=== PATIENT | female | born 1945 | race Caucasian/White ===

== ENCOUNTER 2018-01-21 12:39 | Inpatient (IN) | payer MEDICARE, OTHER ==
[~2018-01-21] VITALS: Ht 162.6 cm; Wt 71.6 kg
[~2018-01-21 12:39] MED LIST: ASPI81; CATA0.2D; DEPA500T3; LEVO.1; LEXA10TA; ZIPR1CAP27; ZIPR20
[2018-01-21 13:05] VITALS: BP 159/81; PULSE 68; RESP 18; TEMP 98.2; O2SAT 96
--- NOTE | 2018-01-21 13:13 | PD ---
HPI Chief Complaint: Psychiatric Symptoms Time Seen by Provider: 12:53 Travel History International Travel<30 days: No Contact w/Intl Traveler<30days: No Traveled to known affect area: No History of Present Illness HPI The patient is a 72-year-old female who presents to the emergency department with her from Dr. Karina Harrison office for psychiatric evaluation. The patient has a history of psychosis, does take medications, however, the patient and the cannot recall the name of the medications. The patient was seen 1 month ago, upon repeat visit today with Dr. Harrison it was noted the patient had an 18 pound weight loss. The patient's states the patient will sit and stare at the wall, has not been sleeping well as of lately, and has not been eating. He states the patient normally requires 8-10 hours of sleep plus a nap daily, however, she is only been sleeping approximately 2 hours/day. The states the patient will sit and stare at the wall. The patient states she has not been eating, however, she states she has been sleeping well. She denies any auditory or visual hallucinations or delusions. She denies any physical complaints except for mild shortness of breath when she is working out in the yard. She denies any headache, neck pain , current chest pain, current shortness of breath, nausea, vomiting, or abdominal pain. Symptoms are moderate. The patient is a somewhat limited historian. Much of the history is obtained from the . PFSH Past Medical History Arthritis: Yes (RA) Asthma: No Blood Disorders: No Bipolar Disorder: Yes Anxiety: Yes Depression: Yes Heart Rhythm Problems: No Cancer: Yes (THYROID CA IN 2000) Cardiovascular Problems: Yes (HEART MURMUR) High Cholesterol: No Chest Pain: No Congestive Heart Failure: No COPD: No Cerebrovascular Accident: No Coronary Artery Disease: Yes Diabetes: No Diminished Hearing: No Endocrine: Yes (THYROIDECTOM S/P [place] 2000) GERD: No Genitourinary: No Headaches: No Hepatitis: No Hiatal Hernia: No Hypertension: Yes Immune Disorder: No Kidney Stones: No Musculoskeletal: Yes (RHEUMATOID ARTHRITIS) Neurologic: No Psychiatric: Yes ([facility] 2000, BIPOLAR) Reproductive: No Respiratory: No Integumentary: Yes (STATES SKIN INFECTION ON FOREHEAD) Migraines: No Myocardial Infarction: No Radiation Therapy: Yes Renal Failure: No Seizures: No Sleep Apnea: No Thyroid Disease: Yes (THYROID CANCER) Ulcer: No Past Surgical History Abdominal Surgery: No AICD: No Appendectomy: No Arteriovenous Shunt: No Cardiac Surgery: No Cholecystectomy: No Ear Surgery: No Endocrine Surgery: Yes (THYROIDECTOMY 2000) Eye Surgery: No Genitourinary Surgery: No Gynecologic Surgery: No Insulin Pump: No Joint Replacement: No Oral Surgery: No Pacemaker: No Thoracic Surgery: No Tonsillectomy: Yes Other Surgery: Yes (LUMPECTOMY, RT BREAST CYST REMOVE) Social History Alcohol Use: No Tobacco Use: No Substance Use: No Allergies-Medications (Allergen,Severity, Reaction): Coded Allergies: Iodinated Contrast- Oral and IV Dye (Verified Allergy, Unknown, 01/21/18) Reported Meds & Prescriptions Reported Meds & Active Scripts Active Reported Valsartan-Hydrochlorothiazide 320-25 Mg Tab 1 Tab PO DAILY Valsartan 80 Mg Tab 160 Mg PO BID Norvasc (Amlodipine Besylate) 5 Mg Tab 5 Mg PO DAILY Synthroid (Levothyroxine Sodium) 125 Mcg Tab 125 Mcg PO EVERY OTHER DAY Alternate with Synthroid 137mcg every other day Synthroid (Levothyroxine Sodium) 137 Mcg Tab 137 Mcg PO EVERY OTHER DAY Alternate with Synthroid 125mcg every other day Trazodone (Trazodone HCl) 150 Mg Tablet 150-300 Mg PO HS PRN Ativan (Lorazepam) 1 Mg Tab 1 Mg PO TID PRN Aspirin Adult Low Strength (Aspirin) 81 Mg Tabdr 81 Mg PO DAILY Review of Systems ROS Limitations: Poor Historian Except as stated in HPI: all other systems reviewed are Neg General / Constitutional: Positive: Weight Loss (18 pound weight loss according to the ), No: Fever HENT: No: Lightheadedness Cardiovascular: Positive: Dyspnea on exertion (Shortness of breath when working on the yard), No: Chest Pain or Discomfort Respiratory: No: Shortness of Breath Gastrointestinal: No: Nausea, Vomiting, Abdominal Pain Psychiatric: Positive: Other (History of psychosis, according to the the patient has not been eating and has not been sleeping for the last month), No: Depression, Suicidal Ideations, Substance Abuse, Homicidal Ideation Physical Exam Narrative GENERAL: Awake, alert, pleasant 9-year-old female who appears her stated age and is in no acute respiratory distress. SKIN: Focused skin assessment warm/dry. HEAD: Atraumatic. Normocephalic. EYES: Pupils equal and round. 3 mm bilateral and reactive. ENT: No nasal bleeding or discharge. Mucous membranes pink and moist. NECK: Trachea midline. No JVD. CARDIOVASCULAR: Regular rate and rhythm. Holosystolic murmur noted. RESPIRATORY: No accessory muscle use. Clear to auscultation. Breath sounds equal bilaterally. GASTROINTESTINAL: Abdomen soft, non-tender, nondistended. MUSCULOSKELETAL: No obvious deformities. No clubbing. No cyanosis. No edema. NEUROLOGICAL: Awake and alert. No obvious cranial nerve deficits. Motor grossly within normal limits. Normal speech. PSYCHIATRIC: Flat affect. Data Data Last Documented VS Vital Signs Date Time Temp Pulse Resp B/P (MAP) Pulse Ox O2 Delivery O2 Flow Rate FiO2 01/21/18:18 68 20 01/21/18 13:05 98.2 159/81 (107) 96 Room Air Orders Orders Complete Blood Count With Diff (01/21/18 13:05) Comprehensive Metabolic Panel (01/21/18 13:05) Thyroid Stimulating Hormone (01/21/18 13:05) Urinalysis - C+S If Indicated (01/21/18 13:05) Electrocardiogram (01/21/18 13:05) Psych Screen (01/21/18 13:05) Drug Screen, Random Urine (01/21/18 13:05) Alcohol (Ethanol) (01/21/18 13:05) Valproic Acid (Depakene) (01/21/18 13:05) Free T3 (01/21/18 14:43) Free Thyroxine (T4) (01/21/18 14:43) Urine Culture (01/21/18 15:00) Ciprofloxacin (Cipro) (01/21/18 16:15) Labs Laboratory Tests Test 01/21/18 13:10 01/21/18 15:00 White Blood Count 8.7 TH/MM3 Red Blood Count 4.68 MIL/MM3 Hemoglobin 14.5 GM/DL Hematocrit 42.0 % Mean Corpuscular Volume 89.8 FL Mean Corpuscular Hemoglobin 31.0 PG Mean Corpuscular Hemoglobin Concent 34.5 % Red Cell Distribution Width 14.5 % Platelet Count 281 TH/MM3 Mean Platelet Volume 10.3 FL Neutrophils (%) (Auto) 77.1 % Lymphocytes (%) (Auto) 17.5 % Monocytes (%) (Auto) 4.3 % Eosinophils (%) (Auto) 0.3 % Basophils (%) (Auto) 0.8 % Neutrophils # (Auto) 6.7 TH/MM3 Lymphocytes # (Auto) 1.5 TH/MM3 Monocytes # (Auto) 0.4 TH/MM3 Eosinophils # (Auto) 0.0 TH/MM3 Basophils # (Auto) 0.1 TH/MM3 CBC Comment DIFF FINAL Differential Comment Blood Urea Nitrogen 24 MG/DL Creatinine 0.85 MG/DL Random Glucose 105 MG/DL Total Protein 7.7 GM/DL Albumin 4.3 GM/DL Calcium Level 9.9 MG/DL Alkaline Phosphatase 62 U/L Aspartate Amino Transf (AST/SGOT) 30 U/L Alanine Aminotransferase (ALT/SGPT) 34 U/L Total Bilirubin 0.7 MG/DL Sodium Level 136 MEQ/L Potassium Level 3.4 MEQ/L Chloride Level 100 MEQ/L Carbon Dioxide Level 22.3 MEQ/L Anion Gap 14 MEQ/L Estimat Glomerular Filtration Rate 66 ML/MIN Free Thyroxine 1.46 NG/DL Free Triiodothyronine (T3) pg/dL 1.79 PG/ML Thyroid Stimulating Hormone 3rd Gen 15.200 uIU/ML Valproic Acid (Depakene) Level LESS THAN 3 MCG/ML Ethyl Alcohol Level LESS THAN 3 MG/DL Urine Color YELLOW Urine Turbidity HAZY Urine pH 6.0 Urine Specific [place] 1.034 Urine Protein 100 mg/dL Urine Glucose (UA) NEG mg/dL Urine Ketones 40 mg/dL Urine Occult Blood SMALL Urine Nitrite NEG Urine Bilirubin NEG Urine Urobilinogen 4.0 MG/DL Urine Leukocyte Esterase LARGE Urine RBC 2 /hpf Urine WBC 17 /hpf Urine Squamous Epithelial Cells 1 /hpf Urine Bacteria FEW /hpf Urine Hyaline Casts 36 /lpf Urine Mucus MANY /lpf Microscopic Urinalysis Comment CULTURE INDICATED Urine Opiates Screen NEG Urine Barbiturates Screen NEG Urine Amphetamines Screen NEG Urine Benzodiazepines Screen NEG Urine Cocaine Screen NEG Urine Cannabinoids Screen NEG MDM Medical Decision Making Medical Screen Exam Complete: Yes Emergency Medical Condition: Yes Medical Record Reviewed: Yes Interpretation(s) EKG reveals sinus rhythm with occasional supraventricular premature complex. QTc 468 ms. Laboratory Tests Test 01/21/18 13:10 01/21/18 15:00 White Blood Count 8.7 TH/MM3 Red Blood Count 4.68 MIL/MM3 Hemoglobin 14.5 GM/DL Hematocrit 42.0 % Mean Corpuscular Volume 89.8 FL Mean Corpuscular Hemoglobin 31.0 PG Mean Corpuscular Hemoglobin Concent 34.5 % Red Cell Distribution Width 14.5 % Platelet Count 281 TH/MM3 Mean Platelet Volume 10.3 FL Neutrophils (%) (Auto) 77.1 % Lymphocytes (%) (Auto) 17.5 % Monocytes (%) (Auto) 4.3 % Eosinophils (%) (Auto) 0.3 % Basophils (%) (Auto) 0.8 % Neutrophils # (Auto) 6.7 TH/MM3 Lymphocytes # (Auto) 1.5 TH/MM3 Monocytes # (Auto) 0.4 TH/MM3 Eosinophils # (Auto) 0.0 TH/MM3 Basophils # (Auto) 0.1 TH/MM3 CBC Comment DIFF FINAL Differential Comment Blood Urea Nitrogen 24 MG/DL Creatinine 0.85 MG/DL Random Glucose 105 MG/DL Total Protein 7.7 GM/DL Albumin 4.3 GM/DL Calcium Level 9.9 MG/DL Alkaline Phosphatase 62 U/L Aspartate Amino Transf (AST/SGOT) 30 U/L Alanine Aminotransferase (ALT/SGPT) 34 U/L Total Bilirubin 0.7 MG/DL Sodium Level 136 MEQ/L Potassium Level 3.4 MEQ/L Chloride Level 100 MEQ/L Carbon Dioxide Level 22.3 MEQ/L Anion Gap 14 MEQ/L Estimat Glomerular Filtration Rate 66 ML/MIN Free Thyroxine 1.46 NG/DL Free Triiodothyronine (T3) pg/dL 1.79 PG/ML Thyroid Stimulating Hormone 3rd Gen 15.200 uIU/ML Valproic Acid (Depakene) Level LESS THAN 3 MCG/ML Ethyl Alcohol Level LESS THAN 3 MG/DL Urine Color YELLOW Urine Turbidity HAZY Urine pH 6.0 Urine Specific [place] 1.034 Urine Protein 100 mg/dL Urine Glucose (UA) NEG mg/dL Urine Ketones 40 mg/dL Urine Occult Blood SMALL Urine Nitrite NEG Urine Bilirubin NEG Urine Urobilinogen 4.0 MG/DL Urine Leukocyte Esterase LARGE Urine RBC 2 /hpf Urine WBC 17 /hpf Urine Squamous Epithelial Cells 1 /hpf Urine Bacteria FEW /hpf Urine Hyaline Casts 36 /lpf Urine Mucus MANY /lpf Microscopic Urinalysis Comment CULTURE INDICATED Urine Opiates Screen NEG Urine Barbiturates Screen NEG Urine Amphetamines Screen NEG Urine Benzodiazepines Screen NEG Urine Cocaine Screen NEG Urine Cannabinoids Screen NEG Differential Diagnosis Differential diagnosis includes psychosis, schizophrenia, catatonic schizophrenia, depressive disorder NOS, depression with psychosis, hypothyroidism, delirium, UTI, dehydration, acute kidney injury. Narrative Course Labs are drawn and sent. UA and TSH were sent to lab. The patient's TSH was elevated, therefore, free T4 and free T3 were sent to lab. Free T4 is within normal limits, free T3 slightly low. UA does reveal 17 WBCs, therefore, patient will be treated for UTI with Cipro. The patient is medically cleared to be evaluated by psychiatry. Disposition as per psych. Diagnosis Primary Impression: Severe major depression with psychotic features Additional Impressions: UTI (urinary tract infection) Qualified Codes: N30.00 - Acute cystitis without hematuria Hypothyroidism Qualified Codes: E03.9 - Hypothyroidism, unspecified Med/Other Pt SpecificInfo: Prescription(s) given Scripts Ciprofloxacin (Cipro) 500 Mg Tab 500 MG PO BID for Infection for 7 Days, #14 TAB 0 Refills Prov: Pastor Matamoros MD 01/21/18 Condition: Stable Pastor Matamoros MD Jan 21, 2018 13:12
[2018-01-21 13:38] LABS: AUTOMATED NEUTROPHIL # 6.7 TH/MM3 (1.8-7.7); BASOPHIL # 0.1 TH/MM3 (0-0.2); BASOPHIL % 0.8 % (0.0-2.0); EOSINOPHIL % 0.3 % (0.0-4.0); HEMOGLOBIN 14.5 GM/DL (11.6-15.3); LYMPH % 17.5 % (9.0-44.0); LYMPHOCYTE # 1.5 TH/MM3 (1.0-4.8); MEAN CELL VOLUME 89.8 FL (80.0-100.0); MEAN CORPUSCULAR HGB CONC 34.5 % (32.0-36.0); MEAN PLATELET VOLUME 10.3 FL (7.0-11.0); MONO % 4.3 % (0.0-8.0); MONOCYTE # 0.4 TH/MM3 (0-0.9); NEUT % 77.1 % (16.0-70.0); PLATELET COUNT 281 TH/MM3 (150-450); RED BLOOD COUNT 4.68 MIL/MM3 (4.00-5.30); RED CELL DISTRIBUTION WIDTH 14.5 % (11.6-17.2); WHITE BLOOD COUNT 8.7 TH/MM3 (4.0-11.0)
[2018-01-21 13:54] LABS: ALBUMIN 4.3 GM/DL (3.4-5.0); ALT (GPT) 34 U/L (10-53); BICARBONATE 22.3 MEQ/L (21.0-32.0); BLOOD UREA NITROGEN 24 MG/DL (7-18); CALCIUM 9.9 MG/DL (8.5-10.1); CHLORIDE 100 MEQ/L (98-107); CREATININE 0.85 MG/DL (0.50-1.00); GLOMERULAR FILTRATION RATE 66 ML/MIN (>89); GLUCOSE,RANDOM 105 MG/DL (74-106); SODIUM (NA) 136 MEQ/L (136-145)
[2018-01-21 14:03] LABS: ALKALINE PHOSPHATASE 62 U/L (45-117); AST (GOT) 30 U/L (15-37); TOTAL BILIRUBIN ADULT 0.7 MG/DL (0.2-1.0); TOTAL PROTEIN 7.7 GM/DL (6.4-8.2)
[2018-01-21 15:31] LABS: BACTERIA, URINE FEW /hpf; BLOOD, URINE SMALL (NEG); GLUCOSE,URINE NEG (NEG); HYALINE CAST, URINE 36 /lpf (RARE); KETONE, URINE 40 mg/dL (NEG); MUCUS URINE MANY /lpf (OCC); NITRITE,URINE NEG (NEG); SQUAMOUS EPITHELIAL CELL URINE 1 /hpf (0-5); URINE COLOR YELLOW (YELLW/STRAW); URINE LEUKOCYTE ESTERASE LARGE (NEG)
[2018-01-21 15:57] LABS: FREE T3 1.79 PG/ML (2.18-3.98); FREE T4 1.46 NG/DL (0.76-1.46)
[2018-01-21 15:58] LABS: BILIRUBIN, URINE NEG (NEG)
[2018-01-21] MEDS ORDERED: CIPROFLOXACIN 500 MG TAB PO ONE (16:15)
[2018-01-21] MEDS ORDERED: LORA-474 PO (16:16)
[2018-01-21] MEDS ORDERED: TRAZ1TAB14 PO (16:16)
[2018-01-21] MEDS ORDERED: LEVO-86 PO (16:16)
[2018-01-21] MEDS ORDERED: AMLO5 PO (16:16)
[2018-01-21] MEDS ORDERED: LEVO.125 PO (16:16)
[2018-01-21] MEDS ORDERED: VALS320T6 PO (16:16)
[2018-01-21] MEDS ORDERED: ASPI81TA16 PO (16:16)
[2018-01-21] MEDS ORDERED: VALS1TAB64 PO (16:16)
[2018-01-21] MEDS ORDERED: CIPR-9 PO (16:18)
[2018-01-22 01:00] VITALS: BP 173/86; PULSE 76; RESP 16; O2SAT 97
--- NOTE | 2018-01-22 06:36 | PD ---
Physical Exam Date Seen by Provider: Jan 22, 2018 Time Seen by Provider: 00:00 Narrative medically cleared by Dr Matamoros for psych evaluation Data Data Last Documented VS Vital Signs Date Time Temp Pulse Resp B/P (MAP) Pulse Ox O2 Delivery O2 Flow Rate FiO2 01/22/18 01:00 76 16 173/86 (115) 97 Room Air 01/21/18 13:05 98.2 Orders Orders Complete Blood Count With Diff (01/21/18 13:05) Comprehensive Metabolic Panel (01/21/18 13:05) Thyroid Stimulating Hormone (01/21/18 13:05) Urinalysis - C+S If Indicated (01/21/18 13:05) Electrocardiogram (01/21/18 13:05) Psych Screen (01/21/18 13:05) Drug Screen, Random Urine (01/21/18 13:05) Alcohol (Ethanol) (01/21/18 13:05) Valproic Acid (Depakene) (01/21/18 13:05) Free T3 (01/21/18 14:43) Free Thyroxine (T4) (01/21/18 14:43) Urine Culture (01/21/18 15:00) Ciprofloxacin (Cipro) (01/21/18 16:15) Labs Laboratory Tests Test 01/21/18 13:10 01/21/18 15:00 White Blood Count 8.7 TH/MM3 Red Blood Count 4.68 MIL/MM3 Hemoglobin 14.5 GM/DL Hematocrit 42.0 % Mean Corpuscular Volume 89.8 FL Mean Corpuscular Hemoglobin 31.0 PG Mean Corpuscular Hemoglobin Concent 34.5 % Red Cell Distribution Width 14.5 % Platelet Count 281 TH/MM3 Mean Platelet Volume 10.3 FL Neutrophils (%) (Auto) 77.1 % Lymphocytes (%) (Auto) 17.5 % Monocytes (%) (Auto) 4.3 % Eosinophils (%) (Auto) 0.3 % Basophils (%) (Auto) 0.8 % Neutrophils # (Auto) 6.7 TH/MM3 Lymphocytes # (Auto) 1.5 TH/MM3 Monocytes # (Auto) 0.4 TH/MM3 Eosinophils # (Auto) 0.0 TH/MM3 Basophils # (Auto) 0.1 TH/MM3 CBC Comment DIFF FINAL Differential Comment Blood Urea Nitrogen 24 MG/DL Creatinine 0.85 MG/DL Random Glucose 105 MG/DL Total Protein 7.7 GM/DL Albumin 4.3 GM/DL Calcium Level 9.9 MG/DL Alkaline Phosphatase 62 U/L Aspartate Amino Transf (AST/SGOT) 30 U/L Alanine Aminotransferase (ALT/SGPT) 34 U/L Total Bilirubin 0.7 MG/DL Sodium Level 136 MEQ/L Potassium Level 3.4 MEQ/L Chloride Level 100 MEQ/L Carbon Dioxide Level 22.3 MEQ/L Anion Gap 14 MEQ/L Estimat Glomerular Filtration Rate 66 ML/MIN Free Thyroxine 1.46 NG/DL Free Triiodothyronine (T3) pg/dL 1.79 PG/ML Thyroid Stimulating Hormone 3rd Gen 15.200 uIU/ML Valproic Acid (Depakene) Level LESS THAN 3 MCG/ML Ethyl Alcohol Level LESS THAN 3 MG/DL Urine Color YELLOW Urine Turbidity HAZY Urine pH 6.0 Urine Specific [place] 1.034 Urine Protein 100 mg/dL Urine Glucose (UA) NEG mg/dL Urine Ketones 40 mg/dL Urine Occult Blood SMALL Urine Nitrite NEG Urine Bilirubin NEG Urine Urobilinogen 4.0 MG/DL Urine Leukocyte Esterase LARGE Urine RBC 2 /hpf Urine WBC 17 /hpf Urine Squamous Epithelial Cells 1 /hpf Urine Bacteria FEW /hpf Urine Hyaline Casts 36 /lpf Urine Mucus MANY /lpf Microscopic Urinalysis Comment CULTURE INDICATED Urine Opiates Screen NEG Urine Barbiturates Screen NEG Urine Amphetamines Screen NEG Urine Benzodiazepines Screen NEG Urine Cocaine Screen NEG Urine Cannabinoids Screen NEG MDM Medical Record Reviewed: Yes Supervised Visit with OTIS: No Differential Diagnosis please refer to Dr Mataomros's note Narrative Course please refer to Dr Matamoros's note Patietn resting quietly voicing no complaints--waiting for psych evaluation Diagnosis Primary Impression: Severe major depression with psychotic features Additional Impressions: Hypothyroidism Qualified Codes: E03.9 - Hypothyroidism, unspecified UTI (urinary tract infection) Qualified Codes: N30.00 - Acute cystitis without hematuria Scripts Ciprofloxacin (Cipro) 500 Mg Tab 500 MG PO BID for Infection for 7 Days, #14 TAB 0 Refills Prov: Pastor Matamoros MD 01/21/18 Condition: Stable Temi House MD Jan 22, 2018 06:36
[2018-01-22 07:46] VITALS: BP 144/85; PULSE 83; RESP 18; O2SAT 98
--- NOTE | 2018-01-22 09:21 | PD ---
History of Present Illness Chief Complaint: Psychiatric Symptoms Time Seen by Provider: 09:00 Travel History International Travel<30 Days: No Contact w/Intl Traveler<30days: No Known affected area: No Legal Status Legal Status: Involuntary Bailey Act Comment: JO Arment[place] History of Present Illness: History of Present Illness HPI The patient is a 72-year-old , female with past psychiatric history of bipolar disorder, depressed, psychosis NOS, hx thyroidectomy ,who presents to the emergency department with her from Dr. Karina Harrison office for psychiatric evaluation. As per ED documentation "the patient was seen at her primary care's office with a reported weight loss of 18 pounds in the last 4 weeks. The reports that the patient will sit and stare at the wall, has not been sleeping well and only getting about 2 hours of sleep per day, has not been eating. EMR is reviewed. UA is positive for UTI, TSH elevated, free T4 WNL, Free T3 sl low. EKG obtained in ED. The patient was last psychiatric hospitalized at [facility] in 2006. At that time she presented with paranoia, agitation, hypomanic. I attempted to obtain collateral information from her , Ilya at [phone]. Generic message left for him to call [facility]. As per nursing report the patient has not eaten since she has been here in the ED. The patient is seen. She is awake. She is dressed casually and maintaining basic hygiene. There is significant psychomotor retardation noted. Her affect is very blunted. Her speech is very soft, latency of response, monosyllabic. She is alert and oriented 4. Denies any hallucinations. She appears internally preoccupied. No paranoia or delusions. Denies suicidal or homicidal ideation, intent or plan. Patient is hesitant and when admission is recommended she is hesitant about such, therefore she will be placed under an involuntary status. PFSH Past Medical History Arthritis: Yes (RA) Asthma: No Blood Disorders: No Bipolar Disorder: Yes Anxiety: Yes Depression: Yes Heart Rhythm Problems: No Cancer: Yes (THYROID CA IN 2000) Cardiovascular Problems: Yes (HEART MURMUR) High Cholesterol: No Chest Pain: No Congestive Heart Failure: No COPD: No Cerebrovascular Accident: No Coronary Artery Disease: Yes Diabetes: No Diminished Hearing: No Endocrine: Yes (THYROIDECTOMy S/P CA IN 2000) GERD: No Genitourinary: No Headaches: No Hepatitis: No Hiatal Hernia: No Hypertension: Yes Immune Disorder: No Kidney Stones: No Musculoskeletal: Yes (RHEUMATOID ARTHRITIS) Neurologic: No Psychiatric: Yes (HPC 2000, BIPOLAR) Reproductive: No Respiratory: No Integumentary: Yes (STATES SKIN INFECTION ON FOREHEAD) Immunizations Current: Yes Migraines: No Myocardial Infarction: No Radiation Therapy: Yes Renal Failure: No Seizures: No Sleep Apnea: No Thyroid Disease: Yes (THYROID CANCER) Ulcer: No Past Surgical History Abdominal Surgery: No AICD: No Appendectomy: No Arteriovenous Shunt: No Cardiac Surgery: No Cholecystectomy: No Ear Surgery: No Endocrine Surgery: Yes (THYROIDECTOMY 2000) Eye Surgery: No Genitourinary Surgery: No Gynecologic Surgery: No Insulin Pump: No Joint Replacement: No Oral Surgery: No Pacemaker: No Thoracic Surgery: No Tonsillectomy: Yes Other Surgery: Yes (LUMPECTOMY, RT BREAST CYST REMOVE) Psychiatric History Psychiatric History Hx Psychiatric Treatment: Past admission January 2007x 2 for psychotic disorder, hypomania. Denies past suicide attempt. Patient not currently being treated by psychiatry. History of Inpatient Treatment: Yes Guns or firearms in home: No Social History Most of the information is obtained from review of the record. The patient has been since 2002. She lives with her Ilya. She is retired. Has a degree in business. And worked for her [employer]. Hx Alcohol Use: No Hx Tobacco Use: No Hx Substance Use: No Hx of Substance Use Treatment: No Allergies-Medications (Allergen,Severity, Reaction): Coded Allergies: Iodinated Contrast- Oral and IV Dye (Verified Allergy, Unknown, 01/21/18) Reported Meds & Prescriptions Reported Meds & Active Scripts Active Cipro (Ciprofloxacin HCl) 500 Mg Tab 500 Mg PO BID 7 Days Reported Valsartan-Hydrochlorothiazide 320-25 Mg Tab 1 Tab PO DAILY Valsartan 80 Mg Tab 160 Mg PO BID Norvasc (Amlodipine Besylate) 5 Mg Tab 5 Mg PO DAILY Synthroid (Levothyroxine Sodium) 125 Mcg Tab 125 Mcg PO EVERY OTHER DAY Alternate with Synthroid 137mcg every other day Synthroid (Levothyroxine Sodium) 137 Mcg Tab 137 Mcg PO EVERY OTHER DAY Alternate with Synthroid 125mcg every other day Trazodone (Trazodone HCl) 150 Mg Tablet 150-300 Mg PO HS PRN Ativan (Lorazepam) 1 Mg Tab 1 Mg PO TID PRN Aspirin Adult Low Strength (Aspirin) 81 Mg Tabdr 81 Mg PO DAILY Review of Systems ROS Limitations: Poor Historian Constitutional: COMPLAINS OF: Weight loss Psychiatric: COMPLAINS OF: Mood changes, Depression Mental Status Examination Appearance: Appropriate Consciousness: Alert Orientation: x4 Motor Activity: Other (Psychomotor retardation) Speech: Hesitant, Slow Language: Adequate Fund of Knowledge: Adequate (Unable to evaluate) Attention and Concentration: Inadequate Memory: Unremarkable (Unable to evaluate with) Mood: Other (Depressed) Affect: Blunt Thought Process & Associations: Other (Appears internally preoccupied) Thought Content: Thought blocking Hallucination Type: None Delusion Type: None Suicidal Ideation: No Suicidal Plan: No Suicidal Intention: No Homicidal Ideation: No Homicidal Plan: No Homicidal Intention: No Insight: Fair Judgment: Poor MDM Medical Decision Making Medical Record Reviewed: Yes Assessment/Plan The patient is a 72-year-old , female with past psychiatric history of bipolar disorder, depressed, psychosis NOS, who presents to the emergency department with her from Dr. Karina Harrison office for psychiatric evaluation. As per ED documentation "the patient was seen at her primary care's office with a reported weight loss of 18 pounds in the last 4 weeks. The reports that the patient will sit and stare at the wall, has not been sleeping well and only getting about 2 hours of sleep per day, has not been eating. Patient on psychiatric evaluation presents with marked psychomotor retardation, depressed mood, thought blocking. At this time the patient will be admitted to inpatient psychiatric unit for further evaluation, stabilization, and medication adjustment. A consult with hospitalist will be obtained for management of medical issues. Orders Orders Complete Blood Count With Diff (01/21/18 13:05) Comprehensive Metabolic Panel (01/21/18 13:05) Thyroid Stimulating Hormone (01/21/18 13:05) Urinalysis - C+S If Indicated (01/21/18 13:05) Electrocardiogram (01/21/18 13:05) Psych Screen (01/21/18 13:05) Drug Screen, Random Urine (01/21/18 13:05) Alcohol (Ethanol) (01/21/18 13:05) Valproic Acid (Depakene) (01/21/18 13:05) Free T3 (01/21/18 14:43) Free Thyroxine (T4) (01/21/18 14:43) Urine Culture (01/21/18 15:00) Ciprofloxacin (Cipro) (01/21/18 16:15) Results Vital Signs Date Time Temp Pulse Resp B/P (MAP) Pulse Ox O2 Delivery O2 Flow Rate FiO2 01/22/18 07:46 83 18 144/85 (104) 98 Nasal Cannula 2.00 01/22/18 01:00 76 16 173/86 (115) 97 Room Air 01/21/18 13:18 68 20 01/21/18 13:05 98.2 68 18 159/81 (107) 96 Room Air Laboratory Tests Test 01/21/18 13:10 01/21/18 15:00 White Blood Count 8.7 Red Blood Count 4.68 Hemoglobin 14.5 Hematocrit 42.0 Mean Corpuscular Volume 89.8 Mean Corpuscular Hemoglobin 31.0 Mean Corpuscular Hemoglobin Concent 34.5 Red Cell Distribution Width 14.5 Platelet Count 281 Mean Platelet Volume 10.3 Neutrophils (%) (Auto) 77.1 Lymphocytes (%) (Auto) 17.5 Monocytes (%) (Auto) 4.3 Eosinophils (%) (Auto) 0.3 Basophils (%) (Auto) 0.8 Neutrophils # (Auto) 6.7 Lymphocytes # (Auto) 1.5 Monocytes # (Auto) 0.4 Eosinophils # (Auto) 0.0 Basophils # (Auto) 0.1 CBC Comment DIFF FINAL Differential Comment Blood Urea Nitrogen 24 Creatinine 0.85 Random Glucose 105 Total Protein 7.7 Albumin 4.3 Calcium Level 9.9 Alkaline Phosphatase 62 Aspartate Amino Transf (AST/SGOT) 30 Alanine Aminotransferase (ALT/SGPT) 34 Total Bilirubin 0.7 Sodium Level 136 Potassium Level 3.4 Chloride Level 100 Carbon Dioxide Level 22.3 Anion Gap 14 Estimat Glomerular Filtration Rate 66 Free Thyroxine 1.46 Free Triiodothyronine (T3) pg/dL 1.79 Thyroid Stimulating Hormone 3rd Gen 15.200 Valproic Acid (Depakene) Level LESS THAN 3 Ethyl Alcohol Level LESS THAN 3 Urine Color YELLOW Urine Turbidity HAZY Urine pH 6.0 Urine Specific [place] 1.034 Urine Protein 100 Urine Glucose (UA) NEG Urine Ketones 40 Urine Occult Blood SMALL Urine Nitrite NEG Urine Bilirubin NEG Urine Urobilinogen 4.0 Urine Leukocyte Esterase LARGE Urine RBC 2 Urine WBC 17 Urine Squamous Epithelial Cells 1 Urine Bacteria FEW Urine Hyaline Casts 36 Urine Mucus MANY Microscopic Urinalysis Comment CULTURE INDICATED Urine Opiates Screen NEG Urine Barbiturates Screen NEG Urine Amphetamines Screen NEG Urine Benzodiazepines Screen NEG Urine Cocaine Screen NEG Urine Cannabinoids Screen NEG Date/Time Source Procedure Growth Status 01/21/18 15:00 Urine Random Urine Urine Culture Pending Received Diagnosis Primary Impression: Severe major depression with psychotic features Additional Impressions: Hypothyroidism UTI (urinary tract infection) Bipolar disorder current episode depressed Admitting Information Admitting Physician Requests: Admit Prescriptions Ciprofloxacin (Cipro) 500 Mg Tab 500 MG PO BID for Infection for 7 Days, #14 TAB 0 Refills Prov: Pastor Matamoros MD 01/21/18 Condition: Stable Problem Qualifiers Additional Impressions: Hypothyroidism Qualified Codes: E03.9 - Hypothyroidism, unspecified UTI (urinary tract infection) Qualified Codes: N30.00 - Acute cystitis without hematuria Agnieszka Miranda Jan 22, 2018 09:20
[2018-01-22] MEDS ORDERED: ACETAMINOPHEN 325 MG TAB PO PRN (10:00)
[2018-01-22] MEDS ORDERED: ALUMINUM/MAGNESIUM/SIMETH 30 ML CUP PO PRN (10:00)
[2018-01-22 14:09] VITALS: BP 142/81; PULSE 78; RESP 16; TEMP 97.5
--- NOTE | 2018-01-22 18:28 | EKG ---
Date Performed: 01/21/2018 Time Performed: 13:28:18 PTAGE: 72 years EKG: Sinus rhythm WITH OCCASIONAL SUPRAVENTRICULAR PREMATURE COMPLEXES PROLONGED QT INTERVAL ABNORMAL ECG INTERPRETATI ON BASED ON A DEFAULT AGE OF 40 YEARS PREVIOUS TRACING : 02/06/2007 00.17 Since the previous tracing, no significant change not ed DOCTOR: Mariah Mendoza Interpretating Date/Time 01/22/2018 18:26:38
[2018-01-23 05:52] VITALS: BP 155/86; PULSE 101; RESP 18; TEMP 97.7; O2SAT 97
[2018-01-23 08:17] LABS: AUTOMATED NEUTROPHIL # 4.6 TH/MM3 (1.8-7.7); BASOPHIL % 0.6 % (0.0-2.0); EOSINOPHIL % 0.7 % (0.0-4.0); HEMATOCRIT 41.4 % (35.0-46.0); HEMOGLOBIN 14.3 GM/DL (11.6-15.3); LYMPH % 23.7 % (9.0-44.0); LYMPHOCYTE # 1.5 TH/MM3 (1.0-4.8); MEAN CELL VOLUME 90.7 FL (80.0-100.0); MEAN CORPUSCULAR HEMOGLOBIN 31.2 PG (27.0-34.0); MEAN CORPUSCULAR HGB CONC 34.4 % (32.0-36.0); MEAN PLATELET VOLUME 10.5 FL (7.0-11.0); MONOCYTE # 0.3 TH/MM3 (0-0.9); PLATELET COUNT 259 TH/MM3 (150-450); RED BLOOD COUNT 4.57 MIL/MM3 (4.00-5.30); RED CELL DISTRIBUTION WIDTH 14.4 % (11.6-17.2); WHITE BLOOD COUNT 6.5 TH/MM3 (4.0-11.0)
[2018-01-23 09:08] LABS: BICARBONATE 20.9 MEQ/L (21.0-32.0); BLOOD UREA NITROGEN 25 MG/DL (7-18); CALCIUM 9.5 MG/DL (8.5-10.1); CHLORIDE 101 MEQ/L (98-107); CHOLESTEROL 156 MG/DL (120-200); GLOMERULAR FILTRATION RATE 71 ML/MIN (>89); GLUCOSE,RANDOM 93 MG/DL (74-106); SODIUM (NA) 138 MEQ/L (136-145); TRIGLYCERIDES 109 MG/DL (42-150)
[2018-01-23 09:11] LABS: HDL CHOLESTEROL 34.6 MG/DL (40.0-60.0); LDL CHOLESTEROL 100 MG/DL (0-99)
[2018-01-23] MEDS: amLODIPine BESYLATE 5 MG TAB PO SCH (09:43)
[2018-01-23] MEDS: ASPIRIN EC 81 MG TABEC PO SCH (09:43)
--- NOTE | 2018-01-23 09:47 | HHI.HP ---
Provisional Diagnosis Admission Date Jan 22, 2018 at 09:54 [place] I. 1. Bipolar disorder, currently depressed, severe without psychotic features Rule out component of depression secondary to thyroid derangement [place] II. Deferred Certification of Person's Competence To Provide Express and Informed Consent I have personally examined Amanda Jones , a person being served at [facility] on, Jan 23, 2018 09:47. Express and informed consent means consent voluntarily given in writing, by a competent person, after sufficient explanation and disclosure of the subject matter involved to enable the person to make a knowing and willful decision without any element of force, fraud, deceit, duress, or other form of constraint or coercion. This person is 18 years of age or older, is not now known to be incompetent to consent to treatment with a guardian advocate, and does not have a health care surrogate or proxy currently making medical treatment decisions. I have found this person to be one of the following: [] Competent to provide express and informed consent, as defined above, for voluntary admission to this facility and is competent to provide express and informed consent for treatment. He/she has the consistent capacity to make well reasoned, willful, and knowing decisions concerning his or her medical or mental health treatment. The person fully and consistently understands the purpose of the admission for examination/placement and is fully capable of personally exercising all rights [place] [x] Incompetent to provide express and informed consent to voluntary admission, and this is incompetent to provide express and informed consent to treatment. The person must be transferred to involuntary status and a petition for a guardian advocate filed with the Circuit Court. [] Refusing to provide express and informed consent to voluntary admission but is competent to provide express and informed consent for treatment. The person must be discharged or transferred to involuntary status. Form shall be completed within 24 hours of a person's arrival at the receiving facility and filed in the clinical record of each person: 1. Admitted on a voluntary basis 2. Permitted to provide express and informed consent to his/her own treatment 3. Allowed to transfer from involuntary to voluntary status 4. Prior to permitting a person to consent to his or her own treatment after having been previously found incompetent to consent to treatment. History of Present Illness Capacity: Lacks Capacity Psych Chief Complaint: Depression, self-care deficit HPI Ms. Jones is a 72-year-old female with a history of bipolar disorder who was sent to the ED by primary care provider with out of concern for depression in self-care deficit. She was evaluated and placed under a Bailey act by the psychiatric nurse practitioner in the emergency department. Reviewing the electronic medical record, I note the patient was admitted under Dr. Escalante in 2006. Patient seen and examined with nurse. Chart reviewed. Case discussed with nursing staff. Patient has been refusing medications. I also see that there is notation of significant weight loss recently. Patient presents as delayed and psychomotor slowed. Speech is soft with increased speech latency. She appears somewhat fretful, anxious and dysphoric. She is a alexithymic with respect to mood but says that she has felt poorly for the last month or so. She says that her symptoms began after she tapered off steroids for management of a joint condition. She endorses poor sleep and poor appetite. I can elicit no hypomanic or manic symptoms presently. She denies any suicidal or homicidal ideation but seems unreliable to contract for safety. She denies any audiovisual hallucinations. I can elicit no jie delusional material. Remainder of the psychiatric ROS is negative. No acute physical complaints. [place] to obtain collateral information from patient's Ilya Jones. I called both numbers listed in the EMR and left a generic voicemail requesting a call back at both. [Update: was able to reach later. He is willing to act as HCS. We discuss at great length patient's pharmacotherapeutic options for her psychiatric condition. He provides consent for meds as detailed below. We discuss legal status. I spent ~10min in telephone consultation with .] I was able to reach patient's brother Jeannie Alamo at the number listed in the EMR. He notes that patient's psychiatric illness began shortly after she her current . He notes that the family does not trust current , although he makes no specific allegations of abuse or mistreatment against the patient. Brother notes that the patient began "acting weird" about 2 weeks ago, refusing food and fluids. She "went into a shell." He is unable to recall any previous treatment regimens that the patient has been on. He cannot recall if the patient has received ECT in the past. Past psychiatric history: Patient is likely a poor historian. She reports a history of psychiatric illness "in the way past." She is under the care of a psychiatrist but cannot recall the name. She says that she was psychiatrically admitted "a long time ago." She denies any history of suicide attempts. Denies any history of ECT treatment in the past. Family history: Patient denies any family history of mental illness. Chemical dependency history: Patient denies any abuse of drugs or alcohol. Social history: Patient lives with her and daughter. She also has a son. She is college educated. 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 She denies any history. Denies any legal history. reportedly keeps firearms but the patient denies any history of suicide plan involving a gun. The patient is a Confucianist. The patient denies a history of trauma. Review of Systems ROS Limitations: Poor Historian Except as stated in HPI: all other systems reviewed are Neg Past Family Social History Coded Allergies: Iodinated Contrast- Oral and IV Dye (Verified Allergy, Unknown, 01/21/18) Past Medical History See electronic medical record Active Scripts Ciprofloxacin (Cipro) 500 Mg Tab, 500 MG PO BID for Infection for 7 Days, #14 TAB 0 Refills Prov:Pastor Matamoros MD 01/21/18 Reported Medications Valsartan-Hydrochlorothiazide (Valsartan-Hydrochlorothiazide) 320-25 Mg Tab, 1 TAB PO DAILY for Blood Pressure Management, #30 TAB 0 Refills 01/21/18 Valsartan (Valsartan) 80 Mg Tab, 160 MG PO BID, #60 TAB 0 Refills 01/21/18 Amlodipine (Norvasc) 5 Mg Tab, 5 MG PO DAILY for Blood Pressure Management, #30 TAB 0 Refills 01/21/18 Levothyroxine (Synthroid) 125 Mcg Tab, 125 MCG PO EVERY OTHER DAY for Thyroid, # 30 TAB 0 Refills Alternate with Synthroid 137mcg every other day 01/21/18 Levothyroxine (Synthroid) 137 Mcg Tab, 137 MCG PO EVERY OTHER DAY for Thyroid, # 30 TAB 0 Refills Alternate with Synthroid 125mcg every other day 01/21/18 Trazodone (Trazodone) 150 Mg Tablet, 150-300 MG PO HS Y for SLEEP, #30 TAB 0 Refills 01/21/18 Lorazepam (Ativan) 1 Mg Tab, 1 MG PO TID Y for ANXIETY, TAB 0 Refills 01/21/[address] (Aspirin Adult Low Strength) 81 Mg Tabdr, 81 MG PO DAILY, TAB 01/21/18 Current Medications Medications (Trade) Dose Ordered Sig/Shayy Route Start Time Stop Time Status Last Admin (Tylenol) 650 mg Q4H PRN PO 01/22/18 10:00 (Milk Of Magnesia Liq) 30 ml DAILY PRN PO 01/22/18 10:00 (Mag-Al Plus Susp Liq) 30 ml Q6H PRN PO 01/22/18 10:00 (Norvasc) 5 mg DAILY PO 01/23/18 09:00 (Ecotrin Ec) 81 mg DAILY PO 01/23/18 09:00 Patient's Strengths (min. 2) In a monitored setting. Verbally fluent. Physical Exam Physical examination completed by ED provider. On my examination today, the patient appears to be in no acute physical distress. She is extremely psychomotor slowed. No adventitious motor abnormalities noted. Labs and vital signs reviewed: Vital Signs Vital Signs Date Time Temp Pulse Resp B/P (MAP) Pulse Ox O2 Delivery O2 Flow Rate FiO2 01/23/18 05:52 97.7 101 18 155/86 (109) 97 01/22/18 07:46 Nasal Cannula 2.00 I/O 01/23/18 01/23/18 01/24/18 08:00 16:00 00:00 Intake Total 120 ml Balance 120 ml Lab Results Item Value Date Time White Blood Count 6.5 TH/MM3 01/23/18 0644 Hemoglobin 14.3 GM/DL 01/23/18 0644 Platelet Count 259 TH/MM3 01/23/18 0644 Sodium Level 138 MEQ/L 01/23/18 0644 Potassium Level 3.3 MEQ/L L 01/23/18 0644 Chloride Level 101 MEQ/L 01/23/18 0644 Carbon Dioxide Level 20.9 MEQ/L L 01/23/18 0644 Anion Gap 16 MEQ/L H 01/23/18 0644 Blood Urea Nitrogen 25 MG/DL H 01/23/18 0644 Creatinine 0.80 MG/DL 01/23/18 0644 Estimat Glomerular Filtration Rate 71 ML/MIN L 01/23/18 0644 Random Glucose 93 MG/DL 01/23/18 0644 Aspartate Amino Transf (AST/SGOT) 30 U/L 01/21/18 1310 Alanine Aminotransferase (ALT/SGPT) 34 U/L 01/21/18 1310 Alkaline Phosphatase 62 U/L 01/21/18 1310 Free Thyroxine 1.46 NG/DL 01/21/18 1310 Free Triiodothyronine (T3) pg/dL 1.79 PG/ML L 01/21/18 1310 Thyroid Stimulating Hormone 3rd Gen 15.200 uIU/ML H 01/21/18 1310 Urine Opiates Screen NEG 01/21/18 1500 Urine Barbiturates Screen NEG 01/21/18 1500 Urine Amphetamines Screen NEG 01/21/18 1500 Urine Benzodiazepines Screen NEG 01/21/18 1500 Urine Cocaine Screen NEG 01/21/18 1500 Urine Cannabinoids Screen NEG 01/21/18 1500 Ethyl Alcohol Level LESS THAN 3 MG/DL 01/21/18 1310 Urinalysis concerning for UTI but urine culture reveals only mixed rafael. EKG reveals sinus rhythm with a QTC of 464 ms, borderline prolonged. Mental Status Examination Appearance: Appropriate Consciousness: Alert Orientation: x4 Motor Activity: Other (Extremely psychomotor slowed) Speech: Hesitant, Slow Language: Adequate Fund of Knowledge: Adequate Attention and Concentration: Inadequate Memory: Unremarkable (Grossly intact on clinical exam) Mood: Other (Alexithymic) Affect: Anxious, Other (Dysphoric) Thought Process & Associations: Other (Slowed) Thought Content: Appropriate Hallucination Type: None Delusion Type: None Suicidal Ideation: No (Unreliable to contract for safety) Suicidal Plan: No Suicidal Intention: No Homicidal Ideation: No Homicidal Plan: No Homicidal Intention: No Insight: Poor Judgment: Poor Assessment & Plan Problem List: (1) Bipolar disorder, current episode depressed, severe, without psychotic features ICD Codes: F31.4 - Bipolar disorder, current episode depressed, severe, without psychotic features Assessment & Plan 72-year-old female with psychiatric history as detailed above who is presently admitted to the inpatient psychiatric unit under a Bailey act. On my examination today, the patient presents as depressed with extremely prominent psychomotor slowing. I note that she has refused medication and her oral intake has been spotty at best. QTc is borderline prolonged and so I think it is prudent to hold off on utilizing antipsychotic for patient's bipolar depression until she can be cleared from the cardiology standpoint. Given this , we are left with lithium, Depakote and Lamictal as primary options for management of patient's bipolar depression. Court order for extraordinary treatment with ECT should be considered if patient refuses or fails to respond to pharmacotherapy for bipolar depression. Patient requires psychiatric hospitalization at this time for safety, observation and stabilization. Admit inpatient. Involuntary status. I have completed first opinion. Consult for second opinion. Request healthcare surrogate and guardian advocate. For mood stabilization, start Depakote DR 500mg BID with plans to check a level after appropriate interval. LFTs and platelets okay. Ativan as needed for anxiety. Ambien as needed for sleep. R/B/A for medications discussed at length with patient's healthcare surrogate (); we also discussed the possibility of ECT. Hospitalist consultation. Cardiology consultation regarding QTc prolongation and possible use of antipsychotics. PT evaluation. Fall precautions. Dietitian consultation. I&Os. TIW weights. Vitals every shift. Counselor to see. Disposition planning. Estimated length of stay: 10- 14 days. Discharge Planning Pending psychiatric stabilization Request HC Surrog/Guard Advoc?: Yes Medardo Hunter MD Jan 23, 2018 09:47
[2018-01-23] MEDS ORDERED: POTASSIUM CHLORIDE 20 MEQ CONTROLLED RELEASE TAB PO ONE (10:15)
--- NOTE | 2018-01-23 11:00 | PD.CONS ---
HPI Service [facility] Consult Requested By JO Chavez Reason for Consult Possible UTI, history of thyroidectomy. Primary Care Physician Karina Harrison MD Diagnoses: History of Present Illness 72-year-old female who reports a past medical history significant for hypertension, hypothyroidism following thyroidectomy due to cancer, rheumatoid arthritis, heart murmur, bipolar disorder, depression, and fibromyalgia who presented to the emergency department accompanied by her on 01/21 from patient's doctor's office. Patient had apparently had an 18 pound weight loss along with decreased appetite which prompted referral to the emergency department. She was seen and evaluated in the emergency department and cleared medically, provided with a one-time dose of Cipro for possible UTI. She was seen and evaluated by psychiatry [facility] and admitted to inpatient psychiatry for further treatment. [facility] has been consulted to assist with management of medical condition including possible UTI and status post thyroidectomy. Spoke with nurse reports that patient has been calm and has basically kept to herself. Did note that patient refused her morning medications. Patient is seen and examined sitting in the day room in no acute distress. She is awake, alert, oriented to self, place, and time. She is able to provide me with her past medical and surgical history but does appear to be somewhat forgetful regarding specific dates as well as specific doses of her medications. She does note that for the past several weeks she has had decrease in appetite and is aware that she has lost weight. She denies any recent fevers, chills, nausea , vomiting, diarrhea, abdominal pain, shortness of breath, cough, headache, dizziness, lightheadedness, or chest pain. She denies any dysuria, hematuria, frequency or urinary incontinence. She does endorse constipation, is unable to remember when was her last bowel movement. Patient does report that she is compliant with her medications but later states that she takes them "most of the time". She voices no acute concerns at this time. Review of Systems ROS Limitations: Poor Historian Except as stated in HPI: all other systems reviewed are Neg Past Family Social History Allergies: Coded Allergies: Iodinated Contrast- Oral and IV Dye (Verified Allergy, Unknown, 01/21/18) Past Medical History Hypertension Thyroid cancer status post radiation and thyroidectomy Rheumatoid arthritis Heart murmur Bipolar disorder Depression Fibromyalgia Past Surgical History Thyroidectomy Tonsillectomy Right breast lumpectomy Reported Medications Reported Meds & Active Scripts Active Cipro (Ciprofloxacin HCl) 500 Mg Tab 500 Mg PO BID 7 Days Reported Valsartan-Hydrochlorothiazide 320-25 Mg Tab 1 Tab PO DAILY Valsartan 80 Mg Tab 160 Mg PO BID Norvasc (Amlodipine Besylate) 5 Mg Tab 5 Mg PO DAILY Synthroid (Levothyroxine Sodium) 125 Mcg Tab 125 Mcg PO EVERY OTHER DAY Alternate with Synthroid 137mcg every other day Synthroid (Levothyroxine Sodium) 137 Mcg Tab 137 Mcg PO EVERY OTHER DAY Alternate with Synthroid 125mcg every other day Trazodone (Trazodone HCl) 150 Mg Tablet 150-300 Mg PO HS PRN Ativan (Lorazepam) 1 Mg Tab 1 Mg PO TID PRN Aspirin Adult Low Strength (Aspirin) 81 Mg Tabdr 81 Mg PO DAILY Active Ordered Medications Current Medications Medications (Trade) Dose Ordered Sig/Shayy Route Start Time Stop Time Status Last Admin (Tylenol) 650 mg Q4H PRN PO 01/22/18 10:00 (Milk Of Magnesia Liq) 30 ml DAILY PRN PO 01/22/18 10:00 (Mag-Al Plus Susp Liq) 30 ml Q6H PRN PO 01/22/18 10:00 (Norvasc) 5 mg DAILY PO 01/23/18 09:00 (Ecotrin Ec) 81 mg DAILY PO 01/23/18 09:00 (Depakote Dr) 500 mg BID PO 01/23/18 21:00 (Ativan) 0.5 mg Q6H PRN PO 01/23/18 12:45 (Ativan Inj) 0.5 mg Q6H PRN IM 01/23/18 12:45 (Ambien) 5 mg HS PRN PO 01/23/18 21:00 Family History Father: Cardiac history Social History Patient denies any tobacco, alcohol, or illicit drug use. Physical Exam Vital Signs Vital Signs Date Time Temp Pulse Resp B/P (MAP) Pulse Ox O2 Delivery O2 Flow Rate FiO2 01/23/18 05:52 97.7 101 18 155/86 (109) 97 01/22/18 14:09 97.5 78 16 142/81 (101) Physical Exam GENERAL: This is a well-nourished, well-developed patient, female, soft spoken in no acute distress. SKIN: No rashes, ecchymoses or lesions. Cool and dry. HEAD: Atraumatic. Normocephalic. No temporal or scalp tenderness. EYES: Pupils equal round and reactive. Extraocular motions intact. No scleral icterus. No injection or drainage. ENT: Nose without bleeding, purulent drainage. Throat without erythema. Uvula midline. Airway patent. NECK: Trachea midline. No JVD. Supple. Surgical scar noted. CARDIOVASCULAR: Regular rate and rhythm no gallops, or rubs. 2/6 murmur. RESPIRATORY: Clear to auscultation. Breath sounds equal bilaterally. No wheezes , rales, or rhonchi. GASTROINTESTINAL: Abdomen soft, non-tender, nondistended. No masses. No guarding. Hypoactive bowel sounds. MUSCULOSKELETAL: Extremities without clubbing, cyanosis, or edema. No joint tenderness, effusion, or edema noted. No calf tenderness. NEUROLOGICAL: Awake and alert, oriented 3. Cranial nerves II through XII intact. Motor and sensory grossly within normal limits. Five out of 5 muscle strength in all muscle groups. Speech is clear, slow, with frequent pausing. Difficulty with memory. Laboratory Laboratory Tests Test 01/23/18 06:44 White Blood Count 6.5 Red Blood Count 4.57 Hemoglobin 14.3 Hematocrit 41.4 Mean Corpuscular Volume 90.7 Mean Corpuscular Hemoglobin 31.2 Mean Corpuscular Hemoglobin Concent 34.4 Red Cell Distribution Width 14.4 Platelet Count 259 Mean Platelet Volume 10.5 Neutrophils (%) (Auto) 70.0 Lymphocytes (%) (Auto) 23.7 Monocytes (%) (Auto) 5.0 Eosinophils (%) (Auto) 0.7 Basophils (%) (Auto) 0.6 Neutrophils # (Auto) 4.6 Lymphocytes # (Auto) 1.5 Monocytes # (Auto) 0.3 Eosinophils # (Auto) 0.0 Basophils # (Auto) 0.0 CBC Comment DIFF FINAL Differential Comment Blood Urea Nitrogen 25 Creatinine 0.80 Random Glucose 93 Calcium Level 9.5 Sodium Level 138 Potassium Level 3.3 Chloride Level 101 Carbon Dioxide Level 20.9 Anion Gap 16 Estimat Glomerular Filtration Rate 71 Triglycerides Level 109 Cholesterol Level 156 LDL Cholesterol 100 HDL Cholesterol 34.6 Cholesterol/HDL Ratio 4.50 Date/Time Source Procedure Growth Status 01/21/18 15:00 Urine Random Urine Urine Culture - Final 50-100,000 CFU/ML MIXED RAFAEL... Complete Result Diagram: 01/23/1844 01/23/1844 Assessment and Plan Assessment and Plan 72-year-old female who reports a past medical history significant for hypertension, hypothyroidism following thyroidectomy due to cancer, rheumatoid arthritis, heart murmur, bipolar disorder, depression, and fibromyalgia who presented to the emergency department accompanied by her on 01/21 from patient's doctor's office. Patient had apparently had an 18 pound weight loss along with decreased appetite which prompted referral to the emergency department. [facility] has been consulted to assist with management of medical condition including possible UTI and status post thyroidectomy. Bipolar disorder/depression -Treatment plan per psychiatry, greatly appreciated. Pending cardiology clearance for antipsychotics due to borderline QTc - is serving as healthcare surrogate Suspected UTI -UA collected in the ED was positive for occult blood, leukocytes esterase, and bacteria. Culture grew 50-100,00 mixed rafael most likely contaminated -Patient is asymptomatic, CBC from today with no leukocytosis, patient has been afebrile -Was given one-time dose of Cipro in the ER, will hold off on antibiotics as patient is asymptomatic and culture was likely contaminated. Avoid fluoroquinolones due to borderline prolonged QTc Hypothyroidism - s/p thyroidectomy secondary to cancer -TSH 15.2, free T3 1.79, free T4 1.46 -Medication reconciliation with 2 different doses of levothyroxine, discussed with nurse calling patient's pharmacy her primary care physician to clarify dose -TSH elevated likely due to noncompliance with medications -We will resume Synthroid, check TSH in 6 weeks Hypertension, uncontrolled -Likely secondary to patient's noncompliance with medications at home -Medication reconciliation with conflicting doses of valsartan/ hydrochlorothiazide. Discussed with nurse verifying doses -For the moment we will continue patient's Norvasc 5 mg daily. -Of note patient refused medications today Constipation -Likely secondary to poor p.o. intake. Start stool softener, encourage hydration Weight loss -Possibly linked to bipolar depression leading to poor p.o. intake -Medication adjustments per psychiatry, encourage p.o. intake Hypokalemia -Potassium level 3.3, orders for KCl 20 meq's which patient has refused -Recheck labs tomorrow, if still refusing medications will need to replace electrolytes IV DVT prophylaxis-ambulation Thank you for this consultation, will continue to follow along. Discussed Condition With Nursing staff and patient. Lina Cintron Jan 23, 2018 11:00
--- NOTE | 2018-01-23 12:41 | PD.PSY.CON ---
Provisional Diagnosis Admission Date Jan 22, 2018 at 09:54 [place] I. 1. Bipolar disorder, currently depressed, severe without psychotic features Rule out component of depression secondary to thyroid derangement [place] II. Deferred History of Present Illness Service Psychiatry Consult Requested By Psychiatry Reason for Consult Second opinion Primary Care Physician Karina Harrison MD HPI Ms. Jones is a 72-year-old female with a history of bipolar disorder who was sent to the ED by primary care provider with out of concern for depression in self-care deficit. She was evaluated and placed under a Bailey act by the psychiatric nurse practitioner in the emergency department. Reviewing the electronic medical record, I note the patient was admitted under Dr. Escalante in 2006.Patient seen and examined with nurse. Chart reviewed. Case discussed with nursing staff. Patient has been refusing medications. I also see that there is notation of significant weight loss recently. Patient presents as delayed and psychomotor slowed. Speech is soft with increased speech latency. She appears somewhat fretful, anxious and dysphoric. She is a alexithymic with respect to mood but says that she has felt poorly for the last month or so. She says that her symptoms began after she tapered off steroids for management of a joint condition. She endorses poor sleep and poor appetite. I can elicit no hypomanic or manic symptoms presently. She denies any suicidal or homicidal ideation but seems unreliable to contract for safety. She denies any audiovisual hallucinations. I can elicit no jie delusional material. Remainder of the psychiatric ROS is negative. No acute physical complaints. The patient is a 72-year-old woman, domiciled with her and daughter, retired, with psychiatric history of bipolar disorder, previous psychiatric admissions, no suicidal attempts, brought to the hospital due to symptoms of depression and concerned regarding her self-care. She was consulted to me for second opinion. However, on my psychiatric evaluation the patient is poorly cooperative, without pronounced decreased speech production, flat affect, negativism, and oppositional behavior. The patient seems to be quite melancholic and objectively depressed. She does denies suicidal ideation , denies homicidal ideation, denies visual and auditory hallucinations. Past Family Social History Coded Allergies: Iodinated Contrast- Oral and IV Dye (Verified Allergy, Unknown, 01/21/18) Active Scripts Ciprofloxacin (Cipro) 500 Mg Tab, 500 MG PO BID for Infection for 7 Days, #14 TAB 0 Refills Prov:Pastor Matamoros MD 01/21/18 Reported Medications Valsartan-Hydrochlorothiazide (Valsartan-Hydrochlorothiazide) 320-25 Mg Tab, 1 TAB PO DAILY for Blood Pressure Management, #30 TAB 0 Refills 01/21/18 Valsartan (Valsartan) 80 Mg Tab, 160 MG PO BID, #60 TAB 0 Refills 01/21/18 Amlodipine (Norvasc) 5 Mg Tab, 5 MG PO DAILY for Blood Pressure Management, #30 TAB 0 Refills 01/21/18 Levothyroxine (Synthroid) 125 Mcg Tab, 125 MCG PO EVERY OTHER DAY for Thyroid, # 30 TAB 0 Refills Alternate with Synthroid 137mcg every other day 01/21/18 Levothyroxine (Synthroid) 137 Mcg Tab, 137 MCG PO EVERY OTHER DAY for Thyroid, # 30 TAB 0 Refills Alternate with Synthroid 125mcg every other day 01/21/18 Trazodone (Trazodone) 150 Mg Tablet, 150-300 MG PO HS Y for SLEEP, #30 TAB 0 Refills 01/21/18 Lorazepam (Ativan) 1 Mg Tab, 1 MG PO TID Y for ANXIETY, TAB 0 Refills 01/21/[address] (Aspirin Adult Low Strength) 81 Mg Tabdr, 81 MG PO DAILY, TAB 01/21/18 Current Medications Medications (Trade) Dose Ordered Sig/Shayy Route Start Time Stop Time Status Last Admin (Tylenol) 650 mg Q4H PRN PO 01/22/18 10:00 (Milk Of Magnesia Liq) 30 ml DAILY PRN PO 01/22/18 10:00 (Mag-Al Plus Susp Liq) 30 ml Q6H PRN PO 01/22/18 10:00 (Norvasc) 5 mg DAILY PO 01/23/18 09:00 (Ecotrin Ec) 81 mg DAILY PO 01/23/18 09:00 Patient's Strengths (min. 2) In a monitored setting. Verbally fluent. Physical Exam Vital Signs Vital Signs Date Time Temp Pulse Resp B/P (MAP) Pulse Ox O2 Delivery O2 Flow Rate FiO2 01/23/18 05:52 97.7 101 18 155/86 (109) 97 01/22/18 07:46 Nasal Cannula 2.00 I/O 01/23/18 01/23/18 01/24/18 08:00 16:00 00:00 Intake Total 120 ml Balance 120 ml Lab Results Test 01/23/18 06:44 White Blood Count 6.5 TH/MM3 Red Blood Count 4.57 MIL/MM3 Hemoglobin 14.3 GM/DL Hematocrit 41.4 % Mean Corpuscular Volume 90.7 FL Mean Corpuscular Hemoglobin 31.2 PG Mean Corpuscular Hemoglobin Concent 34.4 % Red Cell Distribution Width 14.4 % Platelet Count 259 TH/MM3 Mean Platelet Volume 10.5 FL Neutrophils (%) (Auto) 70.0 % Lymphocytes (%) (Auto) 23.7 % Monocytes (%) (Auto) 5.0 % Eosinophils (%) (Auto) 0.7 % Basophils (%) (Auto) 0.6 % Neutrophils # (Auto) 4.6 TH/MM3 Lymphocytes # (Auto) 1.5 TH/MM3 Monocytes # (Auto) 0.3 TH/MM3 Eosinophils # (Auto) 0.0 TH/MM3 Basophils # (Auto) 0.0 TH/MM3 CBC Comment DIFF FINAL Differential Comment Blood Urea Nitrogen 25 MG/DL Creatinine 0.80 MG/DL Random Glucose 93 MG/DL Calcium Level 9.5 MG/DL Sodium Level 138 MEQ/L Potassium Level 3.3 MEQ/L Chloride Level 101 MEQ/L Carbon Dioxide Level 20.9 MEQ/L Anion Gap 16 MEQ/L Estimat Glomerular Filtration Rate 71 ML/MIN Triglycerides Level 109 MG/DL Cholesterol Level 156 MG/DL LDL Cholesterol 100 MG/DL HDL Cholesterol 34.6 MG/DL Cholesterol/HDL Ratio 4.50 RATIO Date/Time Source Procedure Growth Status 01/21/18 15:00 Urine Random Urine Urine Culture - Final 50-100,000 CFU/ML MIXED BECKI... Complete Mental Status Examination Appearance: Appropriate Consciousness: Alert Orientation: x4 Motor Activity: Other (Extremely psychomotor slowed) Speech: Hesitant, Slow Language: Adequate Fund of Knowledge: Adequate Attention and Concentration: Inadequate Memory: Unremarkable (Grossly intact on clinical exam) Mood: Other (Alexithymic) Affect: Anxious, Other (Dysphoric) Thought Process & Associations: Other (Slowed) Thought Content: Appropriate Hallucination Type: None Delusion Type: None Suicidal Ideation: No (Unreliable to contract for safety) Suicidal Plan: No Suicidal Intention: No Homicidal Ideation: No Homicidal Plan: No Homicidal Intention: No Insight: Poor Judgment: Poor Assessment & Plan Problem List: (1) Bipolar disorder, current episode depressed, severe, without psychotic features ICD Codes: F31.4 - Bipolar disorder, current episode depressed, severe, without psychotic features Assessment & Plan: I have seen and examined this patient, reviewed documentation, I agree and concur with Dr. Hunter assessment and plan. Consult appreciated. Assessment & Plan Estimated LOS: Rubio Mancera MD Jan 23, 2018 12:41
[2018-01-23] MEDS ORDERED: LORazepam 2 MG/ML VIAL IM PRN (12:45)
[2018-01-23] MEDS ORDERED: LORazepam 0.5 MG TAB PO PRN (12:45)
--- NOTE | 2018-01-23 14:27 | PD.CONS ---
HPI Service cardiology Consult Requested By Reason for Consult prolonged QTc, clearance to start antipsychotic medication Primary Care Physician Karina Harrison MD History of Present Illness 72 yo WF with HTN, hypothyroidism and major depressive disorder who was admitted on 01/22/18 by Lynn hernandez in [facility] for concerns of depression and self care deficit. According to her chart she has not been taking medication or eating for several days with change in mental status. She has no prior cardiac history and we have been consulted due to borderline prolonged QTc on EKG; antipsychotic medications are being considered. She is currently taking ambien, ativan and depakote. EKG shows normal sinus rhythm with QTc 464ms with heart rate 71bpm. Currently patient is not a good historian and is primarily nonverbal but awake and alert. Review of Systems patient is nonverbal, but shakes her head when asked if she is in pain Past Family Social History Allergies: Coded Allergies: Iodinated Contrast- Oral and IV Dye (Verified Allergy, Unknown, 01/21/18) Past Medical History depression, hypothyroidism, HTN Past Surgical History none mentioned in chart Reported Medications Reported Meds & Active Scripts Active Cipro (Ciprofloxacin HCl) 500 Mg Tab 500 Mg PO BID 7 Days Reported Valsartan-Hydrochlorothiazide 320-25 Mg Tab 1 Tab PO DAILY Valsartan 80 Mg Tab 160 Mg PO BID Norvasc (Amlodipine Besylate) 5 Mg Tab 5 Mg PO DAILY Synthroid (Levothyroxine Sodium) 125 Mcg Tab 125 Mcg PO EVERY OTHER DAY Alternate with Synthroid 137mcg every other day Synthroid (Levothyroxine Sodium) 137 Mcg Tab 137 Mcg PO EVERY OTHER DAY Alternate with Synthroid 125mcg every other day Trazodone (Trazodone HCl) 150 Mg Tablet 150-300 Mg PO HS PRN Ativan (Lorazepam) 1 Mg Tab 1 Mg PO TID PRN Aspirin Adult Low Strength (Aspirin) 81 Mg Tabdr 81 Mg PO DAILY Active Ordered Medications Current Medications Medications (Trade) Dose Ordered Sig/Shayy Route Start Time Stop Time Status Last Admin (Tylenol) 650 mg Q4H PRN PO 01/22/18 10:00 (Milk Of Magnesia Liq) 30 ml DAILY PRN PO 01/22/18 10:00 (Mag-Al Plus Susp Liq) 30 ml Q6H PRN PO 01/22/18 10:00 (Norvasc) 5 mg DAILY PO 01/23/18 09:00 (Ecotrin Ec) 81 mg DAILY PO 01/23/18 09:00 (Depakote Dr) 500 mg BID PO 01/23/18 21:00 (Ativan) 0.5 mg Q6H PRN PO 01/23/18 12:45 (Ativan Inj) 0.5 mg Q6H PRN IM 01/23/18 12:45 (Ambien) 5 mg HS PRN PO 01/23/18 21:00 (Andreea-Colace) 1 tab DAILY PO 01/24/18 09:00 Family History non-contributory Social History no etoh, smoking or illicit drug use Physical Exam Vital Signs Vital Signs Date Time Temp Pulse Resp B/P (MAP) Pulse Ox O2 Delivery O2 Flow Rate FiO2 01/23/18 05:52 97.7 101 18 155/86 (109) 97 Physical Exam GENERAL: SKIN: Warm and dry. HEAD: Atraumatic. Normocephalic. EYES: Pupils equal and round. No scleral icterus. ENT: No nasal bleeding or discharge. NECK: Trachea midline. No JVD. CARDIOVASCULAR: Regular rate and rhythm. no murmurs RESPIRATORY: No accessory muscle use. Clear to auscultation. Breath sounds equal bilaterally. GASTROINTESTINAL: Abdomen soft, non-tender, nondistended. MUSCULOSKELETAL: Extremities without clubbing, cyanosis, or edema. NEUROLOGICAL: Awake and alert. nonverbal. PSYCHIATRIC: depressed affect Laboratory Laboratory Tests Test 01/23/18 06:44 White Blood Count 6.5 Red Blood Count 4.57 Hemoglobin 14.3 Hematocrit 41.4 Mean Corpuscular Volume 90.7 Mean Corpuscular Hemoglobin 31.2 Mean Corpuscular Hemoglobin Concent 34.4 Red Cell Distribution Width 14.4 Platelet Count 259 Mean Platelet Volume 10.5 Neutrophils (%) (Auto) 70.0 Lymphocytes (%) (Auto) 23.7 Monocytes (%) (Auto) 5.0 Eosinophils (%) (Auto) 0.7 Basophils (%) (Auto) 0.6 Neutrophils # (Auto) 4.6 Lymphocytes # (Auto) 1.5 Monocytes # (Auto) 0.3 Eosinophils # (Auto) 0.0 Basophils # (Auto) 0.0 CBC Comment DIFF FINAL Differential Comment Blood Urea Nitrogen 25 Creatinine 0.80 Random Glucose 93 Calcium Level 9.5 Sodium Level 138 Potassium Level 3.3 Chloride Level 101 Carbon Dioxide Level 20.9 Anion Gap 16 Estimat Glomerular Filtration Rate 71 Triglycerides Level 109 Cholesterol Level 156 LDL Cholesterol 100 HDL Cholesterol 34.6 Cholesterol/HDL Ratio 4.50 Date/Time Source Procedure Growth Status 01/21/18 15:00 Urine Random Urine Urine Culture - Final 50-100,000 CFU/ML MIXED BECKI... Complete Result Diagram: 01/23/1844 01/23/18643 Assessment and Plan Problem List: (1) Bipolar disorder current episode depressed ICD Codes: F31.30 - Bipolar disorder, current episode depressed, mild or moderate severity, unspecified Status: Acute Assessment and Plan 72 yo F with HTN, hypothyroidism and depression admitted by [facility] for bipolar depression and self care deficit. QTc is borderline prolonged on EKG, 445ms. Patient is cleared to start antipsychotic medications but will need to check EKG after 48 hours. If QTc <500ms ok to continue medications. Maintain electrolytes in normal range. Then EKG weekly while hospitalized. We will sign off call back if patient develops symptoms Debbie Myles Jan 23, 2018 14:27
[2018-01-23 15:46] LABS: HEMOGLOBIN A1C 5.3 % (4.3-6.0)
[2018-01-23 17:37] VITALS: BP 184/88; PULSE 75; RESP 18; TEMP 97.6; O2SAT 96
[2018-01-23 18:51] VITALS: BP 184/92; PULSE 75; RESP 18; TEMP 97.6; O2SAT 96
[2018-01-23] MEDS ORDERED: ZOLPIDEM TARTRATE 5 MG TAB PO PRN (21:00)
[2018-01-23] MEDS: DIVALPROEX DR 500 MG TABEC PO SCH (21:44)
[2018-01-23] MEDS ORDERED: amLODIPine BESYLATE 5 MG TAB PO ONE (21:45)
[2018-01-24 06:00] VITALS: BP 178/90; PULSE 87; RESP 16; TEMP 97.6; O2SAT 96
[2018-01-24] MEDS: amLODIPine BESYLATE 5 MG TAB PO SCH ×2 (08:34→09:00)
[2018-01-24] MEDS: DIVALPROEX DR 500 MG TABEC PO SCH ×2 (09:00→21:00)
[2018-01-24] MEDS: ASPIRIN EC 81 MG TABEC PO SCH (09:00)
[2018-01-24] MEDS: DOCUSATE SODIUM 50 MG/SENNA 8.6 MG TAB PO SCH (09:00)
--- NOTE | 2018-01-24 09:52 | HHI.PR ---
Subjective Remarks Follow-up visit for HTN, hypothyroidism, poor p.o intake and hypokalemia. Spoke with nurse who reports patient continues to refuse medications. She did manage to have meds yesterday with visiting and prompting. This morning has refused meds and labs, not eating breakfast, drinking little water. Patient is seen and examined in bed in no acute distress, she appears depressed, not making eye contact or speaking much. Will state no to pain or discomfort, does not offer much more information as to why she is not taking meds. Objective Vitals Vital Signs Date Time Temp Pulse Resp B/P (MAP) Pulse Ox O2 Delivery O2 Flow Rate FiO2 01/24/18 06:00 97.6 87 16 178/90 (119) 96 01/23/18 18:51 97.6 75 18 184/92 (122) 96 01/23/18 17:37 97.6 75 18 184/88 (120) 96 I/O 01/23/18 01/23/18 01/23/18 01/24/18 01/24/18 01/24/18 07:00 15:00 23:00 07:00 15:00 23:00 Intake Total 120 ml 340 ml 0 ml Balance 120 ml 340 ml 0 ml Intake Oral 120 ml 340 ml 0 ml # Voids 0 0 Result Diagram: 01/23/1864301/23/18643 Objective Remarks GENERAL: This is a well-nourished, well-developed patient, female, making little eye contact and withdrawn. SKIN: Cool and dry. HEAD: Atraumatic. Normocephalic. EYES: Pupils equal round. No scleral icterus. No injection or drainage. ENT: Nose without bleeding, purulent drainage. Airway patent. NECK: Trachea midline. No JVD. CARDIOVASCULAR: Regular rate and rhythm no gallops, or rubs. 2/6 murmur. RESPIRATORY: Clear to auscultation. Breath sounds equal bilaterally. No wheezes , rales, or rhonchi. GASTROINTESTINAL: Abdomen soft, non-tender, nondistended. No masses. No guarding. Hypoactive bowel sounds. MUSCULOSKELETAL: Extremities without clubbing, cyanosis, or edema. NEUROLOGICAL: Awake and alert. Cranial nerves II through XII grossly intact. Motor and sensory grossly within normal limits. Speech is clear, slow, with frequent pausing. A/P Assessment and Plan 72-year-old female who reports a past medical history significant for hypertension, hypothyroidism following thyroidectomy due to cancer, rheumatoid arthritis, heart murmur, bipolar disorder, depression, and fibromyalgia who presented to the emergency department accompanied by her on 01/21 from patient's doctor's office. Patient had apparently had an 18 pound weight loss along with decreased appetite which prompted referral to the emergency department. [facility] has been consulted to assist with management of medical condition including possible UTI and status post thyroidectomy. Bipolar disorder/depression -Treatment plan per psychiatry, greatly appreciated. Cardiology has cleared for antipsychotics with followup EKG to evaluate QTc - is serving as healthcare surrogate Suspected UTI -UA collected in the ED was positive for occult blood, leukocytes esterase, and bacteria. Culture grew 50-100,00 mixed rafael most likely contaminated -Patient is asymptomatic, CBC with no leukocytosis, patient has been afebrile -Was given one-time dose of Cipro in the ER,culture was likely contaminated. Avoid fluoroquinolones due to borderline prolonged QTc - psychiatric cns reports foul smelling urine. Will repeat UA and start PO Ceftin. Hypothyroidism - s/p thyroidectomy secondary to cancer -TSH 15.2, free T3 1.79, free T4 1.46 -Medication reconciliation with 2 different doses of levothyroxine, order once again placed for nurse to call pharmacy to med. rec -TSH elevated likely due to noncompliance with medications -We will resume Synthroid, check TSH in 6 weeks Hypertension, uncontrolled -Likely secondary to patient's noncompliance with medications at home -Medication reconciliation with conflicting doses of valsartan/ hydrochlorothiazide. Med. rec to be corrected. -Patient refusing p.o medications, will order clonidine patch Constipation -Likely secondary to poor p.o. intake. Continue stool softener, encourage hydration Weight loss Poor p.o intake -Possibly linked to bipolar depression leading to poor p.o. intake -Medication adjustments per psychiatry, cleared by cardiology to start psychotropics. -Refusing labs and little po intake, unable to hold her down for labs, will start NS @84ml/hr. to assist with medication compliance. Hypokalemia -Potassium level 3.3, orders for KCl 20 meq's, but pt refusing. - Unable to hold down for labs, orders of 20meq's KCL IV. order for labs tomorrow. DVT prophylaxis-ambulation Discussed with patient, nurse and psychiatric cns. Lina Cintron Jan 24, 2018 09:52
[2018-01-24] MEDS ORDERED: cloNIDine HCL 0.1 MG/24 HR PATCH T-DERMAL SCH (12:00)
[2018-01-24] MEDS ORDERED: POTASSIUM CHLOR 20 MEQ PREMIX 100 ML IV ONE (13:15)
[2018-01-24] MEDS: SODIUM CHLOR 0.9% 1000 ML INJ 1,000 ML IV SCH (13:15)
[2018-01-24] MEDS ORDERED: ZIPRASIDONE MESYLATE 20 MG VIAL IM ONE (14:30)
[2018-01-24] MEDS: ZIPRASIDONE HCL 40 MG CAP PO SCH (18:00)
[2018-01-24 18:04] VITALS: BP 118/70; PULSE 75; RESP 16; TEMP 97.3; O2SAT 95
[2018-01-24] MEDS: ZIPRASIDONE MESYLATE 20 MG VIAL IM PRN (18:07)
--- NOTE | 2018-01-24 18:18 | HHI.PYPN ---
Subjective Chief Complaint: Depression, self-care deficit Remarks Reviewed electronic medical record and discussed case with staff. Nurse reports that the patient has been refusing her medications intermittently. Additionally, she is refusing to allow labs to be drawn and IV to be started. She has not eaten or had anything to drink so far today. Reviewed records and found that cardiology had cleared patient for antipsychotics. Consulted with Dr. Morrison. Patient will be started on Geodon 40 mg p.o./10 milligrams IM if refuses p.o. at patient's bedside and signed consent. Patient refusing to answer questions during follow-up. However, she was able to advise that it is 2018 and she realizes she is at [facility]. Repeat EKG ordered for January 26 per cardiology's suggestion. Mental Status Examination Appearance: Appropriate Consciousness: Alert Orientation: x4 Motor Activity: Other (Extremely psychomotor slowed) Speech: Hesitant, Slow Language: Adequate Fund of Knowledge: Adequate Attention and Concentration: Inadequate Memory: Unremarkable (Grossly intact on clinical exam) Mood: Other (Alexithymic) Affect: Anxious, Other (Dysphoric) Thought Process & Associations: Other (Slowed) Thought Content: Appropriate Hallucination Type: None Delusion Type: None Suicidal Ideation: No (Unreliable to contract for safety) Suicidal Plan: No Suicidal Intention: No Homicidal Ideation: No Homicidal Plan: No Homicidal Intention: No Insight: Poor Judgment: Poor Results Labs Date/Time Source Procedure Growth Status 01/21/18 15:00 Urine Random Urine Urine Culture - Final 50-100,000 CFU/ML MIXED BECKI... Complete Vitals/IOs Vital Signs Date Time Temp Pulse Resp B/P (MAP) Pulse Ox O2 Delivery O2 Flow Rate FiO2 01/24/18 18:04 97.3 75 16 118/70 (86) 95 01/22/18 07:46 Nasal Cannula 2.00 Intake and Output 01/24/18 01/24/18 01/25/18 08:00 16:00 00:00 Intake Total 0 ml 0 ml Balance 0 ml 0 ml Assessment & Plan Problem List: (1) Bipolar disorder, current episode depressed, severe, without psychotic features ICD Codes: F31.4 - Bipolar disorder, current episode depressed, severe, without psychotic features Assessment & Plan Estimated LOS: Continue with treatment current treatment plan. There has been no improvement at this time in patient's condition. Hopeful that after couple of injections of the antipsychotic patient will become compliant with plan. Once she is agreeable to care she will also be treated for her UTI. Days Justification for Cont. Inpt. This patient would decompensate if moved to a lower level of care. Request HC Surrog/Guard Advoc?: Yes Maral Hidalgo Jan 24, 2018 18:18
[2018-01-24] MEDS: HEPARIN SODIUM - SQ 10,000 UNITS/ML VIAL SQ SCH (21:00)
[2018-01-24] MEDS: CEFUROXIME AXETIL 250 MG TAB PO SCH (21:00)
[2018-01-25 06:31] VITALS: BP 158/81; PULSE 62; RESP 16; TEMP 97.7; O2SAT 96
[2018-01-25] MEDS: ZIPRASIDONE HCL 40 MG CAP PO SCH ×2 (08:19→17:53)
[2018-01-25] MEDS: DIVALPROEX DR 500 MG TABEC PO SCH ×2 (08:19→21:00)
[2018-01-25] MEDS: ASPIRIN EC 81 MG TABEC PO SCH (08:19)
[2018-01-25] MEDS: DOCUSATE SODIUM 50 MG/SENNA 8.6 MG TAB PO SCH (08:19)
[2018-01-25] MEDS: CEFUROXIME AXETIL 250 MG TAB PO SCH ×2 (08:19→21:00)
[2018-01-25] MEDS: HEPARIN SODIUM - SQ 10,000 UNITS/ML VIAL SQ SCH ×2 (08:19→21:00)
[2018-01-25] MEDS: ZIPRASIDONE MESYLATE 20 MG VIAL IM PRN ×2 (08:22→17:53)
--- NOTE | 2018-01-25 11:09 | HHI.PR ---
Subjective Remarks Follow up for poor oral intake, hypertension, hypokalemia. The patient is awake , alert, oriented to person, [facility], January 2018. She denies any specific medical complaints. She continues to refuse medications, patient states "I just don't feel like it". Denies any abdominal pain, nausea/vomiting, or diarrhea. She says she is having normal BMs. The patient is very brief with conversation and difficult to obtain information. Discussed with RN, patient continues to refuse medications and food. Objective Vitals Vital Signs Date Time Temp Pulse Resp B/P (MAP) Pulse Ox O2 Delivery O2 Flow Rate FiO2 01/25/18 06:31 97.7 62 16 158/81 (106) 96 01/24/18 18:04 97.3 75 16 118/70 (86) 95 I/O 01/24/18 01/24/18 01/24/18 01/25/18 01/25/18 01/25/18 07:00 15:00 23:00 07:00 15:00 23:00 Intake Total 0 ml 0 ml 0 ml 0 ml Balance 0 ml 0 ml 0 ml 0 ml Intake Oral 0 ml 0 ml 0 ml 0 ml # Voids 0 0 0 Result Diagram: 01/23/1844 01/23/18643 Objective Remarks GENERAL: Well-nourished, well-developed elderly female patient in [facility]. SKIN: Warm and dry. No rash. HEENT: Normocephalic. Atraumatic. Pupils equal and round. Mucous membranes pink and moist. NECK: Supple. Trachea midline. CARDIOVASCULAR: Regular rate and rhythm. 3/6 systolic ejection murmur noted. RESPIRATORY: No accessory muscle use. Clear to auscultation. Breath sounds equal bilaterally. GASTROINTESTINAL: Abdomen soft, non-tender, nondistended. Normoactive bowel sounds x4. MUSCULOSKELETAL: No obvious deformities. Extremities without clubbing, cyanosis , or edema. NEUROLOGICAL: Awake and alert. No obvious cranial nerve deficits. Motor grossly within normal limits. Moving all extremities spontaneously. Normal speech. Short with conversation, frequent pausing. Medications and IVs Current Medications Medications (Trade) Dose Ordered Sig/Shayy Route Start Time Stop Time Status Last Admin (Tylenol) 650 mg Q4H PRN PO 01/22/18 10:00 (Milk Of Magnesia Liq) 30 ml DAILY PRN PO 01/22/18 10:00 (Mag-Al Plus Susp Liq) 30 ml Q6H PRN PO 01/22/18 10:00 (Norvasc) 5 mg DAILY PO 01/23/18 09:00 Future Hold (Ecotrin Ec) 81 mg DAILY PO 01/23/18 09:00 (Depakote Dr) 500 mg BID PO 01/23/18 21:00 01/23/18 21:44 (Ativan) 0.5 mg Q6H PRN PO 01/23/18 12:45 (Ativan Inj) 0.5 mg Q6H PRN IM 01/23/18 12:45 (Ambien) 5 mg HS PRN PO 01/23/18 21:00 (Andreea-Colace) 1 tab DAILY PO 01/24/18 09:00 (Catapres-Tts 0.1mg Patch.7d) 1 patch Q7D T-DERMAL 01/24/18 12:00 01/24/18 14:14 Miscellaneous Information 1 Q7D T-DERMAL 01/31/18 09:00 (Heparin Inj) 5,000 units Q12HR SQ 01/24/18 21:00 (Synthroid) 125 mcg Q48H PO 01/26/18 06:00 (Ceftin) 250 mg Q12HR PO 01/24/18 21:00 Sodium Chloride 1,000 ml @ 84 mls/hr [id number] IV 01/24/18 13:15 (Geodon) 40 mg BIDPC PO 01/24/18 18:00 (Geodon Inj) 10 mg Q12H PRN IM 01/24/18 14:15 01/25/18 08:22 A/P Assessment and Plan 72-year-old female who reports a past medical history significant for hypertension, hypothyroidism following thyroidectomy due to cancer, rheumatoid arthritis, heart murmur, bipolar disorder, depression, and fibromyalgia who presented to the emergency department accompanied by her on 01/21 from patient's doctor's office. Patient had apparently had an 18 pound weight loss along with decreased appetite which prompted referral to the emergency department. [facility] has been consulted to assist with management of medical condition including possible UTI and status post thyroidectomy. Bipolar disorder/depression -Continue treatment plan per psychiatry -Cardiology has cleared for antipsychotics with followup EKG to evaluate QTc - is serving as healthcare surrogate Suspected UTI -UA collected in the ED was positive for occult blood, leukocytes esterase, and bacteria. Culture grew 50-100,00 mixed rafael most likely contaminated -Was given one-time dose of Cipro in the ER,culture was likely contaminated. Avoid fluoroquinolones due to borderline prolonged QTc -school psychological examiner reports foul smelling urine. Repeat UA and start PO Ceftin for now Hypothyroidism -s/p thyroidectomy secondary to cancer -TSH 15.2, free T3 1.79, free T4 1.46 -TSH elevated likely due to noncompliance with medications -Resume Synthroid, check repeat TSH/T4 in 6 weeks Hypertension, uncontrolled -Likely secondary to patient's noncompliance with medications at home -Medication reconciliation with conflicting doses of valsartan/ hydrochlorothiazide. Med. rec to be corrected. -Patient refusing p.o medications, clonidine patch ordered Constipation -Likely secondary to poor p.o. intake in combination with dehydration -Continue stool softener, encourage oral hydration Weight loss, Poor oral intake -Possibly linked to bipolar depression leading to poor p.o. intake -Medication adjustments per psychiatry -Refusing labs and little po intake, unable to hold her down for labs, will start NS @84ml/hr. -Encourage to assist with medication compliance. Hypokalemia -Potassium level 3.3, orders for KCl 20 meq's, but pt refusing. -Unable to hold down for labs, orders of 20meq's KCL IV. -Repeat labs DVT prophylaxis-ambulation Olga Charles PA-C Jan 25, 2018 11:09 am
[2018-01-25] MEDS: SODIUM CHLOR 0.9% 1000 ML INJ 1,000 ML IV SCH (12:45)
--- NOTE | 2018-01-25 15:58 | HHI.PYPN ---
Subjective Chief Complaint: Depression, self-care deficit Remarks Patient was seen today for psychiatric reevaluation. The case was discussed with nursing charge. On my psychiatric evaluation the patient is agreeable, very somatically preoccupied, stating that she has not gone to the bathroom in 3 days, she feels constipated. She denies suicidal and homicidal ideation, she denies visual and auditory hallucinations. She is compliant with her medications, no significant side effects. As per nurse the patient has been complaining of GI symptoms over and over, but she has been seen going to the bathroom in the last 24 hours Mental Status Examination Appearance: Appropriate Consciousness: Alert Orientation: x4 Motor Activity: Other (Extremely psychomotor slowed) Speech: Hesitant, Slow Language: Adequate Fund of Knowledge: Adequate Attention and Concentration: Inadequate Memory: Unremarkable (Grossly intact on clinical exam) Mood: Other (Alexithymic) Affect: Anxious, Other (Dysphoric) Thought Process & Associations: Other (Slowed) Thought Content: Appropriate Hallucination Type: None Delusion Type: None Suicidal Ideation: No (Unreliable to contract for safety) Suicidal Plan: No Suicidal Intention: No Homicidal Ideation: No Homicidal Plan: No Homicidal Intention: No Insight: Poor Judgment: Poor Results Labs Date/Time Source Procedure Growth Status 01/21/18 15:00 Urine Random Urine Urine Culture - Final 50-100,000 CFU/ML MIXED BECKI... Complete Vitals/IOs Vital Signs Date Time Temp Pulse Resp B/P (MAP) Pulse Ox O2 Delivery O2 Flow Rate FiO2 01/25/18 06:31 97.7 62 16 158/81 (106) 96 01/22/18 07:46 Nasal Cannula 2.00 Intake and Output 01/25/18 01/25/18 01/26/18 08:00 16:00 00:00 Intake Total 0 ml Balance 0 ml Assessment & Plan Problem List: (1) Bipolar disorder, current episode depressed, severe, without psychotic features ICD Codes: F31.4 - Bipolar disorder, current episode depressed, severe, without psychotic features Assessment & Plan Estimated LOS: days Justification for Cont. Inpt. Patient is acutely psychotic, she needs to continue psychiatric hospitalization for stabilization. Continue current psychotropic regimen Request HC Surrog/Guard Advoc?: Yes Rubio Mancera MD Jan 25, 2018 15:58
[2018-01-25 18:08] VITALS: BP 140/76; PULSE 66; RESP 16; TEMP 97.7; O2SAT 95
[2018-01-26] MEDS: SODIUM CHLOR 0.9% 1000 ML INJ 1,000 ML IV SCH (01:00)
[2018-01-26 05:14] VITALS: BP 177/77; PULSE 54; RESP 15; TEMP 97.8; O2SAT 98
[2018-01-26] MEDS: LEVOTHYROXINE SODIUM 125 MCG TAB PO SCH (06:00)
[2018-01-26 06:36] VITALS: BP 155/83
[2018-01-26] MEDS: CEFUROXIME AXETIL 250 MG TAB PO SCH ×3 (08:51→20:17)
[2018-01-26] MEDS: ASPIRIN EC 81 MG TABEC PO SCH ×2 (08:51→09:00)
[2018-01-26] MEDS: ZIPRASIDONE HCL 40 MG CAP PO SCH ×3 (08:51→18:00)
[2018-01-26] MEDS: DIVALPROEX DR 500 MG TABEC PO SCH ×3 (08:51→20:17)
[2018-01-26] MEDS: DOCUSATE SODIUM 50 MG/SENNA 8.6 MG TAB PO SCH ×2 (08:52→09:00)
[2018-01-26] MEDS: HEPARIN SODIUM - SQ 10,000 UNITS/ML VIAL SQ SCH ×3 (08:52→20:20)
[2018-01-26] MEDS: D5-1/2 NS + KCL 20 MEQ INJ 1,000 ML IV SCH ×2 (11:10→19:20)
--- NOTE | 2018-01-26 11:19 | HHI.PR ---
Subjective Remarks Follow up for poor oral intake, hypertension, possible UTI. The patient is seen lying in bed, oriented 3. She denies any specific medical complaints. RN reports patient continues to refuse any labs or medications. Patient is very dry on exam, encouraged oral hydration. Discussed with RN to collect repeat urinalysis. Objective Vitals Vital Signs Date Time Temp Pulse Resp B/P (MAP) Pulse Ox O2 Delivery O2 Flow Rate FiO2 01/26/18 06:36 155/83 (107) 01/26/18 05:14 97.8 54 15 177/77 (110) 98 01/25/18 18:08 97.7 66 16 140/76 (97) 95 I/O 01/25/18 01/25/18 01/25/18 01/26/18 01/26/18 01/26/18 07:00 15:00 23:00 07:00 15:00 23:00 Intake Total 0 ml 60 ml 0 ml Balance 0 ml 60 ml 0 ml Intake Oral 0 ml 60 ml 0 ml # Voids 0 0 Result Diagram: 01/23/1864301/23/1844 Objective Remarks GENERAL: Well-nourished, well-developed elderly female patient in [facility]. SKIN: Warm and dry. No rash. HEENT: Normocephalic. Atraumatic. Pupils equal and round. Mucous membranes very dry. NECK: Supple. Trachea midline. CARDIOVASCULAR: Regular rate and rhythm. 3/6 systolic ejection murmur noted. RESPIRATORY: No accessory muscle use. Clear to auscultation. Breath sounds equal bilaterally. GASTROINTESTINAL: Abdomen soft, non-tender, nondistended. Normoactive bowel sounds x4. MUSCULOSKELETAL: No obvious deformities. Extremities without clubbing, cyanosis , or edema. NEUROLOGICAL: Awake and alert. No obvious cranial nerve deficits. Motor grossly within normal limits. Moving all extremities spontaneously. Normal speech. Soft-spoken, short with conversation, frequent pausing. Medications and IVs Current Medications Medications (Trade) Dose Ordered Sig/Shayy Route Start Time Stop Time Status Last Admin (Tylenol) 650 mg Q4H PRN PO 01/22/18 10:00 (Milk Of Magnesia Liq) 30 ml DAILY PRN PO 01/22/18 10:00 (Mag-Al Plus Susp Liq) 30 ml Q6H PRN PO 6/14/18 10:00 (Norvasc) 5 mg DAILY PO 01/23/18 09:00 Future Hold (Ecotrin Ec) 81 mg DAILY PO 01/23/18 09:00 01/26/18 08:51 (Depakote Dr) 500 mg BID PO 01/23/18 21:00 01/26/18 08:51 (Ativan) 0.5 mg Q6H PRN PO 01/23/18 12:45 (Ativan Inj) 0.5 mg Q6H PRN IM 01/23/18 12:45 (Ambien) 5 mg HS PRN PO 01/23/18 21:00 (Andreea-Colace) 1 tab DAILY PO 01/24/18 09:00 01/26/18 08:52 (Catapres-Tts 0.1mg Patch.7d) 1 patch Q7D T-DERMAL 01/24/18 12:00 01/24/18 14:14 Miscellaneous Information 1 Q7D T-DERMAL 01/31/18 09:00 (Heparin Inj) 5,000 units Q12HR SQ 01/24/18 21:00 01/26/18 08:52 (Synthroid) 125 mcg Q48H PO 01/26/18 06:00 (Ceftin) 250 mg Q12HR PO 01/24/18 21:00 01/26/18 08:51 Sodium Chloride 1,000 ml @ 84 mls/hr [id number] IV 01/24/18 13:15 (Geodon) 40 mg BIDPC PO 01/24/18 18:00 01/26/18 08:51 (Geodon Inj) 10 mg Q12H PRN IM 01/24/18 14:15 01/25/18 17:53 A/P Assessment and Plan 72-year-old female who reports a past medical history significant for hypertension, hypothyroidism following thyroidectomy due to cancer, rheumatoid arthritis, heart murmur, bipolar disorder, depression, and fibromyalgia who presented to the emergency department accompanied by her on 01/21 from patient's doctor's office. Patient had apparently had an 18 pound weight loss along with decreased appetite which prompted referral to the emergency department. [facility] has been consulted to assist with management of medical condition including possible UTI and status post thyroidectomy. Bipolar disorder/depression -Continue treatment plan per psychiatry -Cardiology has cleared for antipsychotics with followup EKG to evaluate QTc - is serving as healthcare surrogate Suspected UTI -UA collected in the ED was positive for occult blood, leukocytes esterase, and bacteria. Culture grew 50-100,00 mixed rafael most likely contaminated -Was given one-time dose of Cipro in the ER,culture was likely contaminated. Avoid fluoroquinolones due to borderline prolonged QTc -psychological operations officer reports foul smelling urine. Repeat UA still pending, discussed with RN to collect, continue on PO Ceftin for now, if still refusing, consider IV rocephin Hypothyroidism -s/p thyroidectomy secondary to cancer -TSH 15.2, free T3 1.79, free T4 1.46 -TSH elevated likely due to noncompliance with medications -Resume Synthroid, check repeat TSH/T4 in 6 weeks Hypertension, uncontrolled -Likely secondary to patient's noncompliance with medications at home -Patient refusing p.o medications, clonidine patch ordered Constipation -Likely secondary to poor p.o. intake in combination with dehydration -Continue stool softener, encourage oral hydration Weight loss, Poor oral intake -Possibly linked to bipolar depression leading to poor p.o. intake -Medication adjustments per psychiatry -Refusing labs and little po intake, unable to hold her down for labs, will start IVF with D5 1/2 NS +KCl -Encourage to assist with medication compliance. -Special Education Math Teacher consult Hypokalemia -Potassium level 3.3, orders for KCl 20 meq's, but pt refusing. -Unable to hold down for labs, orders of 20meq's KCL IV. -Repeat labs DVT prophylaxis-ambulation Discharge Planning Needs UA to be collected and IVF hydration to be started. Patient very dry on exam and at risk of severe dehydration with minimal oral intake. Discussed with RN to consider restraints for IVF administration if patient still refusing oral intake. Olga Charles PA-C Jan 26, 2018 11:19 am
[2018-01-26 13:58] LABS: BICARBONATE 23.8 MEQ/L (21.0-32.0); CALCIUM 10.1 MG/DL (8.5-10.1); CREATININE 0.71 MG/DL (0.50-1.00)
[2018-01-26 18:00] VITALS: BP 169/97; PULSE 79; TEMP 97.8; O2SAT 95
[2018-01-26] MEDS: ZIPRASIDONE MESYLATE 20 MG VIAL IM PRN (19:11)
[2018-01-26 19:18] LABS: BILIRUBIN, URINE NEG (NEG); BLOOD, URINE SMALL (NEG); GLUCOSE,URINE NEG (NEG); HYALINE CAST, URINE 5 /lpf (RARE); KETONE, URINE 20 mg/dL (NEG); MUCUS URINE MANY /lpf (OCC); NITRITE,URINE NEG (NEG); URINE COLOR Amber (YELLW/STRAW); URINE LEUKOCYTE ESTERASE NEG (NEG)
--- NOTE | 2018-01-26 20:43 | HHI.PYPN ---
Subjective Chief Complaint: Depression, self-care deficit Remarks Reviewed electronic medical record discussed case with staff. Follow-up was conducted in patient's room. Patient alert and oriented sitting on her bed. She is allowed the nurse to place an IV and is receiving IV fluids. She complied with p.o. medication this evening. Her mood is still sad and her affect is still blunted. However, she was able to carry on a conversation and related to me he family demographics as well as a basic understanding of her situation. She reports that she stopped eating and drinking because "I just did not feel like it". Discussed with her that result of these actions given a long enough course would be . She states she understands and denies that this was her intent. She does relay that she had a previous episode of depression "many years ago". Overall, her symptoms do seem to be showing some improvement. Reviewed her EKG which shows her QT interval at 0.467. We will continue with current therapy. Mental Status Examination Appearance: Appropriate Consciousness: Alert Orientation: x4 Motor Activity: Other (Extremely psychomotor slowed) Speech: Hesitant, Slow Language: Adequate Fund of Knowledge: Adequate Attention and Concentration: Inadequate Memory: Unremarkable (Grossly intact on clinical exam) Mood: Other (Alexithymic) Affect: Anxious, Other (Dysphoric) Thought Process & Associations: Other (Slowed) Thought Content: Appropriate Hallucination Type: None Delusion Type: None Suicidal Ideation: No (Unreliable to contract for safety) Suicidal Plan: No Suicidal Intention: No Homicidal Ideation: No Homicidal Plan: No Homicidal Intention: No Insight: Poor Judgment: Poor Results Labs Test 01/26/18 13:20 01/26/18 17:43 Blood Urea Nitrogen 25 MG/DL Creatinine 0.71 MG/DL Random Glucose 102 MG/DL Calcium Level 10.1 MG/DL Sodium Level 141 MEQ/L Potassium Level 3.4 MEQ/L Chloride Level 103 MEQ/L Carbon Dioxide Level 23.8 MEQ/L Anion Gap 14 MEQ/L Estimat Glomerular Filtration Rate 81 ML/MIN Urine Color Katalina Urine Turbidity HAZY Urine pH 6.0 Urine Specific [place] 1.026 Urine Protein 30 mg/dL Urine Glucose (UA) NEG mg/dL Urine Ketones 20 mg/dL Urine Occult Blood SMALL Urine Nitrite NEG Urine Bilirubin NEG Urine Urobilinogen 4.0 OR GREATER mg/dL Urine Leukocyte Esterase NEG Urine RBC 23 /hpf Urine WBC 5 /hpf Urine Hyaline Casts 5 /lpf Urine Mucus MANY /lpf Microscopic Urinalysis Comment CULT NOT INDICATED Date/Time Source Procedure Growth Status 01/21/18 15:00 Urine Random Urine Urine Culture - Final 50-100,000 CFU/ML MIXED BECKI... Complete Vitals/IOs Vital Signs Date Time Temp Pulse Resp B/P (MAP) Pulse Ox O2 Delivery O2 Flow Rate FiO2 01/26/18 18:00 97.8 79 169/97 (121) 95 01/26/18 05:14 15 01/22/18 07:46 Nasal Cannula 2.00 Intake and Output 01/26/18 01/26/18 01/27/18 08:00 16:00 00:00 Intake Total 0 ml 0 ml Output Total 450 ml Balance 0 ml 0 ml -450 ml Assessment & Plan Problem List: (1) Bipolar disorder, current episode depressed, severe, without psychotic features ICD Codes: F31.4 - Bipolar disorder, current episode depressed, severe, without psychotic features Assessment & Plan Estimated LOS: Patient has only recently begun showing some slight improvement in her symptoms. She still refuses to eat or drink. We will continue current treatment plan with possible titration of medication to continue stabilization. Discharge will be dependent upon her response to the medication. Justification for Cont. Inpt. Removing this patient to a lower level of care would likely result in decompensation. She continues to refuse to eat or drink. And her symptoms have only started to slightly laura. Request HC Surrog/Guard Advoc?: Yes Maral Hidalgo Jan 26, 2018 20:43
--- NOTE | 2018-01-26 22:59 | EKG ---
Date Performed: 01/26/2018 Time Performed: 05:26:40 PTAGE: 72 years EKG: SINUS BRADYCARDIA WITH FIRST DEGREE AV BLOCK MARKED LEFT AXIS DEVIATION MODERATE INTRAVENTR ICULAR CONDUCTION DELAY ST DEVIATION AND MODERATE T-WAVE ABNORMALITY, CONSIDER ANTEROLATERAL ISCHEMIA ABNORMAL ECG PREVIOUS TRACING : 01/21/2018 13.28 DOCTOR: Jonny Baugh Interpretating Date/Time 01/26/2018 22:53:41
[2018-01-27 05:43] VITALS: BP 167/69; PULSE 53; RESP 15; TEMP 97.1; O2SAT 97
[2018-01-27] MEDS: D5-1/2 NS + KCL 20 MEQ INJ 1,000 ML IV SCH (05:49)
[2018-01-27] MEDS: ASPIRIN EC 81 MG TABEC PO SCH (09:07)
[2018-01-27] MEDS: DIVALPROEX DR 500 MG TABEC PO SCH ×2 (09:07→21:08)
[2018-01-27] MEDS: DOCUSATE SODIUM 50 MG/SENNA 8.6 MG TAB PO SCH (09:07)
[2018-01-27] MEDS: ZIPRASIDONE HCL 40 MG CAP PO SCH ×2 (09:07→18:00)
[2018-01-27] MEDS: CEFUROXIME AXETIL 250 MG TAB PO SCH ×2 (09:07→21:07)
[2018-01-27] MEDS: HEPARIN SODIUM - SQ 10,000 UNITS/ML VIAL SQ SCH ×2 (09:08→21:00)
[2018-01-27 10:06] LABS: BASOPHIL % 0.6 % (0.0-2.0); EOSINOPHIL % 0.7 % (0.0-4.0); HEMATOCRIT 39.6 % (35.0-46.0); HEMOGLOBIN 13.4 GM/DL (11.6-15.3); LYMPH % 17.6 % (9.0-44.0); LYMPHOCYTE # 0.9 TH/MM3 (1.0-4.8); MEAN CELL VOLUME 90.7 FL (80.0-100.0); MEAN CORPUSCULAR HEMOGLOBIN 30.8 PG (27.0-34.0); MEAN CORPUSCULAR HGB CONC 33.9 % (32.0-36.0); MONO % 5.1 % (0.0-8.0); MONOCYTE # 0.3 TH/MM3 (0-0.9); PLATELET COUNT 197 TH/MM3 (150-450); RED BLOOD COUNT 4.37 MIL/MM3 (4.00-5.30); RED CELL DISTRIBUTION WIDTH 14.2 % (11.6-17.2); WHITE BLOOD COUNT 5.3 TH/MM3 (4.0-11.0)
[2018-01-27 10:33] LABS: BICARBONATE 26.4 MEQ/L (21.0-32.0); CALCIUM 9.1 MG/DL (8.5-10.1); CREATININE 0.59 MG/DL (0.50-1.00); MAGNESIUM 2.4 MG/DL (1.5-2.5)
--- NOTE | 2018-01-27 14:22 | HHI.PR ---
Subjective Remarks Follow-up on patient with hypertension, poor oral intake, possible UTI. Patient seen and examined. Patient states she feels okay today. She denies any specific medical complaints. She denies any fever or chills. Denies any dizziness, lightheadedness or palpitations. She denies any chest pain or shortness of breath. She denies any nausea, vomiting or abdominal pain. She denies any urinary difficulties, diarrhea or constipation. She is eating about 30% of her meals. Discussed with RN, no acute events noted. Objective Vitals Vital Signs Date Time Temp Pulse Resp B/P (MAP) Pulse Ox O2 Delivery O2 Flow Rate FiO2 01/27/18 05:43 97.1 53 15 167/69 (101) 97 01/26/18 18:00 97.8 79 169/97 (121) 95 I/O 01/26/18 01/26/18 01/26/18 01/27/18 01/27/18 01/27/18 07:00 15:00 23:00 07:00 15:00 23:00 Intake Total 0 ml 0 ml 0 ml Output Total 450 ml Balance 0 ml 0 ml -450 ml 0 ml Intake Oral 0 ml 0 ml 0 ml Output Urine Total 450 ml # Voids 0 1 Result Diagram: 01/27/18 0954 01/27/18 0954 Objective Remarks GENERAL: Well-nourished, well-developed elderly female patient in [facility]. Awake and alert. SKIN: Warm and dry. No rash. HEENT: Normocephalic. Atraumatic. Pupils equal and round. Dry mucous membranes. NECK: Supple. Trachea midline. CARDIOVASCULAR: Regular rate and rhythm. 3/6 systolic ejection murmur noted. RESPIRATORY: Nonlabored. Clear to auscultation. Breath sounds equal bilaterally. GASTROINTESTINAL: Abdomen soft, non-tender, nondistended. Normoactive bowel sounds x4. MUSCULOSKELETAL: No obvious deformities. Extremities without clubbing, cyanosis , or edema. NEUROLOGICAL: Awake and alert. No obvious cranial nerve deficits. Motor grossly within normal limits. Moving all extremities spontaneously. Minimal verbalization, one-word answers, soft spoken. PSYCHIATRIC: Flat affect. Depressed mood. Procedures None A/P Assessment and Plan 72-year-old female who reports a past medical history significant for hypertension, hypothyroidism following thyroidectomy due to cancer, rheumatoid arthritis, heart murmur, bipolar disorder, depression, and fibromyalgia who presented to the emergency department accompanied by her on 01/21 from patient's doctor's office. Patient had apparently had an 18 pound weight loss along with decreased appetite which prompted referral to the emergency department. [facility] has been consulted to assist with management of medical condition including possible UTI and status post thyroidectomy. Bipolar disorder/depression -Continue treatment plan per psychiatry -Cardiology has cleared for antipsychotics with followup EKG to evaluate QTc - is serving as healthcare surrogate Suspected UTI UA collected in the ED was positive for occult blood, leukocytes esterase, and bacteria. Culture grew 50-100,00 mixed rafael most likely contaminated -Was given one-time dose of Cipro in the ER,culture was likely contaminated. Avoid fluoroquinolones due to borderline prolonged QTc -psychiatric technician assistant reports foul smelling urine. Repeat UA with proteinuria, small blood, greater than 4.0 urobilinogen, 23 red blood cells, culture not indicated -send urine for cytology. -currently on Ceftin, will continue Hypothyroidism -s/p thyroidectomy secondary to cancer -TSH 15.2, free T3 1.79, free T4 1.46 -TSH elevated likely due to noncompliance with medications -Resume Synthroid, check repeat TSH/T4 in 6 weeks Hypertension, uncontrolled -Likely secondary to patient's noncompliance with medications at home -Patient refusing p.o medications, clonidine patch ordered Constipation -Likely secondary to poor p.o. intake in combination with dehydration -Continue stool softener, encourage oral hydration Weight loss, Poor oral intake -Possibly linked to bipolar depression leading to poor p.o. intake -Medication adjustments per psychiatry -Refusing labs and little po intake, unable to hold her down for labs, will start IVF with D5 1/2 NS +KCl -Encourage to assist with medication compliance. -Resident Surgeon consulted, calorie count in progress Hypokalemia -Potassium level 3.3, orders for KCl 20 meq's, but pt refusing. -Unable to hold down for labs, orders of 20meq's KCL IV. -Repeat labs DVT prophylaxis-ambulation Bianca Easley Jan 27, 2018 14:22
--- NOTE | 2018-01-27 16:11 | HHI.PYPN ---
Subjective Chief Complaint: Depression, self-care deficit Remarks Psychiatric evaluation today the patient continues to be selectively mute. With prominent lack of motivation, refractory speech, blocking thought. She denies suicidal and homicidal ideation, she denies visual and auditory hallucinations. The patient continues to refuse her oral medications and is eating about 30% of her food. She does not present any stiffness, waxy flexibility, echophenomena that could suggest catatonia. Mental Status Examination Appearance: Appropriate Consciousness: Alert Orientation: x4 Motor Activity: Other (Extremely psychomotor slowed) Speech: Hesitant, Slow Language: Adequate Fund of Knowledge: Adequate Attention and Concentration: Inadequate Memory: Unremarkable (Grossly intact on clinical exam) Mood: Other (Alexithymic) Affect: Anxious, Other (Dysphoric) Thought Process & Associations: Other (Slowed) Thought Content: Appropriate Hallucination Type: None Delusion Type: None Suicidal Ideation: No (Unreliable to contract for safety) Suicidal Plan: No Suicidal Intention: No Homicidal Ideation: No Homicidal Plan: No Homicidal Intention: No Insight: Poor Judgment: Poor Results Labs Test 01/26/18 17:43 01/27/18 09:54 Urine Color K[place]ina Urine Turbidity HAZY Urine pH 6.0 Urine Specific [place] 1.026 Urine Protein 30 mg/dL Urine Glucose (UA) NEG mg/dL Urine Ketones 20 mg/dL Urine Occult Blood SMALL Urine Nitrite NEG Urine Bilirubin NEG Urine Urobilinogen 4.0 OR GREATER mg/dL Urine Leukocyte Esterase NEG Urine RBC 23 /hpf Urine WBC 5 /hpf Urine Hyaline Casts 5 /lpf Urine Mucus MANY /lpf Microscopic Urinalysis Comment CULT NOT INDICATED White Blood Count 5.3 TH/MM3 Red Blood Count 4.37 MIL/MM3 Hemoglobin 13.4 GM/DL Hematocrit 39.6 % Mean Corpuscular Volume 90.7 FL Mean Corpuscular Hemoglobin 30.8 PG Mean Corpuscular Hemoglobin Concent 33.9 % Red Cell Distribution Width 14.2 % Platelet Count 197 TH/MM3 Mean Platelet Volume 10.0 FL Neutrophils (%) (Auto) 76.0 % Lymphocytes (%) (Auto) 17.6 % Monocytes (%) (Auto) 5.1 % Eosinophils (%) (Auto) 0.7 % Basophils (%) (Auto) 0.6 % Neutrophils # (Auto) 4.0 TH/MM3 Lymphocytes # (Auto) 0.9 TH/MM3 Monocytes # (Auto) 0.3 TH/MM3 Eosinophils # (Auto) 0.0 TH/MM3 Basophils # (Auto) 0.0 TH/MM3 CBC Comment DIFF FINAL Differential Comment Blood Urea Nitrogen 20 MG/DL Creatinine 0.59 MG/DL Random Glucose 159 MG/DL Calcium Level 9.1 MG/DL Magnesium Level 2.4 MG/DL Sodium Level 142 MEQ/L Potassium Level 3.8 MEQ/L Chloride Level 106 MEQ/L Carbon Dioxide Level 26.4 MEQ/L Anion Gap 10 MEQ/L Estimat Glomerular Filtration Rate 101 ML/MIN Ammonia 21 MCMOL/L Valproic Acid (Depakene) Level 42 MCG/ML Date/Time Source Procedure Growth Status 01/21/18 15:00 Urine Random Urine Urine Culture - Final 50-100,000 CFU/ML MIXED BECKI... Complete Vitals/IOs Vital Signs Date Time Temp Pulse Resp B/P (MAP) Pulse Ox O2 Delivery O2 Flow Rate FiO2 01/27/18 05:43 97.1 53 15 167/69 (101) 97 Assessment & Plan Problem List: (1) Bipolar disorder, current episode depressed, severe, without psychotic features ICD Codes: F31.4 - Bipolar disorder, current episode depressed, severe, without psychotic features Assessment & Plan: Continue current psychotropic regimen. Continue encouraging the patient to take her medications and to eat. Brief supportive psychotherapy provided. Assessment & Plan Estimated LOS: days Justification for Cont. Inpt. Patient is unable to take care of herself due to the level of psychosis. Request HC Surrog/Guard Advoc?: Yes Rubio Mancera MD Jan 27, 2018 16:11
[2018-01-27 18:10] VITALS: BP 165/75; PULSE 65; RESP 16; TEMP 98.1
[2018-01-28] MEDS: D5-1/2 NS + KCL 20 MEQ INJ 1,000 ML IV SCH (02:36)
[2018-01-28] MEDS: LEVOTHYROXINE SODIUM 125 MCG TAB PO SCH (05:21)
[2018-01-28 05:27] VITALS: BP 141/73; PULSE 54; RESP 15; TEMP 97.8; O2SAT 94
[2018-01-28] MEDS ORDERED: DOCUSATE SODIUM 50 MG/SENNA 8.6 MG TAB PO ONE (07:30)
--- NOTE | 2018-01-28 08:18 | HHI.PR ---
Subjective Remarks Follow-up on patient with hypertension, poor oral intake, possible UTI. Patient seen and examined. Patient states she feels bloated today. She would like to stop the IV fluids. She continues to not have an appetite and eats and drinks very little. Discussed with patient importance of increasing her oral intake. Patient states she has not had a bowel movement in "a while" unable to get more specifics from patient. She denies any fever or chills. She denies any nausea or vomiting. She denies any chest pain or shortness of breath. She denies any dysuria. Objective Vitals Vital Signs Date Time Temp Pulse Resp B/P (MAP) Pulse Ox O2 Delivery O2 Flow Rate FiO2 01/28/18 05:27 97.8 54 15 141/73 (95) 94 01/27/18 18:10 98.1 65 16 165/75 (105) I/O 01/27/18 01/27/18 01/27/18 01/28/18 01/28/18 01/28/18 07:00 15:00 23:00 07:00 15:00 23:00 Intake Total 0 ml 60 ml 200 ml Balance 0 ml 60 ml 200 ml Intake Oral 0 ml 60 ml 200 ml # Voids 1 Result Diagram: 01/27/18 0954 01/27/18 0954 Objective Remarks GENERAL: Well-nourished, well-developed elderly female patient in [facility]. Awake and alert. Sitting up in bed. SKIN: Warm and dry. No rash. HEENT: Normocephalic. Atraumatic. Pupils equal and round. Dry mucous membranes. NECK: Supple. Trachea midline. CARDIOVASCULAR: Regular rate and rhythm. 3/6 systolic ejection murmur noted. RESPIRATORY: Nonlabored. Poor effort. Clear to auscultation. Breath sounds equal bilaterally. GASTROINTESTINAL: Abdomen soft, non-tender, nondistended. Normoactive bowel sounds x4. MUSCULOSKELETAL: No obvious deformities. Extremities without clubbing, cyanosis , or edema. NEUROLOGICAL: Awake and alert. No obvious cranial nerve deficits. Motor grossly within normal limits. Moving all extremities spontaneously. Minimal verbalization, one-word answers, soft spoken. PSYCHIATRIC: Flat affect. Depressed mood. Procedures None A/P Assessment and Plan 72-year-old female who reports a past medical history significant for hypertension, hypothyroidism following thyroidectomy due to cancer, rheumatoid arthritis, heart murmur, bipolar disorder, depression, and fibromyalgia who presented to the emergency department accompanied by her on 01/21 from patient's doctor's office. Patient had apparently had an 18 pound weight loss along with decreased appetite which prompted referral to the emergency department. [facility] has been consulted to assist with management of medical condition including possible UTI and status post thyroidectomy. Bipolar disorder/depression -Continue treatment plan per psychiatry -Cardiology has cleared for antipsychotics with followup EKG to evaluate QTc - is serving as healthcare surrogate Suspected UTI UA collected in the ED was positive for occult blood, leukocytes esterase, and bacteria. Culture grew 50-100,00 mixed rafael most likely contaminated -Was given one-time dose of Cipro in the ER,culture was likely contaminated. Avoid fluoroquinolones due to borderline prolonged QTc -psychological operations officer reports foul smelling urine. Repeat UA with proteinuria, small blood, greater than 4.0 urobilinogen, 23 red blood cells, culture not indicated -Recommend patient follow-up as outpatient with PCP/urology for further evaluation of urobilinogen and hematuria -Patient partially treated with Ceftin, will complete treatment Hypothyroidism s/p thyroidectomy secondary to cancer TSH 15.2, free T3 1.79, free T4 1.46 -TSH elevated likely due to noncompliance with medications -Resumed on home dose of Synthroid, check repeat TSH/T4 in 6 weeks Hypertension, uncontrolled -Likely secondary to patient's noncompliance with medications at home -Patient refusing p.o medications, clonidine patch ordered. Patient now agreeable to taking medications. Discontinue clonidine patch. Resume patient' s home dose of Norvasc 5 mg daily. -Continue to monitor BP and adjust treatment according Constipation -Likely secondary to poor p.o. intake in combination with dehydration -Continue stool softener, encourage oral hydration -add Miralax -monitor for BM Weight loss, Poor oral intake -Possibly linked to bipolar depression leading to poor p.o. intake -Medication adjustments per psychiatry -Encourage to assist with medication compliance. -Car Wash Supervisor consulted, calorie count in progress -Begin Megace 400 mg daily -strict I&Os Hypokalemia, resolved DVT prophylaxis-ambulation Bianca Easley Jan 28, 2018 08:18
[2018-01-28] MEDS ORDERED: POLYETHYLENE GLYCOL 17 GM PKG PO SCH (09:00)
[2018-01-28] MEDS: DOCUSATE SODIUM 50 MG/SENNA 8.6 MG TAB PO SCH (09:00)
[2018-01-28] MEDS: CEFUROXIME AXETIL 250 MG TAB PO SCH ×2 (09:23→20:21)
[2018-01-28] MEDS: ASPIRIN EC 81 MG TABEC PO SCH (09:24)
[2018-01-28] MEDS: DIVALPROEX DR 500 MG TABEC PO SCH ×2 (09:24→20:21)
[2018-01-28] MEDS: MEGESTROL ACETATE SUSP 400 MG/10 ML CUP PO SCH (09:25)
[2018-01-28] MEDS: HEPARIN SODIUM - SQ 10,000 UNITS/ML VIAL SQ SCH ×2 (09:25→20:21)
[2018-01-28] MEDS: ZIPRASIDONE HCL 40 MG CAP PO SCH ×2 (09:26→17:51)
--- NOTE | 2018-01-28 15:50 | HHI.PYPN ---
Subjective Chief Complaint: Depression, self-care deficit Remarks The patient was seen today for psychiatric reevaluation. The case was widely discussed with nurse in charge. On my evaluation today the patient is more talkative, she has an increase language production, able to tell me that she feels better, oriented 3, but continues to have a significant flat affect, lack of motivation, internal preoccupation, blocking thought and respiratory speech. Patient has been compliant on and off with the medications, no significant side effects reported. She has been eating about 50% of her food. Mental Status Examination Appearance: Appropriate Consciousness: Alert Orientation: x4 Motor Activity: Other (Extremely psychomotor slowed) Speech: Hesitant, Slow Language: Adequate Fund of Knowledge: Adequate Attention and Concentration: Inadequate Memory: Unremarkable (Grossly intact on clinical exam) Mood: Other (Alexithymic) Affect: Anxious, Other (Dysphoric) Thought Process & Associations: Other (Slowed) Thought Content: Appropriate Hallucination Type: None Delusion Type: None Suicidal Ideation: No (Unreliable to contract for safety) Suicidal Plan: No Suicidal Intention: No Homicidal Ideation: No Homicidal Plan: No Homicidal Intention: No Insight: Poor Judgment: Poor Results Labs Date/Time Source Procedure Growth Status 01/21/18 15:00 Urine Random Urine Urine Culture - Final 50-100,000 CFU/ML MIXED BECKI... Complete Vitals/IOs Vital Signs Date Time Temp Pulse Resp B/P (MAP) Pulse Ox O2 Delivery O2 Flow Rate FiO2 01/28/18 05:27 97.8 54 15 141/73 (95) 94 Intake and Output 01/28/18 01/28/18 01/29/18 08:00 16:00 00:00 Intake Total 20 ml 0 ml Balance 20 ml 0 ml Assessment & Plan Problem List: (1) Bipolar disorder, current episode depressed, severe, without psychotic features ICD Codes: F31.4 - Bipolar disorder, current episode depressed, severe, without psychotic features Assessment & Plan: Patient shows a modest improvement today. But continues to have a significant flat affect, respiratory speech, blocking thought. Continue current psychotropic regimen. Continue encouraging the patient to eat, to walk in the unit to participate in activities. Assessment & Plan Estimated LOS: days Justification for Cont. Inpt. Patient has an elevated risk to decompensate at a lower level of care. Request HC Surrog/Guard Advoc?: Yes Rubio Mancera MD Jan 28, 2018 15:50
[2018-01-28 18:28] VITALS: BP 139/86; PULSE 62; RESP 16; TEMP 97.1; O2SAT 96
[2018-01-29 06:39] VITALS: BP 153/79; PULSE 63; RESP 16; TEMP 97.8; O2SAT 95
--- NOTE | 2018-01-29 08:38 | HHI.PR ---
Subjective Remarks Follow-up on patient with hypertension, poor oral intake, possible UTI. Patient seen and examined. She states she feels less bloated today since IV fluids were discontinued. She still not had a bowel movement. She denies any acute medical complaints. She continues to not have an appetite. Discussed with patient she can have whatever food she so chooses but she states she is not interested in eating anything. She repetitively tells me that everything is fine and that she would like to go. She denies any fever chills. Denies any chest pain or shortness of breath. Denies any nausea, vomiting or abdominal pain. She denies any dysuria. Discussed with RN, no acute issues noted outside of continued poor oral intake. Calorie count to be completed today. Objective Vitals Vital Signs Date Time Temp Pulse Resp B/P (MAP) Pulse Ox O2 Delivery O2 Flow Rate FiO2 01/29/18 06:39 97.8 63 16 153/79 (103) 95 01/28/18 18:28 97.1 62 16 139/86 (103) 96 I/O 01/28/18 01/28/18 01/28/18 01/29/18 01/29/18 01/29/18 07:00 15:00 23:00 07:00 15:00 23:00 Intake Total 200 ml 0 ml Balance 200 ml 0 ml Intake Oral 200 ml 0 ml Result Diagram: 01/27/18 0954 01/27/18 0954 Objective Remarks GENERAL: Well-nourished, well-developed elderly female patient in [facility]. Awake and alert. Flat affect. Sitting up in bed. SKIN: Warm and dry. No rash. HEENT: Normocephalic. Atraumatic. Pupils equal and round. Dry mucous membranes. NECK: Supple. Trachea midline. CARDIOVASCULAR: Regular rate and rhythm. 3/6 systolic ejection murmur noted. RESPIRATORY: Nonlabored. Poor effort. Clear to auscultation. Breath sounds equal bilaterally. GASTROINTESTINAL: Abdomen soft, non-tender, nondistended. Normoactive bowel sounds x4. MUSCULOSKELETAL: No obvious deformities. Extremities without clubbing, cyanosis , or edema. NEUROLOGICAL: Awake and alert. No obvious cranial nerve deficits. Motor grossly within normal limits. Moving all extremities spontaneously. Slow soft spoken speech. PSYCHIATRIC: Flat affect. Depressed mood. Procedures None A/P Assessment and Plan 72-year-old female who reports a past medical history significant for hypertension, hypothyroidism following thyroidectomy due to cancer, rheumatoid arthritis, heart murmur, bipolar disorder, depression, and fibromyalgia who presented to the emergency department accompanied by her on 01/21 from patient's doctor's office. Patient had apparently had an 18 pound weight loss along with decreased appetite which prompted referral to the emergency department. [facility] has been consulted to assist with management of medical condition including possible UTI and status post thyroidectomy. Bipolar disorder/depression -Continue treatment plan per psychiatry -Cardiology has cleared for antipsychotics with followup EKG to evaluate QTc. Repeat EKG ordered. - is serving as healthcare surrogate Suspected UTI UA collected in the ED was positive for occult blood, leukocytes esterase, and bacteria. Culture grew 50-100,00 mixed rafael most likely contaminated -Was given one-time dose of Cipro in the ER,culture was likely contaminated. Avoid fluoroquinolones due to borderline prolonged QTc -psychological anthropologist reports foul smelling urine. Repeat UA with proteinuria, small blood, greater than 4.0 urobilinogen, 23 red blood cells, culture not indicated -Recommend patient follow-up as outpatient with PCP/urology for further evaluation of urobilinogen and hematuria -Patient partially treated with Ceftin, will complete treatment Hypothyroidism s/p thyroidectomy secondary to cancer TSH 15.2, free T3 1.79, free T4 1.46 -TSH elevated likely due to noncompliance with medications -Synthroid resumed, check repeat TSH/T4 in 6 weeks Hypertension, uncontrolled secondary to patient's noncompliance with medications at home -Clonidine patch discontinued and home dose of Norvasc 5mg daily resumed as patient is agreeable to taking oral medications -Vasotec IV prn -Continue to monitor BP and adjust treatment accordingly Constipation -Likely secondary to poor p.o. intake in combination with dehydration -Continue stool softener, encourage oral hydration Weight loss, Poor oral intake Possibly linked to bipolar depression leading to poor p.o. intake -Medication adjustments per psychiatry -started on Megace 400mg daily, continue -Curber consulted, calorie count in progress, to be completed today -strict I&Os -encourage fluid intake -monitor BS with accucheks Hypokalemia, resolved s/p repletion DVT prophylaxis-ambulation, Heparin sq - SCD/MADAY santamariae ordered as patient intermittently refusing heparin Bianca Easley Jan 29, 2018 08:38
[2018-01-29] MEDS ORDERED: DEXTROSE 50% IN WATER 50 ML VIAL(D50) IV PUSH PRN (08:45)
[2018-01-29] MEDS ORDERED: ENALAPRILAT 1.25 MG/ML VIAL IV PUSH PRN (08:45)
[2018-01-29] MEDS ORDERED: GLUCAGON 1 MG/ML VIAL OTHER PRN (08:45)
[2018-01-29] MEDS: CEFUROXIME AXETIL 250 MG TAB PO SCH ×3 (09:00→22:58)
[2018-01-29] MEDS: DIVALPROEX DR 500 MG TABEC PO SCH ×3 (09:00→22:58)
[2018-01-29] MEDS: ZIPRASIDONE HCL 40 MG CAP PO SCH ×3 (09:00→18:00)
[2018-01-29] MEDS: HEPARIN SODIUM - SQ 10,000 UNITS/ML VIAL SQ SCH ×3 (09:00→22:57)
[2018-01-29] MEDS: ASPIRIN EC 81 MG TABEC PO SCH (09:05)
[2018-01-29] MEDS: DOCUSATE SODIUM 50 MG/SENNA 8.6 MG TAB PO SCH (09:05)
[2018-01-29] MEDS: MEGESTROL ACETATE SUSP 400 MG/10 ML CUP PO SCH (09:05)
[2018-01-29] MEDS: amLODIPine BESYLATE 5 MG TAB PO SCH (09:05)
--- NOTE | 2018-01-29 14:49 | HHI.PYPN ---
Subjective Chief Complaint: Depression, self-care deficit Remarks Patient was seen today for psychiatric reevaluation, she was also seen in [place]. On my evaluation today the patient shows no improvement in her negative symptoms, she continues to be very flat, distant, with a prominent respiratory speech, blocking thought and lack of motivation. A [place] [address] today she was able to say that she wants to continue her treatment, which she declined ECT. Review of Systems Constitutional: DENIES: Diaphoretic episodes, Fatigue, Fever, Weight gain, Weight loss, Chills, Dizziness, Change in appetite, Night Sweats Endocrine: DENIES: Abnorml menstrual pattern, Heat/cold intolerance, Polydipsia , Polyuria, Polyphagia Eyes: DENIES: Blurred vision, Diplopia, Eye inflammation, Eye pain, Vision loss , Photosensitivity, Double Vision Ears, nose, mouth, throat: DENIES: Tinnitus, Hearing loss, Vertigo, Nasal discharge, Oral lesions, Throat pain, Hoarseness, Ear Pain, Running Nose, Epistaxis, Sinus Pain, Toothache, Odynophagia Respiratory: DENIES: Apneas, Cough, Snoring, Wheezing, Hemoptysis, Sputum production, Shortness of breath Cardiovascular: DENIES: Chest pain, Palpitations, Syncope, Dyspnea on Exertion , PND, Lower Extremity Edema, Orthopnea, Claudication Genitourinary: DENIES: Abnormal vaginal bleeding, Dysmenorrhea, Dyspareunia, Sexual dysfunction, Urinary frequency, Urinary incontinence, Urgency, Hematuria , Dysuria, Nocturia, Vaginal discharge Mental Status Examination Appearance: Appropriate Consciousness: Alert Orientation: x4 Motor Activity: Other (Extremely psychomotor slowed) Speech: Hesitant, Slow Language: Adequate Fund of Knowledge: Adequate Attention and Concentration: Inadequate Memory: Unremarkable (Grossly intact on clinical exam) Mood: Other (Alexithymic) Affect: Anxious, Other (Dysphoric) Thought Process & Associations: Other (Slowed) Thought Content: Appropriate Hallucination Type: None Delusion Type: None Suicidal Ideation: No (Unreliable to contract for safety) Suicidal Plan: No Suicidal Intention: No Homicidal Ideation: No Homicidal Plan: No Homicidal Intention: No Insight: Poor Judgment: Poor Results Labs Date/Time Source Procedure Growth Status 01/21/18 15:00 Urine Random Urine Urine Culture - Final 50-100,000 CFU/ML MIXED BECKI... Complete Vitals/IOs Vital Signs Date Time Temp Pulse Resp B/P (MAP) Pulse Ox O2 Delivery O2 Flow Rate FiO2 01/29/18 06:39 97.8 63 16 153/79 (623) 54 Assessment & Plan Problem List: (1) Bipolar disorder, current episode depressed, severe, without psychotic features ICD Codes: F31.4 - Bipolar disorder, current episode depressed, severe, without psychotic features Assessment & Plan: On psychiatric evaluation today patient continues to be quite hypoactive, with marked psychomotor retardation and refractory. Given the lack of motivation, respiratory speech, flat affect, psychomotor retardation I will try Ativan 1 mg IV every 8 hours today as for catatonia treatment. Assessment & Plan Estimated LOS: days Justification for Cont. Inpt. Patient continues to be psychomotor retarded, flat affect, speech delay. Request HC Surrog/Guard Advoc?: Yes Rubio Mancera MD Jan 29, 2018 14:49
[2018-01-29] MEDS ORDERED: LORazepam 2 MG/ML VIAL IM ONE (15:00)
[2018-01-29 18:00] VITALS: BP 123/88; PULSE 99; RESP 17; TEMP 97.4; O2SAT 97
--- NOTE | 2018-01-29 19:08 | EKG ---
Date Performed: 01/29/2018 Time Performed: 11:27:18 PTAGE: 72 years EKG: Sinus rhythm WITH FIRST DEGREE AV BLOCK INDETERMINATE AXIS NONSPECIFIC T-WAVE ABNORMALITY ABNORMAL ECG PREVIOUS TRACING : 01/26/2018 05.26 When compared to prior EKG,the marked anterolateral T-wave inversion has improved. Clinical correlation is recommended DOCTOR: Mariah Mendoza Interpretating Date/Time 01/29/2018 19:06:54
[2018-01-29] MEDS: LORazepam 2 MG/ML VIAL IV PUSH SCH (22:58)
[2018-01-30] MEDS: LORazepam 2 MG/ML VIAL IV PUSH SCH (06:09)
[2018-01-30] MEDS: LEVOTHYROXINE SODIUM 125 MCG TAB PO SCH (06:10)
[2018-01-30 06:51] VITALS: BP 119/68; PULSE 63; RESP 17; TEMP 97.9; O2SAT 96
[2018-01-30] MEDS: ZIPRASIDONE HCL 40 MG CAP PO SCH ×2 (09:00→18:00)
[2018-01-30] MEDS: CEFUROXIME AXETIL 250 MG TAB PO SCH ×2 (09:00→21:45)
[2018-01-30] MEDS: ASPIRIN EC 81 MG TABEC PO SCH (09:00)
[2018-01-30] MEDS: amLODIPine BESYLATE 5 MG TAB PO SCH (09:00)
[2018-01-30] MEDS: DOCUSATE SODIUM 50 MG/SENNA 8.6 MG TAB PO SCH (09:00)
[2018-01-30] MEDS: MEGESTROL ACETATE SUSP 400 MG/10 ML CUP PO SCH (09:00)
[2018-01-30] MEDS: HEPARIN SODIUM - SQ 10,000 UNITS/ML VIAL SQ SCH ×2 (09:00→21:46)
[2018-01-30] MEDS: DIVALPROEX DR 500 MG TABEC PO SCH ×2 (09:00→21:46)
--- NOTE | 2018-01-30 10:11 | HHI.PR ---
Subjective Remarks Follow-up on patient with hypertension, poor oral intake, possible UTI. Patient seen and examined. Patient complains of being extremely tired today. Noted that she was given IM Ativan this morning. Patient has no other complaints except she still not had a bowel movement since admission. Discussed with nursing staff, patient eating about 25% of meals. Objective Vitals Vital Signs Date Time Temp Pulse Resp B/P (MAP) Pulse Ox O2 Delivery O2 Flow Rate FiO2 01/30/18 06:51 97.9 63 17 119/68 (85) 96 01/29/18 18:00 97.4 99 17 123/88 (100) 97 I/O 01/29/18 01/29/18 01/29/18 01/30/18 01/30/18 01/30/18 07:00 15:00 23:00 07:00 15:00 23:00 Intake Total 360 ml 0 ml 240 ml Balance 360 ml 0 ml 240 ml Intake Oral 360 ml 0 ml 240 ml # Voids 0 1 Result Diagram: 01/27/1854 01/27/1854 Objective Remarks GENERAL: Well-nourished, well-developed elderly female patient in NAD. Lying in bed. Lethargic. SKIN: Warm and dry. No rash. HEENT: Normocephalic. Atraumatic. Pupils equal and round. Dry mucous membranes. NECK: Supple. Trachea midline. CARDIOVASCULAR: Regular rate and rhythm. 3/6 systolic ejection murmur noted. RESPIRATORY: Nonlabored. Poor effort. Clear to auscultation. Breath sounds equal bilaterally. GASTROINTESTINAL: Abdomen soft, non-tender, nondistended. Normoactive bowel sounds x4. MUSCULOSKELETAL: No obvious deformities. Extremities without clubbing, cyanosis , or edema. NEUROLOGICAL: Lethargic but able to give appropriate responses. No obvious cranial nerve deficits. Motor grossly within normal limits. Moving all extremities spontaneously. PSYCHIATRIC: Flat affect. Depressed mood. Procedures None A/P Assessment and Plan 72-year-old female who reports a past medical history significant for hypertension, hypothyroidism following thyroidectomy due to cancer, rheumatoid arthritis, heart murmur, bipolar disorder, depression, and fibromyalgia who presented to the emergency department accompanied by her on 01/21 from patient's doctor's office. Patient had apparently had an 18 pound weight loss along with decreased appetite which prompted referral to the emergency department. [facility] has been consulted to assist with management of medical condition including possible UTI and status post thyroidectomy. Bipolar disorder/depression -Continue treatment plan per psychiatry -Cardiology has cleared for antipsychotics with followup EKG to evaluate QTc. Repeat EKG obtained 01/29, QTc 426. - is serving as healthcare surrogate Suspected UTI UA collected in the ED was positive for occult blood, leukocytes esterase, and bacteria. Culture grew 50-100,00 mixed rafael most likely contaminated -Was given one-time dose of Cipro in the ER,culture was likely contaminated. Avoid fluoroquinolones due to borderline prolonged QTc -adult psychiatrist reports foul smelling urine. Repeat UA with proteinuria, small blood, greater than 4.0 urobilinogen, 23 red blood cells, culture not indicated -Recommend patient follow-up as outpatient with PCP/urology for further evaluation of urobilinogen and hematuria -Patient partially treated with Ceftin, will complete treatment Hypothyroidism s/p thyroidectomy secondary to cancer TSH 15.2, free T3 1.79, free T4 1.46 -TSH elevated likely due to noncompliance with medications -Synthroid resumed, check repeat TSH/T4 in 6 weeks Hypertension, uncontrolled secondary to patient's noncompliance with medications at home -Clonidine patch discontinued and home dose of Norvasc 5mg daily resumed as patient is agreeable to taking oral medications -Vasotec IV prn -Continue to monitor BP and adjust treatment accordingly Constipation -Likely secondary to poor p.o. intake in combination with dehydration -Continue stool softener, encourage oral hydration -Give dose of Miralax Weight loss, Poor oral intake Possibly linked to bipolar depression leading to poor p.o. intake -Medication adjustments per psychiatry -Continue on Megace -Glass Cutting Machine Feeder consulted, calorie count completed, inadequate p.o. intake. Recommending tube feedings, checking daily electrolytes, multivitamin and thiamine daily. Discussed with who would like to speak to his later today before deciding on how to proceed forward. Note, patient received just her third dose of Megace today. Consult Palliative care to assist, appreciate recommendations. -strict I&Os -encourage fluid intake -monitor BS with accucheks Hypokalemia, resolved s/p repletion -Repeat BMP ordered DVT prophylaxis-ambulation, Heparin sq - SCD/MADAY hose ordered as patient intermittently refusing heparin Bianca Easley Jan 30, 2018 10:11
[2018-01-30] MEDS ORDERED: POLYETHYLENE GLYCOL 17 GM PKG PO ONE (10:15)
[2018-01-30] MEDS ORDERED: MULTIVITAMIN TAB PO ONE (14:15)
[2018-01-30] MEDS ORDERED: THIAMINE HCL 100 MG TAB PO ONE (14:15)
--- NOTE | 2018-01-30 14:57 | HHI.PYPN ---
Subjective Chief Complaint: Depression, self-care deficit Remarks The patient was seen today for psychiatric reevaluation. The patient today with a brighter affect, talking in full sentences, completely oriented 3, taking her p.o. medication, eating her food. The patient showed a significant positive response to Ativan challenge yesterday suggesting that the patient was most probably catatonic and for this reason the patient was presenting such a significant lack of motivation, oppositional behavior, flat affect, blocking thought and respiratory speech. Patient continued to endorse depression, continue to have some level of delay in her thought process, but she denies suicidal and homicidal ideation, she denies visual and auditory hallucinations. Review of Systems Psychiatric: COMPLAINS OF: Depression Except as stated in HPI: all other systems reviewed are Neg Mental Status Examination Appearance: Appropriate Consciousness: Alert Orientation: x4 Motor Activity: Other (Extremely psychomotor slowed) Speech: Hesitant, Slow Language: Adequate Fund of Knowledge: Adequate Attention and Concentration: Inadequate Memory: Unremarkable (Grossly intact on clinical exam) Mood: Other (Alexithymic) Affect: Anxious, Other (Dysphoric) Thought Process & Associations: Other (Slowed) Thought Content: Appropriate Hallucination Type: None Delusion Type: None Suicidal Ideation: No (Unreliable to contract for safety) Suicidal Plan: No Suicidal Intention: No Homicidal Ideation: No Homicidal Plan: No Homicidal Intention: No Insight: Fair Judgment: Impulsive Results Labs Date/Time Source Procedure Growth Status 01/21/18 15:00 Urine Random Urine Urine Culture - Final 50-100,000 CFU/ML MIXED BECKI... Complete Vitals/IOs Vital Signs Date Time Temp Pulse Resp B/P (MAP) Pulse Ox O2 Delivery O2 Flow Rate FiO2 01/30/18 06:51 97.9 63 17 119/68 (85) 96 Intake and Output 01/30/18 01/30/18 01/31/18 08:00 16:00 00:00 Intake Total 240 ml Balance 240 ml Assessment & Plan Problem List: (1) Bipolar I disorder with catatonia ICD Codes: F31.9 - Bipolar disorder, unspecified; F06.1 - Catatonic disorder due to known physiological condition Assessment & Plan: Continue Ativan 2 mg p.o. 3 times per day for catatonia. Patient shows a very good response to this regimen. Geodon 40 mg twice daily Depakote 500 mg twice daily. Assessment & Plan Estimated LOS: days Justification for Cont. Inpt. Patient continues to be psychotic, very depressed, she needs psychiatric hospitalization for stabilization Request HC Surrog/Guard Advoc?: Yes Rubio Mancera MD Jan 30, 2018 14:57
[2018-01-30] MEDS ORDERED: SODIUM CHLOR 0.9% 1000 ML INJ 1,000 ML IV SCH (15:00)
--- NOTE | 2018-01-30 15:35 | PD.CONS ---
Consult Service Palliative Care Consult Requested By MAURA Mcghee Primary Care Physician Karina Harrison MD Reason for Consultation a. To assist with evaluation and management of symptoms including: anorexia , depression b. To assist medical decision maker(s) with: better understanding of current medical conditions; weighing benefits/burdens of medical treatment options; making medical treatment decisions. HPI History of Present Illness Dual visit with Dr García. This is a 72 yo female with hx bipolar disorder, depression, who presented to the ER 01/21 brought by her after being referred by PCP Dr Harrison for psych eval. It was noted during visit with Dr Mendoza that pt had had 18lb weight loss in 1 month. Pt's reported that she was starting at the wall, sleeping less than normal, not eating. Pt reported to psych that she had felt poorly in the last month after tapering steroids for a joint condition. Psych noted her to be alexithymic and started depakote, geodon, PRN ativan, ambien and was considering possibility of ECT which pt later declined. 01/23 Cardiology consulted for QT prolongation and cleared pt for antipsychotic meds. 01/29 Bailey act continued and appointed as proxy decision maker. Reportedly she has only been eating 25% of meals and has been refusing some meds. Nutrition recommended TF. Reportedly she did eat more and had improved affect and orientation today after "ativan challenge" for catatonia. She is currently admitted to inpatient psych unit. Per RN she is eating 25% diet and today has been lethargic and with flat affect , speaking minimally. RN notes pt seems to have declined and has flatter affect than when first admitted a week ago. Pt has refused some meds but seems to be compliant today. On our evaluation pt is lethargic, minimally verbal, very flat. She is quite slow to answer but does seem to answer appropriately, however selectively as well. She had 2 prior psych admissions in 2006 for bipolar symptoms, hearing voices, paranoia, refusing to take meds, at which time reported that his 's family though him responsible for her bipolar disorder. . Function/Cognitive Trajectory Reportedly was ambulatory yesterday after 2mg ativan. She is eating minimally. Hx bipolar, depression. Reportedly has been more depressed in last month after finding out a close Aunt is coping with cancer. Last psychiatric admission in 2006. Review of Systems ROS Limitations: Clinical Condition (minimally verbal, slow to answer, selectively answers.) Constitutional: COMPLAINS OF: Weight loss, Change in appetite, Sleep problems, DENIES: Pain Ears, nose, mouth, throat: DENIES: Hearing loss, Hoarseness Respiratory: DENIES: Shortness of breath Cardiovascular: DENIES: Chest pain Gastrointestinal: COMPLAINS OF: Constipation, DENIES: Abdominal pain, Vomiting Musculoskeletal: DENIES: Joint pain Integumentary: DENIES: Rash Hematologic/Lymphatics: DENIES: Bruising Immunologic/Allergic: DENIES: Eczema Neurologic: DENIES: Seizures Psychiatric: COMPLAINS OF: Mood changes, Depression Past Family Social History Coded Allergies: Iodinated Contrast- Oral and IV Dye (Verified Allergy, Unknown, 01/21/18) Past Medical History bipolar HTN hypothyroid s/p thyroidectomy thyroid ca RA depression fibromyalgia . Past Surgical History thyroidectomy tonsillectomy right breast lumpectomy . Reported Medications Valsartan-Hydrochlorothiazide 320-25 Mg Tab 1 Tab PO DAILY Valsartan 80 Mg Tab 160 Mg PO BID Norvasc (Amlodipine Besylate) 5 Mg Tab 5 Mg PO DAILY Synthroid (Levothyroxine Sodium) 125 Mcg Tab 125 Mcg PO EVERY OTHER DAY Alternate with Synthroid 137mcg every other day Trazodone (Trazodone HCl) 150 Mg Tablet 150-300 Mg PO HS PRN Ativan (Lorazepam) 1 Mg Tab 1 Mg PO TID PRN Aspirin Adult Low Strength (Aspirin) 81 Mg Tabdr 81 Mg PO DAILY . Current Medications Medications (Trade) Dose Ordered Sig/Shayy Route Start Time Stop Time Status Last Admin (Tylenol) 650 mg Q4H PRN PO 01/22/18 10:00 (Milk Of Magnesia Liq) 30 ml DAILY PRN PO 01/22/18 10:00 (Mag-Al Plus Susp Liq) 30 ml Q6H PRN PO 01/22/18 10:00 (Norvasc) 5 mg DAILY PO 01/23/18 09:00 Future hold 01/30/18 09:00 (Ecotrin Ec) 81 mg DAILY PO 01/23/18 09:00 01/30/18 09:00 (Depakote Dr) 500 mg BID PO 01/23/18 21:00 01/30/18 09:00 (Ativan) 0.5 mg Q6H PRN PO 01/23/18 12:45 (Ativan Inj) 0.5 mg Q6H PRN IM 01/23/18 12:45 (Ambien) 5 mg HS PRN PO 01/23/18 21:00 (Andreea-Colace) 1 tab DAILY PO 01/24/18 09:00 01/30/18 09:00 Miscellaneous Information 1 Q7D T-DERMAL 01/31/18 09:00 (Heparin Inj) 5,000 units Q12HR SQ 01/24/18 21:00 01/30/18 09:00 (Synthroid) 125 mcg Q48H PO 01/26/18 06:00 01/30/18 06:10 (Ceftin) 250 mg Q12HR PO 01/24/18 21:00 01/30/18 09:00 (Geodon) 40 mg BIDPC PO 01/24/18 18:00 01/30/18 09:00 (Geodon Inj) 10 mg Q12H PRN IM 01/24/18 14:15 01/26/18 19:11 (Megace Liq) 400 mg DAILY PO 01/28/18 09:00 01/30/18 09:00 (Vasotec Inj) 1.25 mg Q6H PRN IV PUSH 01/29/18 08:45 (Miralax) 17 gm DAILY PRN PO 01/29/18 08:45 (D50w (Vial) Inj) 50 ml UNSCH PRN IV PUSH 01/29/18 08:45 (Glucagon Inj) 1 mg UNSCH PRN OTHER 01/29/18 08:45 (Vitamin B1) 100 mg DAILY PO 01/31/18 09:00 (Theragran) 1 tab DAILY PO 01/31/18 09:00 Sodium Chloride 1,000 ml @ 42 mls/hr [id number] IV 01/30/18 15:00 01/31/18 14:48 (Ativan Inj) 2 mg STAT ONCE IV PUSH 01/31/18 14:00 01/31/18 14:01 (Ativan) 2 mg Q8H PO 01/30/18 21:00 . Family History Mother of Parkinson's age 85 Father of heart trouble at age 78 . Substance Use Per EMR Tobacco: denies Alcohol: denies Prescription med abuse: denies Illicits: denies . Psychosocial History Lives at home with and daughter. Also has a son. 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 Spiritual/Cultural Factors Baptism samir, attends [employer]. Declines hospital circular head saw operator visit . Living Will: Never completed Health Care Surrogate: Never completed Durable Power of Lace Finisher: Never completed Ethical and Legal Issues Per Bailey act hearing 01/29, Ilya to serve as proxy. Incapacitated to maker her own decisions at this time. Physical Exam Vital Signs Date Time Temp Pulse Resp B/P (MAP) Pulse Ox O2 Delivery O2 Flow Rate FiO2 01/30/18 06:51 97.9 63 17 119/68 (85) 96 01/29/18 18:00 97.4 99 17 123/88 (100) 97 01/30/18 01/31/18 19:00 07:00 Intake Total 240 ml Balance 240 ml Intake Oral 240 ml Exam CONSTITUTIONAL/GENERAL: This is an adequately nourished patient, in no apparent distress. Appears to be sleeping TUBES/LINES/DRAINS: none SKIN: No jaundice, rashes, or lesions.No wounds seen anteriorly. Skin temperature appropriate. Not diaphoretic. HEAD: Atraumatic. Normocephalic. EYES: opens eyes on request briefly. Fundi not examined. ENT: Hearing grossly normal. Nose without bleeding or purulent drainage. NECK: Trachea midline. Supple CARDIOVASCULAR: RRR +murmur. No JVD. RESPIRATORY/CHEST: Symmetric, shallow, unlabored respirations. Clear to auscultation. Breath sounds equal bilaterally. GASTROINTESTINAL: Abdomen soft, non-tender, nondistended. No palpable masses. No guarding. Bowel sounds present. GENITOURINARY: Without palpable bladder distension. MUSCULOSKELETAL: Extremities without clubbing, cyanosis, or edema. No mottling or clubbing. NEUROLOGICAL: lethargic, slow to answer, answer appropriately PSYCHIATRIC: flat affect . Diagnostic Tests Laboratory Laboratory Tests Test 01/21/18 13:10 01/21/18 15:00 01/23/18 06:44 01/26/18 17:43 Blood Urea Nitrogen 24 MG/DL Creatinine 0.85 MG/DL Random Glucose 105 MG/DL Total Protein 7.7 GM/DL Albumin 4.3 GM/DL Calcium Level 9.9 MG/DL Alkaline Phosphatase 62 U/L Aspartate Amino Transf (AST/SGOT) 30 U/L Alanine Aminotransferase (ALT/SGPT) 34 U/L Total Bilirubin 0.7 MG/DL Sodium Level 136 MEQ/L Potassium Level 3.4 MEQ/L Chloride Level 100 MEQ/L Carbon Dioxide Level 22.3 MEQ/L Free Thyroxine 1.46 NG/DL Free Triiodothyronine (T3) pg/dL 1.79 PG/ML Thyroid Stimulating Hormone 3rd Gen 15.200 uIU/ML Ethyl Alcohol Level LESS THAN 3 MG/DL Urine Squamous Epithelial Cells 1 /hpf Urine Bacteria FEW /hpf Urine Opiates Screen NEG Urine Barbiturates Screen NEG Urine Amphetamines Screen NEG Urine Benzodiazepines Screen NEG Urine Cocaine Screen NEG Urine Cannabinoids Screen NEG Hemoglobin A1c 5.3 % Triglycerides Level 109 MG/DL Cholesterol Level 156 MG/DL LDL Cholesterol 100 MG/DL HDL Cholesterol 34.6 MG/DL Cholesterol/HDL Ratio 4.50 RATIO Urine Color Katalina Urine Turbidity HAZY Urine pH 6.0 Urine Specific Kirwin 1.026 Urine Protein 30 mg/dL Urine Glucose (UA) NEG mg/dL Urine Ketones 20 mg/dL Urine Occult Blood SMALL Urine Nitrite NEG Urine Bilirubin NEG Urine Urobilinogen 4.0 OR GREATER mg/dL Urine Leukocyte Esterase NEG Urine RBC 23 /hpf Urine WBC 5 /hpf Urine Hyaline Casts 5 /lpf Urine Mucus MANY /lpf Microscopic Urinalysis Comment CULT NOT INDICATED Test 01/27/18 09:54 01/30/18 14:33 White Blood Count 5.3 TH/MM3 Red Blood Count 4.37 MIL/MM3 Hemoglobin 13.4 GM/DL Hematocrit 39.6 % Mean Corpuscular Volume 90.7 FL Mean Corpuscular Hemoglobin 30.8 PG Mean Corpuscular Hemoglobin Concent 33.9 % Red Cell Distribution Width 14.2 % Platelet Count 197 TH/MM3 Mean Platelet Volume 10.0 FL Neutrophils (%) (Auto) 76.0 % Lymphocytes (%) (Auto) 17.6 % Monocytes (%) (Auto) 5.1 % Eosinophils (%) (Auto) 0.7 % Basophils (%) (Auto) 0.6 % Neutrophils # (Auto) 4.0 TH/MM3 Lymphocytes # (Auto) 0.9 TH/MM3 Monocytes # (Auto) 0.3 TH/MM3 Eosinophils # (Auto) 0.0 TH/MM3 Basophils # (Auto) 0.0 TH/MM3 CBC Comment DIFF FINAL Differential Comment Ammonia 21 MCMOL/L Valproic Acid (Depakene) Level 42 MCG/ML Blood Urea Nitrogen 10 MG/DL Creatinine 0.71 MG/DL Random Glucose 95 MG/DL Calcium Level 9.2 MG/DL Phosphorus Level 2.9 MG/DL Magnesium Level 2.2 MG/DL Sodium Level 139 MEQ/L Potassium Level 3.4 MEQ/L Chloride Level 102 MEQ/L Carbon Dioxide Level 25.7 MEQ/L Anion Gap 11 MEQ/L Estimat Glomerular Filtration Rate 81 ML/MIN Result Diagram: 01/27/18 0954 01/27/18 0954 Patient/Family Conference Present at Family Conference: pending call from Issues Discussed: * Palliative care role, purpose, approach * Additional medical, psychosocial, and spiritual history * Patients general health, functional status, and cognitive changes in the months leading up to the current hospitalization * Patient/family understanding of the current medical problems * Patient/family understanding of prognosis * Patients goals of care as best understood from advance directives and/or conversations and/or values * Current medical treatment options and benefits/burdens of those options * Likely scenarios comparing ongoing aggressive care with a transition to comfort measures only * Questions answered to the best of my ability * Palliative care contact information provided Assessment and Plan Disease Oriented Problem List: (1) Weight loss Comment: loss 18 lbs in 1 month (2) Bipolar disorder, current episode depressed, severe, without psychotic features (3) Bipolar I disorder with catatonia (4) Hypothyroidism Comment: thyroid ca 2006 s/p radioactive iodine, thyroidectomy Symptom Scale: (1) Depression 0-10 Scale: Unable to quantify (2) Decreased oral intake 0-10 Scale: Unable to quantify Pertinent Non-Medical Issues Psychosocial: Living at home with , daughter. Retired. Spiritual: Baptism, attends [employer] Legal: Bailey act 01/29, appointed Ilya as HCS. Ethical issues impacting care: Pt Lynn acted and incapacitated to make her own decisions at this time . Important Contacts Ilya [phone] Brother Jeannie [place] Prognosis 72 year old female with hx bipolar disorder, depression, hypothyroid. She had 2 psychiatric admission in 2006 for bipolar symptoms, does not appear to have had any since. She has lost 18 lbs in the last month, reportedly depressed r/t external stressor. Eating little, 25% of meals and nutrition has recommended TF. Noted to have some QT prolongation by cardiology but was cleared for antipsychotic meds. Does not appear to have any severe underlying chronic or terminal illnesses. Should she continue to eat little and remain depressed and sedentary, she is at risk for continued decline, debility, and setbacks. Prognosis dependent response to treatment. Code Status: Full Code Plan * CODE STATUS - full code * LEGAL DECISION MAKER - per 01/29 Bailey Act, Ilya is appointed as proxy decision maker * GOALS - pending discussion with * SYMPTOMS * decreased PO intake - voluntary, likely likely 2/2 current psychiatric illness. eating little over last month, lost 18 lbs. albumin 4.3 on admission. eating 25 % of meals, after calorie count nutrition has recommended TF. on Megace. * depression - hx bipolar with depression. reportedly has been more depressed after learning of close Aunt with cancer. psych managing meds, exploring ativan trial for catatonia. * We do not identify a serious chronic or terminal illness. Decisions about involuntary enteral feedings should arise from collaboration between psychiatry , medicine, and pt's decision maker * Palliative care will continue to follow during hospital course as condition evolves to assist pt/decision maker with understanding of medical conditions, benefits/burdens of treatment options, clarification of goals of treatment, and will assist with symptoms of palliative concern Time Spent Total Floor Time (mins): 75 (chart review, PE, discussion with pt, discussion with RN) Thank you for the opportunity to participate in the care of Ms. Jones. Attestation To help prompt me to consider important information that might be impacting today's encounter and assessment, information from prior notes written by myself or my colleagues may have been "brought forward" into today's note. My signature on this note, however, is an attestation that I personally performed the exam, history, and/or decision-making noted today, and, unless otherwise indicated, the interactions with patient, family, and staff as well as the review of records all occurred today. I also attest that the listed assessment and stated plan reflect my best clinical judgment today based on the combination of historical information, prior notes, and today's exam/ interactions. When time spent is documented, it refers only to time spent today by the signer, or if indicated, combined time spent today by collaborating physician/nurse practitioner. Audra Bowling Jan 30, 2018 15:35
[2018-01-30 15:39] LABS: BICARBONATE 25.7 MEQ/L (21.0-32.0); CALCIUM 9.2 MG/DL (8.5-10.1); CREATININE 0.71 MG/DL (0.50-1.00); MAGNESIUM 2.2 MG/DL (1.5-2.5); PHOSPHORUS 2.9 MG/DL (2.5-4.9)
[2018-01-30 18:54] VITALS: BP 118/59; PULSE 69; RESP 17; TEMP 97.3; O2SAT 96
[2018-01-30] MEDS: LORazepam 2 MG TAB PO SCH (21:46)
[2018-01-31] MEDS: LORazepam 2 MG TAB PO SCH ×3 (05:58→21:58)
[2018-01-31 06:47] VITALS: BP 120/64; PULSE 74; RESP 16; TEMP 98.6; O2SAT 95
[2018-01-31 07:37] LABS: BICARBONATE 26.3 MEQ/L (21.0-32.0); CREATININE 0.7 MG/DL (0.50-1.00)
[2018-01-31] MEDS ORDERED: REMOVE OLD PATCH T-DERMAL SCH (09:00)
[2018-01-31] MEDS: HEPARIN SODIUM - SQ 10,000 UNITS/ML VIAL SQ SCH ×2 (09:00→21:59)
[2018-01-31] MEDS: CEFUROXIME AXETIL 250 MG TAB PO SCH ×2 (09:53→21:00)
[2018-01-31] MEDS: MULTIVITAMIN TAB PO SCH (09:53)
[2018-01-31] MEDS: MEGESTROL ACETATE SUSP 400 MG/10 ML CUP PO SCH (09:54)
[2018-01-31] MEDS: POLYETHYLENE GLYCOL 17 GM PKG PO PRN (09:54)
[2018-01-31] MEDS: ASPIRIN EC 81 MG TABEC PO SCH (09:54)
[2018-01-31] MEDS: DIVALPROEX DR 500 MG TABEC PO SCH ×2 (09:54→21:57)
[2018-01-31] MEDS: ZIPRASIDONE HCL 40 MG CAP PO SCH ×2 (09:54→18:00)
[2018-01-31] MEDS: amLODIPine BESYLATE 5 MG TAB PO SCH (09:54)
[2018-01-31] MEDS: DOCUSATE SODIUM 50 MG/SENNA 8.6 MG TAB PO SCH (09:54)
[2018-01-31] MEDS: THIAMINE HCL 100 MG TAB PO SCH (09:54)
--- NOTE | 2018-01-31 10:32 | HHI.PYPN ---
Subjective Chief Complaint: Depression, self-care deficit Remarks Patient seen for follow, chart reviewed. Discussion nursing staff reported the patient walking around, visited with , slept well. Patient was found sitting up eating breakfast noted to have some psychomotor retardation but answering questions appropriately. Patient states that she is feeling "okay" but that this morning was feeling "crummy". Patient reports having slept well, having some constipation but denying any perceptual disturbances or suicidal homicidal ideations at this time. Review of Systems Except as stated in HPI: all other systems reviewed are Neg Mental Status Examination Appearance: Appropriate Consciousness: Alert Orientation: x4 Motor Activity: Other (Extremely psychomotor slowed) Speech: Hesitant, Slow Language: Adequate Fund of Knowledge: Adequate Attention and Concentration: Inadequate Memory: Unremarkable (Grossly intact on clinical exam) Mood: Other ("Okay") Affect: Other (Dysphoric) Thought Process & Associations: Other (Slowed) Thought Content: Appropriate Hallucination Type: None Delusion Type: None Suicidal Ideation: No (Unreliable to contract for safety) Suicidal Plan: No Suicidal Intention: No Homicidal Ideation: No Homicidal Plan: No Homicidal Intention: No Insight: Fair Judgment: Impulsive Results Labs Test 01/30/18 14:33 01/31/18 06:41 Blood Urea Nitrogen 10 MG/DL 11 MG/DL Creatinine 0.71 MG/DL 0.70 MG/DL Random Glucose 95 MG/DL 90 MG/DL Calcium Level 9.2 MG/DL 9.0 MG/DL Phosphorus Level 2.9 MG/DL Magnesium Level 2.2 MG/DL Sodium Level 139 MEQ/L 139 MEQ/L Potassium Level 3.4 MEQ/L 3.0 MEQ/L Chloride Level 102 MEQ/L 103 MEQ/L Carbon Dioxide Level 25.7 MEQ/L 26.3 MEQ/L Anion Gap 11 MEQ/L 10 MEQ/L Estimat Glomerular Filtration Rate 81 ML/MIN 83 ML/MIN Date/Time Source Procedure Growth Status 01/21/18 15:00 Urine Random Urine Urine Culture - Final 50-100,000 CFU/ML MIXED BECKI... Complete Vitals/IOs Vital Signs Date Time Temp Pulse Resp B/P (MAP) Pulse Ox O2 Delivery O2 Flow Rate FiO2 01/31/18 06:47 98.6 74 16 120/64 (82) 95 Intake and Output 01/31/18 01/31/18 02/01/18 08:00 16:00 00:00 Intake Total 0 ml 180 ml Balance 0 ml 180 ml Assessment & Plan Problem List: (1) Bipolar I disorder with catatonia ICD Codes: F31.9 - Bipolar disorder, unspecified; F06.1 - Catatonic disorder due to known physiological condition Assessment & Plan Patient this time noted with some psychomotor retardation, has been awake and alert and interacting appropriately. Patient to continue current treatment. Continue to monitor mood and behavior. Discharge planning a progress. Justification for Cont. Inpt. At risk for further decompensation if at lower level of care Request HC Surrog/Guard Advoc?: Yes Michael Freire MD Jan 31, 2018 10:32
[2018-01-31] MEDS ORDERED: POTASSIUM CHLORIDE 10 MEQ CONTROLLED RELEASE TAB PO ONE (11:00)
[2018-01-31] MEDS ORDERED: LORazepam 2 MG/ML VIAL IV PUSH ONE (14:00)
--- NOTE | 2018-01-31 14:15 | HHI.PR ---
Subjective Remarks Follow-up on patient with hypertension, poor oral intake, possible UTI. Patient seen and examined. Patient is very tired but per nursing she is a little improved and has been more interactive. She was up earlier today walking around. She ate more of her breakfast today. No acute issues noted. Objective Vitals Vital Signs Date Time Temp Pulse Resp B/P (MAP) Pulse Ox O2 Delivery O2 Flow Rate FiO2 01/31/18 06:47 98.6 74 16 120/64 (82) 95 01/30/18 18:54 97.3 69 17 118/59 (78) 96 I/O 01/30/18 01/30/18 01/30/18 01/31/18 01/31/18 01/31/18 07:00 15:00 23:00 07:00 15:00 23:00 Intake Total 0 ml 240 ml 420 ml 0 ml 180 ml Balance 0 ml 240 ml 420 ml 0 ml 180 ml Intake Oral 0 ml 240 ml 420 ml 0 ml 180 ml # Voids 1 0 0 Result Diagram: 01/27/18 0954 01/31/18 0641 Objective Remarks GENERAL: Well-nourished, well-developed elderly female patient in NAD. Sleeping soundly. Appears comfortable. SKIN: Warm and dry. No rash. HEENT: Normocephalic. Atraumatic. Airway patent. NECK: Supple. Trachea midline. CARDIOVASCULAR: Regular rate and rhythm. 3/6 systolic ejection murmur noted. RESPIRATORY: Nonlabored. Clear to auscultation. Breath sounds equal bilaterally. GASTROINTESTINAL: Abdomen soft, non-tender, nondistended. Normoactive bowel sounds x4. MUSCULOSKELETAL: No obvious deformities. Extremities without clubbing, cyanosis , or edema. NEUROLOGICAL: Lethargic. Moving extremities spontaneously. Procedures None A/P Assessment and Plan 72-year-old female who reports a past medical history significant for hypertension, hypothyroidism following thyroidectomy due to cancer, rheumatoid arthritis, heart murmur, bipolar disorder, depression, and fibromyalgia who presented to the emergency department accompanied by her on 01/21 from patient's doctor's office. Patient had apparently had an 18 pound weight loss along with decreased appetite which prompted referral to the emergency department. [facility] has been consulted to assist with management of medical condition including possible UTI and status post thyroidectomy. Bipolar disorder/depression -Continue treatment plan per psychiatry -Cardiology has cleared for antipsychotics with followup EKG to evaluate QTc. Repeat EKG obtained 01/29, QTc 426. - is serving as healthcare surrogate Suspected UTI UA collected in the ED was positive for occult blood, leukocytes esterase, and bacteria. Culture grew 50-100,00 mixed rafael most likely contaminated -Was given one-time dose of Cipro in the ER,culture was likely contaminated. Avoid fluoroquinolones due to borderline prolonged QTc -psychosocial rehabilitation counselor reports foul smelling urine. Repeat UA with proteinuria, small blood, greater than 4.0 urobilinogen, 23 red blood cells, culture not indicated -Recommend patient follow-up as outpatient with PCP/urology for further evaluation of urobilinogen and hematuria -Patient partially treated with Ceftin, will complete treatment Hypothyroidism s/p thyroidectomy secondary to cancer TSH 15.2, free T3 1.79, free T4 1.46 -TSH elevated likely due to noncompliance with medications -Synthroid resumed, check repeat TSH/T4 in 6 weeks Hypertension, uncontrolled secondary to patient's noncompliance with medications at home -Continue on Norvasc 5 mg daily -Vasotec IV prn -Continue to monitor BP and adjust treatment accordingly Constipation -Likely secondary to poor p.o. intake in combination with dehydration -Continue stool softener, encourage oral hydration -Give dose of Miralax Weight loss, Poor oral intake Possibly linked to bipolar depression leading to poor p.o. intake -Medication adjustments per psychiatry -Continue on Megace -Dresser Tender consulted, calorie count completed, inadequate p.o. intake. Recommending tube feedings, checking daily electrolytes, multivitamin and thiamine daily. Discussed with who would like to speak to his later today before deciding on how to proceed forward. Note, patient received just her third dose of Megace today. Palliative care following, appreciate assistance. Appetite today per nurse has improved some. Will we will plan to repeat calorie count starting Friday. -strict I&Os -encourage fluid intake -monitor BS with accucheks Hypokalemia K 3.0 -Oral repletion ordered. Repeat BMP in a.m. to monitor response DVT prophylaxis-ambulation, Heparin sq - SCD/MADAY hose ordered as patient intermittently refusing heparin Bianca Easley Jan 31, 2018 14:15
[2018-01-31 18:23] VITALS: BP 134/79; PULSE 84; RESP 14; TEMP 97.9; O2SAT 96
[2018-02-01] MEDS: LORazepam 2 MG TAB PO SCH ×2 (05:00→13:00)
[2018-02-01] MEDS: LEVOTHYROXINE SODIUM 125 MCG TAB PO SCH ×2 (05:14→07:23)
[2018-02-01 06:14] VITALS: BP 109/66; PULSE 62; RESP 16; TEMP 97.4; O2SAT 95
[2018-02-01] MEDS: HEPARIN SODIUM - SQ 10,000 UNITS/ML VIAL SQ SCH ×2 (09:00→21:47)
[2018-02-01] MEDS: ZIPRASIDONE HCL 40 MG CAP PO SCH ×2 (09:24→18:00)
[2018-02-01] MEDS: MULTIVITAMIN TAB PO SCH (09:24)
[2018-02-01] MEDS: ASPIRIN EC 81 MG TABEC PO SCH (09:25)
[2018-02-01] MEDS: DOCUSATE SODIUM 50 MG/SENNA 8.6 MG TAB PO SCH (09:25)
[2018-02-01] MEDS: CEFUROXIME AXETIL 250 MG TAB PO SCH (09:25)
[2018-02-01] MEDS: amLODIPine BESYLATE 5 MG TAB PO SCH (09:25)
[2018-02-01] MEDS: THIAMINE HCL 100 MG TAB PO SCH (09:25)
[2018-02-01] MEDS: MEGESTROL ACETATE SUSP 400 MG/10 ML CUP PO SCH (09:26)
[2018-02-01] MEDS: DIVALPROEX DR 500 MG TABEC PO SCH ×2 (09:26→21:48)
[2018-02-01 12:19] LABS: BICARBONATE 24.8 MEQ/L (21.0-32.0); CALCIUM 9.1 MG/DL (8.5-10.1); CREATININE 0.89 MG/DL (0.50-1.00)
--- NOTE | 2018-02-01 12:28 | HHI.PR ---
Subjective Remarks Follow-up on patient with hypertension, poor oral intake, possible UTI. Patient seen and examined. Patient more alert. Sitting up eating lunch. States that she has been trying to eat and drink more. She denies any acute medical complaints. She reports a small bowel movement yesterday. Discussed with nursing staff who states patient has been more ambulatory and reports her eating has improved some she is now consuming Objective Vitals Vital Signs Date Time Temp Pulse Resp B/P (MAP) Pulse Ox O2 Delivery O2 Flow Rate FiO2 02/01/18 06:14 97.4 62 16 109/66 (80) 95 01/31/18 18:23 97.9 84 14 134/79 (97) 96 I/O 01/31/18 01/31/18 01/31/18 02/01/18 02/01/18 02/01/18 07:00 15:00 23:00 07:00 15:00 23:00 Intake Total 0 ml 180 ml 540 ml Balance 0 ml 180 ml 540 ml Intake Oral 0 ml 180 ml 540 ml # Voids 0 0 1 Result Diagram: 02/01/18 1037 Objective Remarks GENERAL: Well-nourished, well-developed elderly female patient in NAD. Sleeping soundly. Appears comfortable. SKIN: Warm and dry. No rash. HEENT: Normocephalic. Atraumatic. Airway patent. NECK: Supple. Trachea midline. CARDIOVASCULAR: Regular rate and rhythm. 3/6 systolic ejection murmur noted. RESPIRATORY: Nonlabored. Clear to auscultation. Breath sounds equal bilaterally. GASTROINTESTINAL: Abdomen soft, non-tender, nondistended. Normoactive bowel sounds x4. MUSCULOSKELETAL: No obvious deformities. Extremities without clubbing, cyanosis , or edema. NEUROLOGICAL: Lethargic. Moving extremities spontaneously. Procedures None A/P Assessment and Plan 72-year-old female who reports a past medical history significant for hypertension, hypothyroidism following thyroidectomy due to cancer, rheumatoid arthritis, heart murmur, bipolar disorder, depression, and fibromyalgia who presented to the emergency department accompanied by her on 01/21 from patient's doctor's office. Patient had apparently had an 18 pound weight loss along with decreased appetite which prompted referral to the emergency department. [facility] has been consulted to assist with management of medical condition including possible UTI and status post thyroidectomy. Bipolar disorder/depression -Continue treatment plan per psychiatry -Cardiology has cleared for antipsychotics with followup EKG to evaluate QTc. Repeat EKG obtained 01/29, QTc 426. - is serving as healthcare surrogate Suspected UTI UA collected in the ED was positive for occult blood, leukocytes esterase, and bacteria. Culture grew 50-100,00 mixed rafael most likely contaminated -Was given one-time dose of Cipro in the ER,culture was likely contaminated. Avoid fluoroquinolones due to borderline prolonged QTc -geropsychologist reports foul smelling urine. Repeat UA with proteinuria, small blood, greater than 4.0 urobilinogen, 23 red blood cells, culture not indicated -Recommend patient follow-up as outpatient with PCP/urology for further evaluation of urobilinogen and hematuria -Completed treatment with Ceftin Hypothyroidism s/p thyroidectomy secondary to cancer TSH 15.2, free T3 1.79, free T4 1.46 -TSH elevated likely due to noncompliance with medications -Synthroid resumed, check repeat TSH/T4 in 6 weeks Hypertension, uncontrolled secondary to patient's noncompliance with medications at home BP currently controlled -Continue on Norvasc 5 mg daily -Vasotec IV prn -Continue to monitor BP and adjust treatment accordingly Constipation +BM -Likely secondary to poor p.o. intake in combination with dehydration -Continue stool softener, encourage oral hydration Weight loss, Poor oral intake Possibly linked to bipolar depression leading to poor p.o. intake -Medication adjustments per psychiatry -Continue on Megace -Feller Operator consulted, calorie count completed, inadequate p.o. intake. Recommending tube feedings, checking daily electrolytes, multivitamin and thiamine daily. Discussed with who would like to speak to his later today before deciding on how to proceed forward. Note, patient received just her third dose of Megace today. Palliative care following, appreciate assistance. Appetite today per nurse has improved some. Will we will plan to repeat calorie count starting Friday. -strict I&Os -encourage fluid intake -monitor BS with accucheks Hypokalemia, persistent despite repletion K 2.8 Mag level 2.2 01/30 -KCL IV and po repletion ordered -repeat K level at 1900 -Repeat BMP and mag level in a.m. DVT prophylaxis-ambulation, Heparin sq - SCD/MADAY hose ordered as patient intermittently refusing heparin Bianca Easley Feb 01, 2018 12:28
[2018-02-01] MEDS ORDERED: POTASSIUM CHLORIDE 10 MEQ CONTROLLED RELEASE TAB PO ONE (14:15)
[2018-02-01] MEDS ORDERED: POTASSIUM CHLOR 20 MEQ PREMIX 100 ML IV SCH (14:15)
--- NOTE | 2018-02-01 17:15 | HHI.PYPN ---
Subjective Chief Complaint: Depression, self-care deficit Remarks Patient seen for follow, chart reviewed. Discussion nursing staff reported the patient had been alert and talking and ambulating prior to Ativan dose and now reporting feeling very sedated. Patient was found lying hospital bed with at bedside but interviewed alone. Patient states that she is feeling "tired" stating that she is trying to eat and drink more as she is aware that she had poor p.o. intake previously. She also reports having some small bowel movement this morning but stated that she having some constipation. Discussion about having patient continue Ativan was reviewed with patient due to her previous catatonic symptoms but states that she is feeling too lethargic when she takes medication. Separator Tender also spoke with patient's who also had similar concerns of her not being able to eat more but is conscious of the treatment to treat the catatonia but feels that she has improved since. Review of Systems Except as stated in HPI: all other systems reviewed are Neg Mental Status Examination Appearance: Appropriate Consciousness: Somnolent (Slightly) Orientation: x4 Motor Activity: Other (Extremely psychomotor slowed) Speech: Hesitant, Slow Language: Adequate Fund of Knowledge: Adequate Attention and Concentration: Inadequate Memory: Unremarkable (Grossly intact on clinical exam) Mood: Other ("Okay") Affect: Other (Dysphoric) Thought Process & Associations: Other (Slowed) Thought Content: Appropriate Hallucination Type: None Delusion Type: None Suicidal Ideation: No (Unreliable to contract for safety) Suicidal Plan: No Suicidal Intention: No Homicidal Ideation: No Homicidal Plan: No Homicidal Intention: No Insight: Fair Judgment: Impulsive Results Labs Labs reviewed Test 02/01/18 10:37 Blood Urea Nitrogen 11 MG/DL Creatinine 0.89 MG/DL Random Glucose 151 MG/DL Calcium Level 9.1 MG/DL Sodium Level 138 MEQ/L Potassium Level 2.8 MEQ/L Chloride Level 103 MEQ/L Carbon Dioxide Level 24.8 MEQ/L Anion Gap 10 MEQ/L Estimat Glomerular Filtration Rate 63 ML/MIN Date/Time Source Procedure Growth Status 01/21/18 15:00 Urine Random Urine Urine Culture - Final 50-100,000 CFU/ML MIXED BECKI... Complete Vitals/IOs Vital Signs Date Time Temp Pulse Resp B/P (MAP) Pulse Ox O2 Delivery O2 Flow Rate FiO2 02/01/18 06:14 97.4 62 16 109/66 (80) 95 Assessment & Plan Problem List: (1) Bipolar I disorder with catatonia ICD Codes: F31.9 - Bipolar disorder, unspecified; F06.1 - Catatonic disorder due to known physiological condition Assessment & Plan Patient this time continues to be alert and and responsive to interview. Patient had a noted to be ambulating and interactive verbally with staff and . We will consider decreasing Ativan 1.5 mg every 8 hours as patient states she is feeling too lethargic with this current dose. We will continue to monitor mood and behavior. Continue to encourage patient to maintain adequate p.o. intake. Discharge planning in progress. Justification for Cont. Inpt. At risk for further decompensation if at lower level of care Request HC Surrog/Guard Advoc?: Yes Michael Freire MD Feb 01, 2018 17:15
[2018-02-01 18:20] VITALS: BP 112/63; PULSE 75; RESP 17; TEMP 98.3; O2SAT 95
[2018-02-01] MEDS: LORazepam 0.5 MG TAB PO SCH (21:47)
[2018-02-02] MEDS: LORazepam 0.5 MG TAB PO SCH ×2 (05:00→05:57)
[2018-02-02 05:03] VITALS: BP 98/61; PULSE 69; RESP 15; TEMP 97.4; O2SAT 95
[2018-02-02] MEDS: DOCUSATE SODIUM 50 MG/SENNA 8.6 MG TAB PO SCH (08:49)
[2018-02-02] MEDS: ASPIRIN EC 81 MG TABEC PO SCH (08:49)
[2018-02-02] MEDS: MEGESTROL ACETATE SUSP 400 MG/10 ML CUP PO SCH (08:49)
[2018-02-02] MEDS: MULTIVITAMIN TAB PO SCH (08:49)
[2018-02-02] MEDS: THIAMINE HCL 100 MG TAB PO SCH (08:49)
[2018-02-02] MEDS: ZIPRASIDONE HCL 40 MG CAP PO SCH ×2 (08:50→17:58)
[2018-02-02] MEDS: DIVALPROEX DR 500 MG TABEC PO SCH ×2 (08:50→20:37)
[2018-02-02] MEDS: HEPARIN SODIUM - SQ 10,000 UNITS/ML VIAL SQ SCH ×2 (08:50→20:37)
[2018-02-02] MEDS: amLODIPine BESYLATE 5 MG TAB PO SCH (08:51)
[2018-02-02 12:20] LABS: BICARBONATE 24.2 MEQ/L (21.0-32.0); CREATININE 0.83 MG/DL (0.50-1.00); MAGNESIUM 2.4 MG/DL (1.5-2.5)
[2018-02-02] MEDS ORDERED: POLYETHYLENE GLYCOL 17 GM PKG PO ONE (12:45)
[2018-02-02] MEDS ORDERED: POTASSIUM CHLORIDE 10 MEQ CONTROLLED RELEASE TAB PO ONE (12:45)
--- NOTE | 2018-02-02 12:54 | HHI.PR ---
Subjective Remarks Follow-up on patient with hypertension, poor oral intake, possible UTI. Patient seen and examined. Patient's affect remains flat but she is more communicative today. She states that she has been eating more. She reports small bowel movement yesterday but is requesting something to help her with constipation. She denies any fever or chills. She denies any nausea or vomiting. She denies any chest pain or shortness of breath. Discussed with nursing staff, no acute issues noted. Objective Vitals Vital Signs Date Time Temp Pulse Resp B/P (MAP) Pulse Ox O2 Delivery O2 Flow Rate FiO2 02/02/18 05:03 97.4 69 15 98/61 (73) 95 02/01/18 18:20 98.3 75 17 112/63 (79) 95 I/O 02/01/18 02/01/18 02/01/18 02/02/18 02/02/18 02/02/18 07:00 15:00 23:00 07:00 15:00 23:00 Intake Total 420 ml 60 ml 480 ml Balance 420 ml 60 ml 480 ml Intake Oral 420 ml 60 ml 480 ml # Voids 1 3 1 # Bowel Movements 1 Result Diagram: 02/02/18 1115 Objective Remarks GENERAL: Well-nourished, well-developed elderly female patient in NAD. Awake and alert. SKIN: Warm and dry. No rash. HEENT: Normocephalic. Atraumatic. EOMI. sclera anicteric. Airway patent. MMM. NECK: Supple. Trachea midline. CARDIOVASCULAR: Regular rate and rhythm. 3/6 systolic ejection murmur noted. RESPIRATORY: Nonlabored. Clear to auscultation. Breath sounds equal bilaterally. GASTROINTESTINAL: Abdomen soft, non-tender, nondistended. Normoactive bowel sounds x4. MUSCULOSKELETAL: No obvious deformities. Extremities without clubbing, cyanosis , or edema. NEUROLOGICAL: Awake and alert. Moving extremities spontaneously. No focal neurologic finding. PSYCHIATRIC: Flat affect. Depressed mood. Procedures None A/P Assessment and Plan 72-year-old female who reports a past medical history significant for hypertension, hypothyroidism following thyroidectomy due to cancer, rheumatoid arthritis, heart murmur, bipolar disorder, depression, and fibromyalgia who presented to the emergency department accompanied by her on 01/21 from patient's doctor's office. Patient had apparently had an 18 pound weight loss along with decreased appetite which prompted referral to the emergency department. [facility] has been consulted to assist with management of medical condition including possible UTI and status post thyroidectomy. Bipolar disorder/depression -Continue treatment plan per psychiatry -Cardiology has cleared for antipsychotics with followup EKG to evaluate QTc. Repeat EKG obtained 01/29, QTc 426. - is serving as healthcare surrogate Hypothyroidism s/p thyroidectomy secondary to cancer TSH 15.2, free T3 1.79, free T4 1.46 -TSH elevated likely due to noncompliance with medications -Synthroid resumed, check repeat TSH/T4 in 6 weeks Hypertension, now hypotensive -Decrease Norvasc dose to 2.5 mg daily with hold parameters. May need to discontinue altogether. -Vasotec IV prn -Continue to monitor BP and adjust treatment accordingly Weight loss, Poor oral intake Possibly linked to bipolar depression leading to poor p.o. intake -Medication adjustments per psychiatry -Continue on Megace -Global Human Resources Director consulted, calorie count completed, inadequate p.o. intake. Recommending tube feedings, checking daily electrolytes, multivitamin and thiamine daily. Patient had only been on third dose of Megace when calorie count was completed. Now that patient's p.o. intake has improved, will request dietitian repeat calorie count. -strict I&Os -encourage fluid intake -monitor BS with accucheks -blood sugars have been well controlled, no episodes of hypoglycemia. Will discontinue Accu-Cheks. Hypokalemia, persistent despite repletion K 2.8. Responded well to p.o. and IV repletion. K 3.4 today Mag level 2.4 -give 40meq K x 1 dose now. Begin daily KCL 20meq daily. -Repeat BMP in am Constipation +BM, small per patient report -Likely secondary to poor p.o. intake in combination with dehydration -Continue stool softener, encourage oral hydration -dose of Miralax x 1 DVT prophylaxis-ambulation, Heparin sq - SCD/MADAY santamariae ordered as patient intermittently refusing heparin Bianca Easley Feb 02, 2018 12:54
--- NOTE | 2018-02-02 13:50 | HHI.PYPN ---
Subjective Chief Complaint: Depression, self-care deficit Remarks The patient was seen today for second reevaluation. The patient was discussed with nurse in charge. Psychiatric evaluation the patient is found sleeping, she seems to be very sedated, she was able to be aroused state that she feels okay, but falls asleep immediately. The patient has been eating, taking her medications p.o., more communicative, but very sedated. Review of Systems Except as stated in HPI: all other systems reviewed are Neg Mental Status Examination Appearance: Appropriate Consciousness: Somnolent (Slightly) Orientation: x4 Motor Activity: Other (Extremely psychomotor slowed) Speech: Hesitant, Slow Language: Adequate Fund of Knowledge: Adequate Attention and Concentration: Inadequate Memory: Unremarkable (Grossly intact on clinical exam) Mood: Other ("Okay") Affect: Other (Dysphoric) Thought Process & Associations: Other (Slowed) Thought Content: Appropriate Hallucination Type: None Delusion Type: None Suicidal Ideation: No (Unreliable to contract for safety) Suicidal Plan: No Suicidal Intention: No Homicidal Ideation: No Homicidal Plan: No Homicidal Intention: No Insight: Fair Judgment: Impulsive Results Labs Test 02/01/18 19:20 02/02/18 11:15 Potassium Level 3.6 MEQ/L 3.4 MEQ/L Blood Urea Nitrogen 8 MG/DL Creatinine 0.83 MG/DL Random Glucose 128 MG/DL Calcium Level 9.0 MG/DL Magnesium Level 2.4 MG/DL Sodium Level 137 MEQ/L Chloride Level 102 MEQ/L Carbon Dioxide Level 24.2 MEQ/L Anion Gap 11 MEQ/L Estimat Glomerular Filtration Rate 68 ML/MIN Date/Time Source Procedure Growth Status 01/21/18 15:00 Urine Random Urine Urine Culture - Final 50-100,000 CFU/ML MIXED BECKI... Complete Vitals/IOs Vital Signs Date Time Temp Pulse Resp B/P (MAP) Pulse Ox O2 Delivery O2 Flow Rate FiO2 02/02/18 05:03 97.4 69 15 98/61 (73) 95 Intake and Output 02/02/18 02/02/18 02/03/18 08:00 16:00 00:00 Intake Total 540 ml 240 ml Balance 540 ml 240 ml Assessment & Plan Problem List: (1) Bipolar I disorder with catatonia ICD Codes: F31.9 - Bipolar disorder, unspecified; F06.1 - Catatonic disorder due to known physiological condition Assessment & Plan: Today the patient seems to be quite sedated. We will discontinue Ativan to 1 mg every 8 hours. Watch closely for symptoms of catatonia. Assessment & Plan Estimated LOS: days Justification for Cont. Inpt. The patient has a very high risk to decompensate at the lower level of care. Request HC Surrog/Guard Advoc?: Yes Rubio Mancera MD Feb 02, 2018 13:50
[2018-02-02 18:00] VITALS: BP 110/56; PULSE 82; RESP 15; TEMP 97.6; O2SAT 96
[2018-02-02] MEDS: LORazepam 1 MG TAB PO SCH (20:37)
[2018-02-02] MEDS: MAGNESIUM HYDROXIDE SUSP 30 ML CUP PO PRN (20:45)
[2018-02-03 05:35] VITALS: BP 113/62; PULSE 63; RESP 15; TEMP 97.9; O2SAT 95
[2018-02-03] MEDS: LEVOTHYROXINE SODIUM 125 MCG TAB PO SCH (06:08)
[2018-02-03] MEDS: LORazepam 1 MG TAB PO SCH ×3 (06:08→21:06)
[2018-02-03] MEDS: POLYETHYLENE GLYCOL 17 GM PKG PO PRN (06:20)
[2018-02-03] MEDS: DIVALPROEX DR 500 MG TABEC PO SCH ×2 (08:25→21:06)
[2018-02-03] MEDS: MULTIVITAMIN TAB PO SCH (08:25)
[2018-02-03] MEDS: ASPIRIN EC 81 MG TABEC PO SCH (08:25)
[2018-02-03] MEDS: ZIPRASIDONE HCL 40 MG CAP PO SCH ×2 (08:25→17:35)
[2018-02-03] MEDS: DOCUSATE SODIUM 50 MG/SENNA 8.6 MG TAB PO SCH ×2 (08:25→21:08)
[2018-02-03] MEDS: amLODIPine BESYLATE 5 MG TAB PO SCH (08:25)
[2018-02-03] MEDS: POTASSIUM CHLORIDE 20 MEQ CONTROLLED RELEASE TAB PO SCH (08:25)
[2018-02-03] MEDS: MEGESTROL ACETATE SUSP 400 MG/10 ML CUP PO SCH (08:25)
[2018-02-03] MEDS: THIAMINE HCL 100 MG TAB PO SCH (08:25)
[2018-02-03] MEDS: HEPARIN SODIUM - SQ 10,000 UNITS/ML VIAL SQ SCH ×2 (08:26→21:07)
--- NOTE | 2018-02-03 10:51 | HHI.HCPN ---
Reason for visit a. To assist with evaluation and management of symptoms including: anorexia , depression b. To assist medical decision maker(s) with: better understanding of current medical conditions; weighing benefits/burdens of medical treatment options; making medical treatment decisions. Subjective/Interval History INTERVAL NOTE: The Ativan challenge seems to have helped the catatonia, but she did have some excessive sedation, now less troublesome as the Ativan dose has been decreased. She is now alert, aware, ambulating with a walker at times, and reportedly eating better. In discussion with the patient about food consumption, she says "I think I have gained back a couple pounds." Her only complaint is that she believes she has been constipated. In discussing this with the patient's nurse, they note they have given her MOM, MiraLAX, prune juice. . Advance Directives Living Will: Never completed Health Care Surrogate: Never completed Durable Power of Wood Heel Flap Trimmer: Never completed Objective Vital Signs Date Time Temp Pulse Resp B/P (MAP) Pulse Ox O2 Delivery O2 Flow Rate FiO2 02/03/18 05:35 97.9 63 15 113/62 (79) 95 02/02/18 18:00 97.6 82 15 110/56 (74) 96 Intake & Output 02/03/18 02/03/18 07:00 19:00 Intake Total 300 ml 360 ml Balance 300 ml 360 ml Intake Oral 300 ml 360 ml Physical Exam CONSTITUTIONAL/GENERAL: This is an adequately nourished patient, in no apparent distress. Alert; flat affect NECK: Trachea midline. Supple CARDIOVASCULAR: RRR +murmur. No JVD. RESPIRATORY/CHEST: Symmetric, shallow, unlabored respirations. Clear to auscultation. Breath sounds equal bilaterally. GASTROINTESTINAL: Abdomen soft, non-tender, nondistended. No palpable masses. No guarding. Bowel sounds present. MUSCULOSKELETAL: Extremities without clubbing, cyanosis, or edema. No mottling or clubbing. NEUROLOGICAL: Definitely more alert, sitting up on the side of the bed, moves all extremities PSYCHIATRIC: flat affect, speech is clear . Diagnostic Tests Laboratory Laboratory Tests Test 02/01/18 10:37 02/01/18 19:20 02/02/18 11:15 Blood Urea Nitrogen 11 MG/DL (7-18) 8 MG/DL (7-18) Creatinine 0.89 MG/DL (0.50-1.00) 0.83 MG/DL (0.50-1.00) Random Glucose 151 MG/DL (74-106) 128 MG/DL (74-106) Calcium Level 9.1 MG/DL (8.5-10.1) 9.0 MG/DL (8.5-10.1) Sodium Level 138 MEQ/L (136-145) 137 MEQ/L (136-145) Potassium Level 2.8 MEQ/L (3.5-5.1) 3.6 MEQ/L (3.5-5.1) 3.4 MEQ/L (3.5-5.1) Chloride Level 103 MEQ/L (98-107) 102 MEQ/L (98-107) Carbon Dioxide Level 24.8 MEQ/L (21.0-32.0) 24.2 MEQ/L (21.0-32.0) Anion Gap 10 MEQ/L (5-15) 11 MEQ/L (5-15) Estimat Glomerular Filtration Rate 63 ML/MIN (>89) 68 ML/MIN (>89) Magnesium Level 2.4 MG/DL (1.5-2.5) Result Diagram: 02/02/18 1115 Assessment and Plan Disease Oriented Problem List: (1) Weight loss Comment: loss 18 lbs in 1 month (2) Bipolar disorder, current episode depressed, severe, without psychotic features (3) Bipolar I disorder with catatonia (4) Hypothyroidism Comment: thyroid ca 2006 s/p radioactive iodine, thyroidectomy Symptom Scale: (1) Depression 0-10 Scale: Unable to quantify (2) Decreased oral intake 0-10 Scale: Unable to quantify Pertinent Non-Medical Issues Psychosocial: Living at home with , daughter. Retired. Spiritual: Che[employer]ism, attends [employer] Legal: Bailey act 01/29, appointed Ilya as HCS. Ethical issues impacting care: Pt Lynn acted and incapacitated to make her own decisions at this time . Important Contacts Ilya [phone] Brother Jeannie [place] Prognosis 72 year old female with hx bipolar disorder, depression, hypothyroid. She had 2 psychiatric admission in 2006 for bipolar symptoms, does not appear to have had any since. She has lost 18 lbs in the last month, reportedly depressed r/t external stressor. Eating little, 25% of meals and nutrition has recommended TF. Noted to have some QT prolongation by cardiology but was cleared for antipsychotic meds. Does not appear to have any severe underlying chronic or terminal illnesses. Should she continue to eat little and remain depressed and sedentary, she is at risk for continued decline, debility, and setbacks. Prognosis dependent response to treatment. Code Status: Full Code Plan * CODE STATUS - full code * LEGAL DECISION MAKER - per 01/29 Bailey Act, Ilya is appointed as proxy decision maker * GOALS -patient's goals are to continue treatment, and improve enough to get back home with her . * SYMPTOMS * decreased PO intake -improved since initiation of Ativan * Her psychiatric difficulties are being managed via psychiatry * We do not identify a serious chronic or terminal illness. Decisions about involuntary enteral feedings should arise from collaboration between psychiatry , medicine, and pt's decision maker * Palliative care will follow the patient only PRN now, as her goals seem clear and there are no troublesome symptoms to manage. Let us know if any additional assistance is required. . Time Spent Total Floor Time (mins): 36 Face to Face Time (mins): 15 >50% Counseling/Coord of Care: Yes (d/w Dr. Freire, pt's RN, and hospitalists' [employer] (MP)) Attestation To help prompt me to consider important information that might be impacting today's encounter and assessment, information from prior notes written by myself or my colleagues may have been "brought forward" into today's note. My signature on this note, however, is an attestation that I personally performed the exam, history, and/or decision-making noted today, and, unless otherwise indicated, the interactions with patient, family, and staff as well as the review of records all occurred today. I also attest that the listed assessment and stated plan reflect my best clinical judgment today based on the combination of historical information, prior notes, and today's exam/ interactions. When time spent is documented, it refers only to time spent today by the signer, or if indicated, combined time spent today by collaborating physician/nurse practitioner. Yodit García MD Feb 03, 2018 10:51
--- NOTE | 2018-02-03 11:35 | HHI.PYPN ---
Subjective Chief Complaint: Depression, self-care deficit Remarks Patient seen for follow, chart reviewed. Discussion nursing staff reported the patient has a compliant medications, eating better and has been seen ambulating more. Patient was found ambulating from the restroom back to her bed noted B, cooperative. Patient with adequate eye contact and interacting appropriately with continued to have some noted psychomotor retardation. Patient states she is feeling "okay" continues report feeling constipated and preservative somewhat on this. Patient states that she had visited by her who continues to hope that she will continue to improve. Patient states that she is having some difficulty with sleep but feels rested this morning. Patient also reports trying to eat more but worried about gaining significant amounts of weight. Review of Systems Except as stated in HPI: all other systems reviewed are Neg Mental Status Examination Appearance: Appropriate Consciousness: Alert Orientation: x4 Motor Activity: Other (Extremely psychomotor slowed) Speech: Hesitant, Slow Language: Adequate Fund of Knowledge: Adequate Attention and Concentration: Inadequate Memory: Unremarkable (Grossly intact on clinical exam) Mood: Other ("Okay") Affect: Other (Dysphoric) Thought Process & Associations: Other (Slowed) Thought Content: Appropriate Hallucination Type: None Delusion Type: None Suicidal Ideation: No (Unreliable to contract for safety) Suicidal Plan: No Suicidal Intention: No Homicidal Ideation: No Homicidal Plan: No Homicidal Intention: No Insight: Fair Judgment: Impulsive Results Labs Date/Time Source Procedure Growth Status 01/21/18 15:00 Urine Random Urine Urine Culture - Final 50-100,000 CFU/ML MIXED BECKI... Complete Vitals/IOs Vital Signs Date Time Temp Pulse Resp B/P (MAP) Pulse Ox O2 Delivery O2 Flow Rate FiO2 02/03/18 05:35 97.9 63 15 113/62 (79) 95 Intake and Output 02/03/18 02/03/18 02/04/18 08:00 16:00 00:00 Intake Total 60 ml 360 ml Balance 60 ml 360 ml Assessment & Plan Problem List: (1) Bipolar I disorder with catatonia ICD Codes: F31.9 - Bipolar disorder, unspecified; F06.1 - Catatonic disorder due to known physiological condition Assessment & Plan Patient continues with noted psychomotor retardation but noted to be more interactive and reactive during interview. Patient with improvement in nutritional intake although continues to lack adequacy, continue to encourage adequate nutritional intake and hydration. Patient reported constipation therefore we will consult hospitalist to address this. Patient does not seem too sedated and therefore we will continue current Ativan dose at 1 mg every 8 hours we will continue to monitor for recurrence of catatonia. Continue rest of medications, we will reorder EKG to trend QTc interval. We will continue to monitor mood and behavior. Discharge planning in progress. Justification for Cont. Inpt. At risk of further decompensation a lower level of care. Request HC Surrog/Guard Advoc?: Yes Michael Freire MD Feb 03, 2018 11:35
--- NOTE | 2018-02-03 11:56 | HHI.PR ---
Subjective Remarks Follow-up on patient with hypertension, poor oral intake, possible UTI. Patient seen and examined resting in bed comfortably, flat affect but does talk. Reports she is eating some, voiding without dysuria. Reports constipation states she has only had 2 BM since she has been here. Denies any N/V abdominal pain or discomfort, denies fevers, chills, cough, or SOB. She does not offer any other complaints at this moment. Objective Vitals Vital Signs Date Time Temp Pulse Resp B/P (MAP) Pulse Ox O2 Delivery O2 Flow Rate FiO2 02/03/18 05:35 97.9 63 15 113/62 (79) 95 02/02/18 18:00 97.6 82 15 110/56 (74) 96 I/O 02/02/18 02/02/18 02/02/18 02/03/18 02/03/18 02/03/18 07:00 15:00 23:00 07:00 15:00 23:00 Intake Total 60 ml 1440 ml 240 ml 60 ml 360 ml Balance 60 ml 1440 ml 240 ml 60 ml 360 ml Intake Oral 60 ml 1440 ml 240 ml 60 ml 360 ml # Voids 1 Result Diagram: 02/02/18 1115 Imaging Last Impressions Abdomen X-Ray 02/03/18 0000 Signed Impressions: CONCLUSION: Mild constipation, especially rectosigmoid. No evidence for obstruction or free air. Objective Remarks GENERAL: This is a well-nourished, well-developed patient, female, making little eye contact and withdrawn. SKIN: Cool and dry. HEAD: Atraumatic. Normocephalic. EYES: Pupils equal round. No scleral icterus. No injection or drainage. ENT: Nose without bleeding, purulent drainage. Airway patent. NECK: Trachea midline. No JVD. CARDIOVASCULAR: Regular rate and rhythm no gallops, or rubs. 2/6 murmur. RESPIRATORY: Clear to auscultation. Breath sounds equal bilaterally. No wheezes , rales, or rhonchi. GASTROINTESTINAL: Abdomen soft, non-tender, nondistended. No masses. No guarding. Hypoactive bowel sounds. MUSCULOSKELETAL: Extremities without clubbing, cyanosis, or edema. NEUROLOGICAL: Awake and alert. Cranial nerves II through XII grossly intact. Motor and sensory grossly within normal limits. Speech is clear, slow, with frequent pausing. Procedures None A/P Assessment and Plan 72-year-old female who reports a past medical history significant for hypertension, hypothyroidism following thyroidectomy due to cancer, rheumatoid arthritis, heart murmur, bipolar disorder, depression, and fibromyalgia who presented to the emergency department accompanied by her on 01/21 from patient's doctor's office. Patient had apparently had an 18 pound weight loss along with decreased appetite which prompted referral to the emergency department. [facility] has been consulted to assist with management of medical condition including possible UTI and status post thyroidectomy. Bipolar disorder/depression -Continue treatment plan per psychiatry -Cardiology has cleared for antipsychotics with followup EKG to evaluate QTc. Repeat EKG obtained 01/29, QTc 426. - is serving as healthcare surrogate Hypothyroidism s/p thyroidectomy secondary to cancer TSH 15.2, free T3 1.79, free T4 1.46 -TSH elevated likely due to noncompliance with medications -Synthroid resumed, check repeat TSH/T4 in 6 weeks Hypertension, now hypotensive -Decrease Norvasc dose to 2.5 mg daily with hold parameters. May need to discontinue altogether. BP this am stable -Vasotec IV prn -Continue to monitor BP and adjust treatment accordingly Weight loss, Poor oral intake Possibly linked to bipolar depression leading to poor p.o. intake -Medication adjustments per psychiatry -Continue on Megace -Assembly Detailer consulted, calorie count completed, inadequate p.o. intake. Recommending tube feedings, checking daily electrolytes, multivitamin and thiamine daily. Patient had only been on third dose of Megace when calorie count was completed. Now that patient's p.o. intake has improved, dietitian following repeat calorie count in process. -strict I&Os -encourage fluid intake - Accu-Cheks DCed. Hypokalemia, persistent despite repletion Hypomagnesemia, resolved -s/p IV replacement now on scheduled daily replacement. -Potassium level this morning 3.5. Constipation with only 2 BM's reported -Likely secondary to poor p.o. intake in combination with dehydration -Continue bowel program, encourage oral hydration - Unable to lock bathroom to monitor to BM as this is a shared room -KUB completed on 02/03 reviewed, mild constipation especially in the rectosigmoid. Increase Andreea-Colace to twice daily, add as needed Dulcolax suppository. DVT prophylaxis-ambulation, Heparin sq - SCD/MADAY hose as patient intermittently refusing heparin Discussed with RN and patient. Lina Cintron Feb 03, 2018 11:56
--- NOTE | 2018-02-03 12:54 | RADRPT ---
EXAM DATE: 02/03/2018 12:35 PM EDT AGE/SEX: 72 years / Female INDICATIONS: Constipation for two weeks. Evaluate for obstruction. CLINICAL DATA: This is the patient's subsequent encounter. Patient reports that signs and symptoms h ave been present for 2 weeks and indicates a pain score of 3/10. MEDICAL/SURGICAL HISTORY: None. None. COMPARISON: No prior exams available for comparison. FINDINGS: The abdominal bowel gas pattern is normal except for mild constipation, especially rectosigmoid.. N o abnormal masses, calcifications, or organomegaly is seen. The osseous structures are unremarkable. CONCLUSION: Mild constipation, especially rectosigmoid. No evidence for obstruction or free air. Electronically signed by: Miller Andres MD 02/03/2018 12:53 PM EDT
[2018-02-03 13:44] LABS: BICARBONATE 26.1 MEQ/L (21.0-32.0); CALCIUM 9.2 MG/DL (8.5-10.1); CREATININE 0.76 MG/DL (0.50-1.00)
[2018-02-03] MEDS ORDERED: BISACODYL 10 MG SUPP RECTAL PRN (14:00)
[2018-02-03 18:36] VITALS: BP 101/57; PULSE 70; RESP 16; TEMP 98.2; O2SAT 97
[2018-02-04 04:37] VITALS: BP 111/62; PULSE 55; RESP 16; TEMP 98; O2SAT 96
[2018-02-04] MEDS: LORazepam 1 MG TAB PO SCH ×2 (04:38→21:14)
[2018-02-04] MEDS: THIAMINE HCL 100 MG TAB PO SCH (08:23)
[2018-02-04] MEDS: DOCUSATE SODIUM 50 MG/SENNA 8.6 MG TAB PO SCH ×2 (08:23→20:00)
[2018-02-04] MEDS: MAGNESIUM HYDROXIDE SUSP 30 ML CUP PO PRN (08:23)
[2018-02-04] MEDS: MULTIVITAMIN TAB PO SCH (08:23)
[2018-02-04] MEDS: ZIPRASIDONE HCL 40 MG CAP PO SCH ×2 (08:23→17:37)
[2018-02-04] MEDS: POLYETHYLENE GLYCOL 17 GM PKG PO PRN (08:23)
[2018-02-04] MEDS: MEGESTROL ACETATE SUSP 400 MG/10 ML CUP PO SCH (08:23)
[2018-02-04] MEDS: ASPIRIN EC 81 MG TABEC PO SCH (08:23)
[2018-02-04] MEDS: HEPARIN SODIUM - SQ 10,000 UNITS/ML VIAL SQ SCH ×2 (08:24→21:00)
[2018-02-04] MEDS: POTASSIUM CHLORIDE 20 MEQ CONTROLLED RELEASE TAB PO SCH (08:24)
[2018-02-04] MEDS: amLODIPine BESYLATE 5 MG TAB PO SCH (08:24)
[2018-02-04] MEDS: DIVALPROEX DR 500 MG TABEC PO SCH ×2 (08:25→21:14)
--- NOTE | 2018-02-04 14:25 | HHI.PR ---
Subjective Remarks Follow-up on patient with hypertension, poor oral intake, possible UTI. Nursing staff reports patient refused medications today as patient reported that she did not need this medication and she is now eating. Patient is seen and examined sitting up in chair and reports that she is eating meals. She denies any fevers, chills, nausea, vomiting, dysuria, diarrhea or abdominal pain. She continues to complain of ongoing constipation and states that she had a "smear" stool today but still feels as if she has to move her bowels. Objective Vitals Vital Signs Date Time Temp Pulse Resp B/P (MAP) Pulse Ox O2 Delivery O2 Flow Rate FiO2 02/04/18 04:37 98.0 55 16 111/62 (78) 96 02/03/18 18:36 98.2 70 16 101/57 (72) 97 I/O 02/03/18 02/03/18 02/03/18 02/04/18 02/04/18 02/04/18 07:00 15:00 23:00 07:00 15:00 23:00 Intake Total 60 ml 610 ml 700 ml 60 ml 480 ml Balance 60 ml 610 ml 700 ml 60 ml 480 ml Intake Oral 60 ml 610 ml 700 ml 60 ml 480 ml # Voids 1 Result Diagram: 02/03/18 1220 Imaging Last Impressions Abdomen X-Ray 02/03/18 0000 Signed Impressions: CONCLUSION: Mild constipation, especially rectosigmoid. No evidence for obstruction or free air. Objective Remarks GENERAL: This is a well-nourished, well-developed patient, female, withdrawn making more eye contact. SKIN: Cool and dry. HEAD: Atraumatic. Normocephalic. EYES: Pupils equal round. No scleral icterus. No injection or drainage. ENT: Nose without bleeding, purulent drainage. Airway patent. NECK: Trachea midline. CARDIOVASCULAR: Regular rate and rhythm no gallops, or rubs. 2/6 murmur. RESPIRATORY: Clear to auscultation. Breath sounds equal bilaterally. No wheezes , rales, or rhonchi. GASTROINTESTINAL: Abdomen soft, non-tender, nondistended. No masses. No guarding. Hypoactive bowel sounds. MUSCULOSKELETAL: Extremities without clubbing, cyanosis, or edema. NEUROLOGICAL: Awake and alert. Cranial nerves II through XII grossly intact. Motor and sensory grossly within normal limits. Speech is clear, slow, with frequent pausing. Procedures None A/P Assessment and Plan 72-year-old female who reports a past medical history significant for hypertension, hypothyroidism following thyroidectomy due to cancer, rheumatoid arthritis, heart murmur, bipolar disorder, depression, and fibromyalgia who presented to the emergency department accompanied by her on 01/21 from patient's doctor's office. Patient had apparently had an 18 pound weight loss along with decreased appetite which prompted referral to the emergency department. [facility] has been consulted to assist with management of medical condition including possible UTI and status post thyroidectomy. Bipolar disorder/depression -Continue treatment plan per psychiatry -Cardiology has cleared for antipsychotics with followup EKG to evaluate QTc. Repeat EKG obtained 01/29, QTc 426. - is serving as healthcare surrogate Hypothyroidism s/p thyroidectomy secondary to cancer TSH 15.2, free T3 1.79, free T4 1.46 -TSH elevated likely due to noncompliance with medications -Synthroid resumed, check repeat TSH/T4 in 6 weeks Hypertension, now hypotensive -Decrease Norvasc dose to 2.5 mg daily with hold parameters. May need to discontinue altogether. BP fluctuating but stable. -Vasotec IV prn -Continue to monitor BP and adjust treatment accordingly Weight loss, Poor oral intake Possibly linked to bipolar depression leading to poor p.o. intake -Medication adjustments per psychiatry -Continue on Megace, discussed with patient the importance of compliance. -Short Haul Driver consulted, calorie count completed, inadequate p.o. intake. Recommending tube feedings, checking daily electrolytes, multivitamin and thiamine daily. Patient had only been on third dose of Megace when calorie count was completed. Now that patient's p.o. intake has improved, dietitian following repeat calorie count in process. -Calorie count to be completed tomorrow morning, pending recommendations. -strict I&Os -encourage fluid intake - Accu-Cheks DCed. Hypokalemia, persistent despite repletion Hypomagnesemia, resolved -s/p IV replacement now on scheduled daily replacement. -Potassium level 02/03 was 3.5. Constipation with only 2 BM's reported -Likely secondary to poor p.o. intake in combination with dehydration -Continue bowel program, encourage oral hydration - Unable to lock bathroom to monitor to BM as this is a shared room -KUB completed on 02/03 reviewed, mild constipation especially in the rectosigmoid. -Continue Andreea-Colace BID, fleets enema today DVT prophylaxis-ambulation, Heparin sq - SCD/MADAY humphries as patient intermittently refusing heparin Discussed with RN and patient. Lina Cintron Feb 04, 2018 14:24
[2018-02-04] MEDS ORDERED: SOD PHOSPHATE/SOD BIPHOSPHATE (ADULT) ENEMA 133ML RECTAL ONE (15:00)
--- NOTE | 2018-02-04 17:06 | HHI.PYPN ---
Subjective Chief Complaint: Depression, self-care deficit Remarks Patient seen for follow, chart reviewed. Discussion nursing staff reported the patient as a pleasant, cooperative compliant medications eating and drinking better. Patient was found sitting in hospital bed noted B, cooperative. Patient states she is feeling "groggy" from the medications and states that she has been attempting to eat more now. Patient reports sleeping well, tolerates current medications, states that her mood has been "groggy" but also reporting feeling less depressed today and denying any suicidal homicidal ideations. Patient encouraged to attend groups and be more ambulatory which she agreed. Review of Systems Except as stated in HPI: all other systems reviewed are Neg Mental Status Examination Appearance: Appropriate Consciousness: Alert Orientation: x4 Motor Activity: Other (Extremely psychomotor slowed) Speech: Hesitant, Slow Language: Adequate Fund of Knowledge: Adequate Attention and Concentration: Inadequate Memory: Unremarkable (Grossly intact on clinical exam) Mood: Other ("Okay") Affect: Sad Thought Process & Associations: Other (Slowed but started to lessen) Thought Content: Appropriate Hallucination Type: None Delusion Type: None Suicidal Ideation: No (Unreliable to contract for safety) Suicidal Plan: No Suicidal Intention: No Homicidal Ideation: No Homicidal Plan: No Homicidal Intention: No Insight: Fair Judgment: Impulsive Results Labs Labs reviewed Test 02/04/18 10:30 Valproic Acid (Depakene) Level 93 MCG/ML Date/Time Source Procedure Growth Status 01/21/18 15:00 Urine Random Urine Urine Culture - Final 50-100,000 CFU/ML MIXED BECKI... Complete Vitals/IOs Vital Signs Date Time Temp Pulse Resp B/P (MAP) Pulse Ox O2 Delivery O2 Flow Rate FiO2 02/04/18 04:37 98.0 55 16 111/62 (78) 96 Intake and Output 02/04/18 02/04/18 02/04/18 07:59 15:59 23:59 Intake Total 60 ml 480 ml Balance 60 ml 480 ml Assessment & Plan Problem List: (1) Bipolar I disorder with catatonia ICD Codes: F31.9 - Bipolar disorder, unspecified; F06.1 - Catatonic disorder due to known physiological condition Assessment & Plan Patient this time continues with depressed mood, although noted to be increasing interactions, eating more now. We will decrease Lorazepam to 0.5 mg p.o. twice daily/1 mg p.o. at bedtime, continue to monitor for signs of resurgence of catatonia. Continue rest of medications, continue recommendations as per prior medical team. Hospice consult input appreciated. Discharge planning in progress. Justification for Cont. Inpt. At risk of further decompensation a lower level of care. Request HC Surrog/Guard Advoc?: Yes Michael Freire MD Feb 04, 2018 17:06
[2018-02-04 18:46] VITALS: BP 131/74; PULSE 89; RESP 16; TEMP 98.4; O2SAT 97
[2018-02-05] MEDS: LORazepam 0.5 MG TAB PO SCH ×2 (05:54→14:00)
[2018-02-05] MEDS: LEVOTHYROXINE SODIUM 125 MCG TAB PO SCH (05:54)
[2018-02-05 06:00] VITALS: BP 101/58; PULSE 59; RESP 17; TEMP 98.1; O2SAT 96
[2018-02-05] MEDS: DOCUSATE SODIUM 50 MG/SENNA 8.6 MG TAB PO SCH ×2 (08:00→20:16)
--- NOTE | 2018-02-05 08:33 | HHI.PR ---
Subjective Remarks Follow-up on patient with hypertension, poor oral intake, and constipation. Patient continues to complain of ongoing constipation and reports "smears" for stools. Nursing staff unable to assess for number of bowel movements. Patient reports she is eating but is concerned because she is eating and still has constipation. Patient denies any nausea, vomiting, abdominal pain, fevers, chills, dysuria, cough or shortness of breath. Objective Vitals Vital Signs Date Time Temp Pulse Resp B/P (MAP) Pulse Ox O2 Delivery O2 Flow Rate FiO2 02/05/18 06:00 98.1 59 17 101/58 (72) 96 02/04/18 18:46 98.4 89 16 131/74 (93) 97 I/O 02/04/18 02/04/18 02/04/18 02/05/18 02/05/18 02/05/18 07:00 15:00 23:00 07:00 15:00 23:00 Intake Total 60 ml 480 ml 720 ml Balance 60 ml 480 ml 720 ml Intake Oral 60 ml 480 ml 720 ml # Voids 1 1 1 Result Diagram: 02/03/18 1220 Imaging Last Impressions Abdomen X-Ray 02/03/18 0000 Signed Impressions: CONCLUSION: Mild constipation, especially rectosigmoid. No evidence for obstruction or free air. Objective Remarks GENERAL: This is a well-nourished, well-developed patient, female, withdrawn making more eye contact. SKIN: Cool and dry. HEAD: Atraumatic. Normocephalic. EYES: Pupils equal round. No scleral icterus. No injection or drainage. ENT: Nose without bleeding, purulent drainage. Airway patent. NECK: Trachea midline. CARDIOVASCULAR: Regular rate and rhythm no gallops, or rubs. 2/6 murmur. RESPIRATORY: Clear to auscultation. Breath sounds equal bilaterally. No wheezes , rales, or rhonchi. GASTROINTESTINAL: Abdomen soft, non-tender, nondistended. No masses. No guarding. Hypoactive bowel sounds. MUSCULOSKELETAL: Extremities without clubbing, cyanosis, or edema. NEUROLOGICAL: Awake and alert. Cranial nerves II through XII grossly intact. Motor and sensory grossly within normal limits. Speech is clear, slow, with frequent pausing. Procedures None A/P Assessment and Plan 72-year-old female who reports a past medical history significant for hypertension, hypothyroidism following thyroidectomy due to cancer, rheumatoid arthritis, heart murmur, bipolar disorder, depression, and fibromyalgia who presented to the emergency department accompanied by her on 01/21 from patient's doctor's office. Patient had apparently had an 18 pound weight loss along with decreased appetite which prompted referral to the emergency department. [facility] has been consulted to assist with management of medical condition including possible UTI and status post thyroidectomy. Bipolar disorder/depression -Continue treatment plan per psychiatry -Cardiology has cleared for antipsychotics with followup EKG to evaluate QTc. Repeat EKG obtained 01/29, QTc 426. - is serving as healthcare surrogate Hypothyroidism s/p thyroidectomy secondary to cancer TSH 15.2, free T3 1.79, free T4 1.46 -TSH elevated likely due to noncompliance with medications -Synthroid resumed, check repeat TSH/T4 in 6 weeks Hypertension, now hypotensive -Decrease Norvasc dose to 2.5 mg daily with hold parameters. May need to discontinue altogether. BP fluctuating but stable. -Vasotec IV prn -Continue to monitor BP and adjust treatment accordingly Weight loss, Poor oral intake Possibly linked to bipolar depression leading to poor p.o. intake -Medication adjustments per psychiatry -Continue on Megace, discussed with patient the importance of compliance. -Sanitation Superintendent reconsulted with calorie count completed today. Patient consuming greater than 50% of meals. Recommendations for patient to continue Megace, monitor intake as well as electrolytes. Continue Enlive -encourage fluid intake Hypokalemia, persistent despite repletion Hypomagnesemia, resolved -s/p IV replacement now on scheduled daily replacement. -Potassium level 02/03 was 3.5. Constipation -Likely secondary to poor p.o. intake in combination with dehydration -Continue bowel program, encourage oral hydration - Unable to lock bathroom to monitor to BM as this is a shared room -KUB completed on 02/03 reviewed, mild constipation especially in the rectosigmoid. -Continue Andreea-Colace BID, fleets enema yesterday - Continues to complain of constipation and only smear of stool yesterday, no BM reported by nursing staff. - Milk of mag today if no BM try Soapsuds enema, discussed with female staff nurse. DVT prophylaxis-ambulation, Heparin sq - SCD/MADAY santamariae as patient intermittently refusing heparin Discussed with RN and patient. Lina Cintron Feb 05, 2018 08:33
[2018-02-05] MEDS: MULTIVITAMIN TAB PO SCH (09:05)
[2018-02-05] MEDS: amLODIPine BESYLATE 5 MG TAB PO SCH (09:05)
[2018-02-05] MEDS: POTASSIUM CHLORIDE 20 MEQ CONTROLLED RELEASE TAB PO SCH (09:05)
[2018-02-05] MEDS: THIAMINE HCL 100 MG TAB PO SCH (09:05)
[2018-02-05] MEDS: ASPIRIN EC 81 MG TABEC PO SCH (09:05)
[2018-02-05] MEDS: ZIPRASIDONE HCL 40 MG CAP PO SCH ×2 (09:06→17:43)
[2018-02-05] MEDS: HEPARIN SODIUM - SQ 10,000 UNITS/ML VIAL SQ SCH ×2 (09:06→20:16)
[2018-02-05] MEDS: DIVALPROEX DR 500 MG TABEC PO SCH ×2 (09:06→20:16)
[2018-02-05] MEDS: MEGESTROL ACETATE SUSP 400 MG/10 ML CUP PO SCH (09:06)
--- NOTE | 2018-02-05 18:02 | HHI.PYPN ---
Subjective Chief Complaint: Depression, self-care deficit Remarks Patient seen for follow-up, chart reviewed. Discussion with nursing staff reported patient eating more, continues with sleep difficulty, compliant with treatment, complains of constipation. Patient was found sitting on hospital bed , noted to have improvement in interaction but continues with mild psychomotor retardation, continues to have minimal effort to participate in groups and activities. She reports attempting to eat more. She states feeling depressed being in the hospital but aware of the ongoing concerns of recent weight loss and depression having affected her physical health in that she was not caring for self. Review of Systems Gastrointestinal: COMPLAINS OF: Constipation Except as stated in HPI: all other systems reviewed are Neg Mental Status Examination Appearance: Appropriate Consciousness: Alert Orientation: x4 Motor Activity: Other (Extremely psychomotor slowed) Speech: Slow Language: Adequate Fund of Knowledge: Adequate Attention and Concentration: Inadequate Memory: Unremarkable (Grossly intact on clinical exam) Mood: Sad Affect: Blunt Thought Process & Associations: Other (Slowed but started to lessen) Thought Content: Appropriate Hallucination Type: None Delusion Type: None Suicidal Ideation: No Suicidal Plan: No Suicidal Intention: No Homicidal Ideation: No Homicidal Plan: No Homicidal Intention: No Insight: Fair Judgment: Impulsive Results Labs Date/Time Source Procedure Growth Status 01/21/18 15:00 Urine Random Urine Urine Culture - Final 50-100,000 CFU/ML MIXED BECKI... Complete Vitals/IOs Vital Signs Date Time Temp Pulse Resp B/P (MAP) Pulse Ox O2 Delivery O2 Flow Rate FiO2 02/05/18 06:00 98.1 59 17 101/58 (72) 96 Intake and Output 02/05/18 02/05/18 02/06/18 08:00 16:00 00:00 Intake Total 300 ml Balance 300 ml Assessment & Plan Problem List: (1) Bipolar I disorder with catatonia ICD Codes: F31.9 - Bipolar disorder, unspecified; F06.1 - Catatonic disorder due to known physiological condition Assessment & Plan Patient continues with depressed mood but improving in effort to recover as she is now eating about 50% of meals, noted to be up more but continues with poor motivation to participate in groups and activities. Patient will likely require short term rehab or home health services which treatment is currently exploring for referral. Patient to continue current treatment, will continue to taper lorazepam. continue recommendations as per primary medical team for constipation. Continue to encourage patient to participate in groups and activities and increase nutritional intake. Discharge planning in progress. Justification for Cont. Inpt. At risk for further decompensation if at lower level of care. Discharge Planning Referral to health and rehab Request HC Surrog/Guard Advoc?: Yes Michael Freire MD Feb 05, 2018 18:02
[2018-02-05 18:25] VITALS: BP 146/97; PULSE 81; RESP 16; TEMP 98.4; O2SAT 97
[2018-02-05] MEDS: POLYETHYLENE GLYCOL 17 GM PKG PO PRN (20:15)
[2018-02-05] MEDS: MAGNESIUM HYDROXIDE SUSP 30 ML CUP PO PRN (20:15)
[2018-02-05] MEDS: LORazepam 1 MG TAB PO SCH (20:16)
[2018-02-06 06:04] VITALS: BP 140/77; PULSE 60; RESP 16; TEMP 97.5; O2SAT 93
[2018-02-06] MEDS: DOCUSATE SODIUM 50 MG/SENNA 8.6 MG TAB PO SCH (08:00)
--- NOTE | 2018-02-06 08:36 | HHI.PR ---
Subjective Remarks Follow-up on patient with hypertension, poor oral intake, and constipation. Patient is seen and examined in her room, talkative and appears to be in no acute distress. She denies any fevers, chills, nausea, vomiting, diarrhea or headaches. Had a small bowel movement yesterday. Later in the morning nursing staff reports the patient had a large BM, will be discharged today. Objective Vitals Vital Signs Date Time Temp Pulse Resp B/P (MAP) Pulse Ox O2 Delivery O2 Flow Rate FiO2 02/06/18 06:04 97.5 60 16 140/77 (98) 93 02/05/18 18:25 98.4 81 16 146/97 (113) 97 I/O 02/05/18 02/05/18 02/05/18 02/06/18 02/06/18 02/06/18 07:00 15:00 23:00 07:00 15:00 23:00 Intake Total 300 ml 360 ml Balance 300 ml 360 ml Intake Oral 300 ml 360 ml # Voids 1 1 Result Diagram: 02/03/18 1220 Imaging Last Impressions Abdomen X-Ray 02/06/18 0000 Signed Impressions: CONCLUSION: Nonspecific bowel gas pattern. I don't see significant distention. Objective Remarks GENERAL: This is a well-nourished, well-developed patient, female, INAD. SKIN: Cool and dry. HEAD: Atraumatic. Normocephalic. EYES: Pupils equal round. No scleral icterus. No injection or drainage. ENT: Nose without bleeding, purulent drainage. Airway patent. NECK: Trachea midline. CARDIOVASCULAR: Regular rate and rhythm no gallops, or rubs. 2/6 murmur. RESPIRATORY: Clear to auscultation. Breath sounds equal bilaterally. No wheezes , rales, or rhonchi. GASTROINTESTINAL: Abdomen soft, non-tender, nondistended. No masses. No guarding. Hypoactive bowel sounds. MUSCULOSKELETAL: Extremities without clubbing, cyanosis, or edema. NEUROLOGICAL: Awake and alert. Cranial nerves II through XII grossly intact. Motor and sensory grossly within normal limits. Speech is clear, slow, with frequent pausing. Procedures None A/P Assessment and Plan 72-year-old female who reports a past medical history significant for hypertension, hypothyroidism following thyroidectomy due to cancer, rheumatoid arthritis, heart murmur, bipolar disorder, depression, and fibromyalgia who presented to the emergency department accompanied by her on 01/21 from patient's doctor's office. Patient had apparently had an 18 pound weight loss along with decreased appetite which prompted referral to the emergency department. [facility] has been consulted to assist with management of medical condition including possible UTI and status post thyroidectomy. Bipolar disorder/depression -Continue treatment plan per psychiatry -Cardiology has cleared for antipsychotics with followup EKG to evaluate QTc. Repeat EKG obtained 01/29, QTc 426. - is serving as healthcare surrogate, plans for discharge today. Hypothyroidism s/p thyroidectomy secondary to cancer TSH 15.2, free T3 1.79, free T4 1.46 -TSH elevated likely due to noncompliance with medications -Synthroid resumed, check repeat TSH/T4 in 6 weeks Hypertension, now hypotensive -Continue Norvasc 2.5 mg daily. Weight loss, Poor oral intake Possibly linked to bipolar depression leading to poor p.o. intake -Continue on Megace, discussed with patient the importance of compliance. -Trench Pipe Layer Helper reconsulted with calorie count completed. Patient consuming greater than 50% of meals. Recommendations for patient to continue Megace, monitor intake as well as electrolytes. Continue Enlive -encourage fluid intake Hypokalemia, persistent despite repletion Hypomagnesemia, resolved -s/p IV replacement now on scheduled daily replacement. -Potassium level 02/03 was 3.5. -Patient to continue p.o. potassium, check BMP in 1 week and follow up with her PCP. Constipation, resolved -Likely secondary to poor p.o. intake in combination with dehydration -Continue bowel program, encourage oral hydration - Unable to lock bathroom to monitor to BM as this is a shared room -KUB completed on 02/03 reviewed, mild constipation especially in the rectosigmoid. -Large BM today. DVT prophylaxis-ambulation, Heparin sq - SCD/MADAY santamariae as patient intermittently refusing heparin Discussed with RN and patient. Patient medically clear for discharge today. Lina Cintron Feb 06, 2018 08:36
--- NOTE | 2018-02-06 09:06 | HHI.PYPN ---
Subjective Chief Complaint: Depression, self-care deficit Remarks Patient seen for follow-up, chart reviewed. Discussion nursing staff reported the patient continues to endorse having minimal bowel movement, noted to be eating more and more interactive. Patient was found sitting in hospital bed eating breakfast and conversing with a roommate. Patient states that she is feeling "better" and that she is eating better and that she is motivated to continue her recovery. Patient noted to be somewhat resistant to referral to health and rehab and requesting to be discharged home. Patient denies any perceptional disturbances or delusions at this time. Review of Systems Except as stated in HPI: all other systems reviewed are Neg Mental Status Examination Appearance: Appropriate Consciousness: Alert Orientation: x4 Motor Activity: Other (Extremely psychomotor slowed) Speech: Slow Language: Adequate Fund of Knowledge: Adequate Attention and Concentration: Inadequate Memory: Unremarkable (Grossly intact on clinical exam) Mood: Other ("Better") Affect: Blunt (More reactive today) Thought Process & Associations: Intact, Goal directed, Linear Thought Content: Appropriate Hallucination Type: None Delusion Type: None Suicidal Ideation: No Suicidal Plan: No Suicidal Intention: No Homicidal Ideation: No Homicidal Plan: No Homicidal Intention: No Insight: Fair Judgment: Impulsive Results Labs Date/Time Source Procedure Growth Status 01/21/18 15:00 Urine Random Urine Urine Culture - Final 50-100,000 CFU/ML MIXED BECKI... Complete Vitals/IOs Vital Signs Date Time Temp Pulse Resp B/P (MAP) Pulse Ox O2 Delivery O2 Flow Rate FiO2 02/06/18 06:04 97.5 60 16 140/77 (98) 93 Assessment & Plan Problem List: (1) Bipolar I disorder with catatonia ICD Codes: F31.9 - Bipolar disorder, unspecified; F06.1 - Catatonic disorder due to known physiological condition Assessment & Plan Patient this time noted with improved nutritional intake, reports her mood has improved, denying suicide ideations. Patient likely for discharge today will await medical clearance and finalization whether patient will be accepted to health and rehab as per her insurance will be discharged home with home health services which will have to be out of pocket. Discharge planning in progress. Justification for Cont. Inpt. At risk of further decompensation a lower level of care. Discharge Planning To be determined. Request HC Surrog/Guard Advoc?: Yes Michael Freire MD Feb 06, 2018 09:06
--- NOTE | 2018-02-06 09:23 | RADRPT ---
EXAM DATE: 02/06/2018 9:19 AM EDT AGE/SEX: 72 years / Female INDICATIONS: Abdominal pain. Evaluate for ileus. CLINICAL DATA: This is the patient's subsequent encounter. Patient reports that signs and symptoms h ave been present for 3 days and indicates a pain score of 5/10. MEDICAL/SURGICAL HISTORY: None. None. COMPARISON: [facility] [place] ABDOMEN KUB ONLY, 02/03/2018. . FINDINGS: Bowel gas pattern is unremarkable. There is no significant dilatation. There are no abdominal calcif ications. There is no definite free air. Lung bases are clear. CONCLUSION: Nonspecific bowel gas pattern. I don't see significant distention. Electronically signed by: Bud Nevarez MD 02/06/2018 9:22 AM EDT
[2018-02-06] MEDS: amLODIPine BESYLATE 5 MG TAB PO SCH (10:05)
[2018-02-06] MEDS: ASPIRIN EC 81 MG TABEC PO SCH (10:05)
[2018-02-06] MEDS: DIVALPROEX DR 500 MG TABEC PO SCH (10:05)
[2018-02-06] MEDS: THIAMINE HCL 100 MG TAB PO SCH (10:06)
[2018-02-06] MEDS: POTASSIUM CHLORIDE 20 MEQ CONTROLLED RELEASE TAB PO SCH (10:06)
[2018-02-06] MEDS: ZIPRASIDONE HCL 40 MG CAP PO SCH (10:06)
[2018-02-06] MEDS: MULTIVITAMIN TAB PO SCH (10:06)
[2018-02-06] MEDS: MEGESTROL ACETATE SUSP 400 MG/10 ML CUP PO SCH (10:06)
[2018-02-06] MEDS: HEPARIN SODIUM - SQ 10,000 UNITS/ML VIAL SQ SCH (10:07)
[2018-02-06] MEDS ORDERED: Megestrol Liq PO (10:32)
[2018-02-06] MEDS ORDERED: AMLO5 PO (10:32)
[2018-02-06] MEDS ORDERED: DIVA500T PO (10:32)
[2018-02-06] MEDS ORDERED: THIA100 PO (10:32)
[2018-02-06] MEDS ORDERED: THERTAB15 PO (10:32)
[2018-02-06] MEDS ORDERED: PERI PO (10:32)
[2018-02-06] MEDS ORDERED: ZIPR40 PO (10:32)
[2018-02-06] MEDS ORDERED: LEVO.125 PO (10:32)
[2018-02-06] MEDS ORDERED: ASPI81TA16 PO (10:32)
[2018-02-06] MEDS ORDERED: LORA-474 PO (10:32)
[2018-02-06] MEDS ORDERED: LORA-392 PO (10:32)
[2018-02-06] MEDS ORDERED: POTA20TA5 PO (11:21)
--- NOTE | 2018-02-06 11:21 | HHI.DS ---
Psychiatry Discharge Summary Inpatient Psychiatric care?: Yes Advance Directive: Yes Mental Health AdvanceDirective: No Health Care Proxy: No Admission Admission Date Jan 22, 2018 at 09:54 Admission Diagnosis: (1) Bipolar I disorder with catatonia ICD Code: F31.9 - Bipolar disorder, unspecified; F06.1 - Catatonic disorder due to known physiological condition Brief History Ms. Jones is a 72-year-old female with a history of bipolar disorder who was sent to the ED by primary care provider with out of concern for depression in self-care deficit. She was evaluated and placed under a Bailey act by the psychiatric nurse practitioner in the emergency department. Reviewing the electronic medical record, I note the patient was admitted under Dr. Escalante in 2006. Patient seen and examined with nurse. Chart reviewed. Case discussed with nursing staff. Patient has been refusing medications. I also see that there is notation of significant weight loss recently. Patient presents as delayed and psychomotor slowed. Speech is soft with increased speech latency. She appears somewhat fretful, anxious and dysphoric. She is a alexithymic with respect to mood but says that she has felt poorly for the last month or so. She says that her symptoms began after she tapered off steroids for management of a joint condition. She endorses poor sleep and poor appetite. I can elicit no hypomanic or manic symptoms presently. She denies any suicidal or homicidal ideation but seems unreliable to contract for safety. She denies any audiovisual hallucinations. I can elicit no jie delusional material. Remainder of the psychiatric ROS is negative. No acute physical complaints. Venus to obtain collateral information from patient's Ilya Jones. I called both numbers listed in the EMR and left a generic voicemail requesting a call back at both. [Update: was able to reach later. He is willing to act as HCS. We discuss at great length patient's pharmacotherapeutic options for her psychiatric condition. He provides consent for meds as detailed below. We discuss legal status. I spent ~10min in telephone consultation with .] I was able to reach patient's brother Jeannie Alamo at the number listed in the EMR. He notes that patient's psychiatric illness began shortly after she her current . He notes that the family does not trust current , although he makes no specific allegations of abuse or mistreatment against the patient. Brother notes that the patient began "acting weird" about 2 weeks ago, refusing food and fluids. She "went into a shell." He is unable to recall any previous treatment regimens that the patient has been on. He cannot recall if the patient has received ECT in the past. Past psychiatric history: Patient is likely a poor historian. She reports a history of psychiatric illness "in the way past." She is under the care of a psychiatrist but cannot recall the name. She says that she was psychiatrically admitted "a long time ago." She denies any history of suicide attempts. Denies any history of ECT treatment in the past. Family history: Patient denies any family history of mental illness. Chemical dependency history: Patient denies any abuse of drugs or alcohol. Social history: Patient lives with her and daughter. She also has a son. She is college educated. 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 She denies any history. Denies any legal history. reportedly keeps firearms but the patient denies any history of suicide plan involving a gun. 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 The patient denies a history of trauma. Tobacco Use In Past 30 Days: No Tobacco Past 30 Days Alcohol Use: Never Hospital Course The patient is a 72-year-old woman, domiciled with her and daughter, retired, with psychiatric history of bipolar disorder, previous psychiatric admissions, no suicidal attempts, brought to the hospital due to symptoms of depression and concerned regarding her self-care which patient was admitted to the inpatient psychiatry for further evaluation and management. Patient was started on Depakote 500mg PO BID, ziprasidone 40mg PO BID and lorazepam due to catatonia which she responded well to and tolerated without any adverse drug reactions. Patient was followed by primary medical team and managed for hypothyroidism, hypertension, poor oral intake and constipation. Patient during the course of admission had been noted to have improvement in mood, noted improvement of psychomotor retardation, no longer with catatonic symptoms, improved nutritional intake and ambulating. She continued to deny any psychotic symptoms, homicidal ideation nor any perceptual disturbances. She responded well to treatment, was noted to be cooperative with staff, had good behavioral control with no evidence of any verbal or physical aggressive behavior toward others and was noted to have stable mood with treatment. Upon discharge patient reported feeling good denied any perceptual disturbances nor suicidal ideations or homicidal ideations. Patient agreed to continue treatment and follow up appointments for continuity of care. Patient will be discharged back to family who will stay with patient to assure continued improvement, provide assistance and connected to outpatient services. Treatment plan was explained to patient which she acknowledged. . Supportive psychotherapy provided. Suicide and violence risk assessment on day of discharge both suggest lower imminent risk, and the patient's level of function is adequate for planned level of outpatient care. Patient has maximized benefit from this inpatient psychiatric hospital stay and to return to psychiatric emergency room for any concerning psychiatric symptoms. Patient agrees with plan. Results Blood Pressure 140 / 77 Vital Signs Date Time Temp Pulse Resp B/P (MAP) Pulse Ox O2 Delivery O2 Flow Rate FiO2 02/06/18 06:04 97.5 60 16 140/77 (98) 93 Laboratory Tests Test 02/03/18 12:20 02/04/18 10:30 Estimat Glomerular Filtration Rate 75 ML/MIN (>89) Laboratory Results Test 01/23/18 06:44 02/04/18 10:30 Cholesterol Level 156 MG/DL (120-200) HDL Cholesterol 34.6 MG/DL (40.0-60.0) Hemoglobin A1c 5.3 % (4.3-6.0) LDL Cholesterol 100 MG/DL (0-99) Triglycerides Level 109 MG/DL (42-150) Valproic Acid (Depakene) Level 93 MCG/ML (50-100) Summary of Procedures none Imaging Last Impressions Abdomen X-Ray 02/06/18 0000 Signed Impressions: CONCLUSION: Nonspecific bowel gas pattern. I don't see significant distention. Pending results at discharge: No Medications # of Antipsychotic meds at D/C: 1 Approp Antipsych med options 1 - Minimum of three failed multiple trials of monotherapy. 2 - Documented plan to taper to monotherapy due to previous use of multiple meds OR cross-taper in progress at D/C. 3 - Documentation of augmentation of Clozapine. 4 - Justification other than those listed in allowable values 1-3, document here : Discharge Discharge Date: Feb 06, 2018 Discharge Diagnosis: (1) Bipolar I disorder with catatonia ICD Code: F31.9 - Bipolar disorder, unspecified; F06.1 - Catatonic disorder due to known physiological condition Pt Condition on Discharge: Stable Discharge Disposition: Disch w/ Home Health Serv Discharge Instructions Diet Instructions: Heart Healthy Diet Activities you can perform: Weight Bearing as Aisha Discharge Time > 30 minutes Mental Status Examination Appearance: Appropriate Consciousness: Alert Orientation: x4 Motor Activity: Other (Extremely psychomotor slowed) Speech: Slow Language: Adequate Fund of Knowledge: Adequate Attention and Concentration: Inadequate Memory: Unremarkable (Grossly intact on clinical exam) Mood: Appropriate Affect: Appropriate Thought Process & Associations: Intact, Goal directed, Linear Thought Content: Appropriate Hallucination Type: None Delusion Type: None Suicidal Ideation: No Suicidal Plan: No Suicidal Intention: No Homicidal Ideation: No Homicidal Plan: No Homicidal Intention: No Insight: Fair Judgment: Impulsive Discharge/Advance Care Plan Health Problems: (1) Bipolar I disorder with catatonia Goals to promote your health * To prevent worsening of your condition and complications * To maintain your health at the optimal level Directions to meet your goals Take your medications as prescribed Follow your dietary instruction Follow activity as directed Keep your appointments as scheduled Take your immunizations and boosters as scheduled If your symptoms worsen call your PCP, if no PCP go to Urgent Care Center or Emergency Room For 03/03 questions related to your inpatient stay or results of tests pending at discharge, please contact Dr. Michael Freire at Smoking is Dangerous to Your Health. Avoid second hand smoking Michael Freire MD Feb 06, 2018 11:21
[2018-02-06] MEDS ORDERED: LORazepam 0.5 MG TAB PO SCH (14:00)
== END 2018-02-06 12:40 | disposition home health service (06) | DRG 885 ==
LOC: NEPC 12:39 → NEDA 01-22 09:54 → H250 01-22 10:20 → H4EA 01-23 11:00
PROVIDERS: ADMIT Student in an Organized Health Care Education/Training Program; ATTEND Student in an Organized Health Care Education/Training Program
DX: F31.4 Bipolar disorder, current episode depressed, severe, without psychotic features (principal); I95.9 Hypotension, unspecified; E86.0 Dehydration; F06.1 Catatonic disorder due to known physiological condition; M06.9 Rheumatoid arthritis, unspecified; N30.01 Acute cystitis with hematuria; E83.42 Hypomagnesemia; I10 Essential (primary) hypertension; K59.00 Constipation, unspecified; E87.6 Hypokalemia; E89.0 Postprocedural hypothyroidism; F94.0 Selective mutism; I25.10 Atherosclerotic heart disease of native coronary artery without angina pectoris; M79.7 Fibromyalgia; R01.1 Cardiac murmur, unspecified; G47.9 Sleep disorder, unspecified; R63.4 Abnormal weight loss; F41.9 Anxiety disorder, unspecified; I45.81 Long QT syndrome; R94.6 Abnormal results of thyroid function studies; Z68.27 Body mass index [BMI] 27.0-27.9, adult; Z92.3 Personal history of irradiation; Z85.850 Personal history of malignant neoplasm of thyroid; Z91.14 Patient's other noncompliance with medication regimen; Z79.82 Long term (current) use of aspirin
CPT/HCPCS: 74018; 80048; 80053; 80061; 80164; 80307; 81001; 82140; 82948; 83036; 83735; 84100; 84132; 84439; 84443; 84481; 85025; 87086; 93005; J1644; J2060; J3480; J3486; J7030